=== PATIENT | female | born 1965 | race African-American/Black ===

== ENCOUNTER 2016-12-18 20:39 | Observation (INO) | payer MEDICARE, OTHER ==
[~2016-12-18] VITALS: Ht 172.7 cm; Wt 55.0 kg
[~2016-12-18 20:39] MED LIST: FOLI1TAB4 PO; HYDR500C2 PO; LEVE500 PO; LISI10TA3 PO; TYLETAB34 PO
[2016-12-18 21:45] VITALS: BP 126/64; PULSE 113; RESP 16; TEMP 98.7; O2SAT 100
[2016-12-18 21:50] LABS: MEAN CORPUSCULAR HGB CONC 37.4 % (32.0-36.0)
[2016-12-18 21:56] VITALS: BP 126/64; PULSE 109; RESP 22; O2SAT 90; O2SAT 93
[2016-12-18] MEDS ORDERED: SODIUM CHLORIDE 0.9% FLUSH 10 ML FLUSH IVF PRN (22:00)
--- NOTE | 2016-12-18 22:00 | PD ---
HPI Chief Complaint: Seizure Time Seen by Provider: 21:45 Travel History International Travel<30 days: No Contact w/Intl Traveler<30days: No Traveled to known affect area: No History of Present Illness HPI 51-year-old female with history of sickle cell disease, beta+thalassemia, seizure disorder on Keppra, developmental delay, here with mom for evaluation of seizure. The patient had a witnessed seizure while sitting in her chair that lasted for approximately 5 minutes according to her mom. Patient did not fall out of her chair or injure herself. Upon arrival to the emergency department the patient is awake and alert. She states that she feels well. She denies headache. She denies pain anywhere. No recent fever, cough, or illness. PFSH Past Medical History Arthritis: No Asthma: No Autoimmune Disease: No Anxiety: Yes Depression: No Heart Rhythm Problems: No Cancer: No Cardiovascular Problems: Yes (HEART MURMER) High Cholesterol: No Chemotherapy: No Chest Pain: No Congestive Heart Failure: No COPD: No Cerebrovascular Accident: No Developmental Delay: Yes ("BRAIN DAMAGE SINCE 2 YEARS OLD") Diabetes: No Endocrine: No GERD: No Genitourinary: Yes Headaches: Yes Hiatal Hernia: No Immune Disorder: No Kidney Stones: No Musculoskeletal: No Neurologic: Yes Psychiatric: Yes Reproductive: Yes Respiratory: No Immunizations Current: Yes Migraines: Yes Radiation Therapy: No Renal Failure: No Seizures: Yes (2005 AND 02/14/08) Sickle Cell Disease: Yes Sleep Apnea: No Thyroid Disease: No Ulcer: No PNEUMOCCOCAL Vaccine (Year): 1 ?: Not Menopausal: Yes : 0 Para: 0 Miscarriage: 0 : 0 Tubal Ligation: Yes Past Surgical History Abdominal Surgery: No AICD: No Arteriovenous Shunt: No Cardiac Surgery: No Cholecystectomy: Yes (UNABLE TO VERIFY) Ear Surgery: No Endocrine Surgery: No Eye Surgery: No Genitourinary Surgery: No Gynecologic Surgery: Yes (TUBAL LIGATION) Insulin Pump: No Joint Replacement: No Oral Surgery: No Pacemaker: No Thoracic Surgery: No Other Surgery: Yes Social History Alcohol Use: No Tobacco Use: No Substance Use: No Allergies-Medications (Allergen,Severity, Reaction): Coded Allergies: Erythromycin (Verified Allergy, Severe, 09/29/16) Uncoded Allergies: MYCINS (Allergy, Severe, EDEMA, 09/26/13) Reported Meds & Prescriptions Reported Meds & Active Scripts Active Lisinopril 10 Mg Tab 10 Mg PO DAILY Reported Hydroxyurea 500 Mg Cap 500 Mg PO BID Keppra (Levetiracetam) 500 Mg Tab 500 Mg PO BID Folate (Folic Acid) 1 Mg Tab 1 Mg PO DAILY Tylenol-Codeine #3 (Acetaminophen-Codeine) 300-30 mg Tab 1 Tab PO Q6H PRN Review of Systems Except as stated in HPI: all other systems reviewed are Neg Physical Exam Narrative GENERAL: Well-developed, well-nourished, awake, alert, no acute distress. SKIN: Focused skin assessment warm/dry. HEAD: Atraumatic. Normocephalic. EYES: Pupils equal and round. No scleral icterus. No injection or drainage. ENT: Mucous membranes pink and moist. NECK: Trachea midline. No JVD. No nuchal rigidity. CARDIOVASCULAR: Regular rate and rhythm. RESPIRATORY: No accessory muscle use. Clear to auscultation. Breath sounds equal bilaterally. GASTROINTESTINAL: Abdomen soft, non-tender, nondistended. MUSCULOSKELETAL: No obvious deformities. No clubbing. No cyanosis. No edema. NEUROLOGICAL: Awake and alert. No obvious cranial nerve deficits. Motor grossly within normal limits. Normal speech. PSYCHIATRIC: Appropriate mood and affect; insight and judgment normal. Data Data Last Documented VS Vital Signs Date Time Temp Pulse Resp B/P Pulse Ox O2 Delivery O2 Flow Rate FiO2 12/18/16 21:56 90 Nasal Cannula 4 12/18/16 21:56 109 22 126/64 12/18/16 21:45 98.7 Orders Complete Blood Count With Diff (12/18/16 21:48) Blood Glucose (12/18/16 21:48) Ecg Monitoring (12/18/16 21:48) Iv Access Insert/Monitor (12/18/16 21:48) Oximetry (12/18/16 21:48) Comprehensive Metabolic Panel (12/18/16 21:48) Sodium Chloride 0.9% Flush (Ns Flush) (12/18/16 22:00) Urinalysis - C+S If Indicated (12/18/16 21:48) Retic Count (12/18/16 21:48) Ct Brain W/O Iv Contrast(Rout) (12/18/16 21:57) Chest, Single Ap (12/18/16 ) Type And Screen (12/18/16 22:19) Ldh Serum (12/18/16 22:38) Red Blood Cells (Rbc) (12/18/16 22:43) Blood Product Administration .UPON TRANSFUSION (12/18/16 22:43) Sodium Chlor 0.9% 250 Ml Inj (Ns 250 Ml (12/18/16 22:45) Urine Culture (12/18/16 22:30) Labs Laboratory Tests Test 12/18/16 12/18/16 21:55 22:30 White Blood Count 5.4 TH/MM3 Red Blood Count 1.42 MIL/MM3 Hemoglobin 5.2 GM/DL Hematocrit 14.0 % Mean Corpuscular Volume 98.2 FL Mean Corpuscular Hemoglobin 36.7 PG Mean Corpuscular Hemoglobin 37.4 % Concent Red Cell Distribution Width 27.0 % Platelet Count 178 TH/MM3 Mean Platelet Volume 7.5 FL Neutrophils (%) (Auto) 61.1 % Lymphocytes (%) (Auto) 21.6 % Monocytes (%) (Auto) 13.1 % Eosinophils (%) (Auto) 3.1 % Basophils (%) (Auto) 1.1 % Neutrophils # (Auto) 3.3 TH/MM3 Lymphocytes # (Auto) 1.2 TH/MM3 Monocytes # (Auto) 0.7 TH/MM3 Eosinophils # (Auto) 0.2 TH/MM3 Basophils # (Auto) 0.1 TH/MM3 CBC Comment AUTO DIFF Differential Total Cells 100 Counted Neutrophils % (Manual) 67 % Lymphocytes % 23 % Monocytes % 8 % Eosinophils % 2 % Neutrophils # (Manual) 3.6 TH/MM3 Nucleated Red Blood Cells 13 /100 WBC Differential Comment FINAL DIFF MANUAL Platelet Estimate NORMAL Platelet Morphology Comment NORMAL Polychromasia 2.5 % Sickle Cells 3+ Ovalocytes 1+ Reticulocyte Count 12.4 % Absolute Reticulocyte Count 175.9 MIL/L Sodium Level 141 MEQ/L Potassium Level 4.4 MEQ/L Chloride Level 108 MEQ/L Carbon Dioxide Level 24.8 MEQ/L Anion Gap 8 MEQ/L Blood Urea Nitrogen 18 MG/DL Creatinine 0.84 MG/DL Estimat Glomerular Filtration 86 ML/MIN Rate Random Glucose 113 MG/DL Calcium Level 8.5 MG/DL Total Bilirubin 2.5 MG/DL Aspartate Amino Transf 61 U/L (AST/SGOT) Alanine Aminotransferase 24 U/L (ALT/SGPT) Alkaline Phosphatase 128 U/L Lactate Dehydrogenase 934 U/L Total Protein 7.2 GM/DL Albumin 3.5 GM/DL Urine Color LIGHT-YELLOW Urine Turbidity CLEAR Urine pH 6.5 Urine Specific [place] 1.007 Urine Protein 30 mg/dL Urine Glucose (UA) NEG mg/dL Urine Ketones NEG mg/dL Urine Occult Blood MOD Urine Nitrite NEG Urine Bilirubin NEG Urine Urobilinogen LESS THAN 2.0 MG/DL Urine Leukocyte Esterase NEG Urine RBC LESS THAN 1 /hpf Urine WBC 1 /hpf Urine Bacteria RARE /hpf Urine Mucus FEW /lpf Microscopic Urinalysis Comment CATH-CULTURE IND MDM Medical Decision Making Medical Screen Exam Complete: Yes Emergency Medical Condition: Yes Differential Diagnosis Seizure, sickle cell crisis, intracranial abnormality, metabolic abnormality Narrative Course Initial vital signs show heart rate 113, blood pressure 126/64, pulse ox 100% on room air, oral temp of 98.7F. CBC is remarkable for hemoglobin 5.2, hematocrit 14 which is slightly lower than her baseline of around 6. Retic count is 12.4%. Patient is awake and alert. There are no focal neurologic deficits. She is not in any respiratory distress. Case discussed with on-call tour sales representative Dr. Castro covering for Dr. Kelly. Patient will be transfused 1 unit of PRBCs. He would like LVH and T bili checked to evaluate for possible hemolysis. The patient and the patient's mom were made aware of recommendation for PRBCs. CMP is essentially unremarkable. T bili is 2.5 which is around her baseline. Case discussed with electromedical service engineer. The patient will be admitted to their service for overnight observation under Dr. Ponce Diagnosis Primary Impression: Seizure Additional Impression: Sickle cell anemia Qualified Code: D57.00 - Hb-SS disease with crisis Admitting Information Admitting Physician Requests: Observation Brayden Waters MD Dec 18, 2016 22:00
[2016-12-18 22:10] LABS: AUTOMATED NEUTROPHIL # 3.3 TH/MM3 (1.8-7.7); BASOPHIL # 0.1 TH/MM3 (0-0.2); BASOPHIL % 1.1 % (0.0-2.0); EOSINOPHIL # 0.2 TH/MM3 (0-0.4); EOSINOPHIL % 3.1 % (0.0-4.0); LYMPH % 21.6 % (9.0-44.0); LYMPHOCYTE # 1.2 TH/MM3 (1.0-4.8); MEAN CELL VOLUME 98.2 FL (80.0-100.0); MEAN CORPUSCULAR HEMOGLOBIN 36.7 PG (27.0-34.0); MONO % 13.1 % (0.0-8.0); NEUT % 61.1 % (16.0-70.0); PLATELET COUNT 178 TH/MM3 (150-450); RED BLOOD COUNT 1.42 MIL/MM3 (4.00-5.30); RETIC % 12.4 % (0.4-3.0); WHITE BLOOD COUNT 5.4 TH/MM3 (4.0-11.0)
[2016-12-18 22:12] LABS: HEMO FLAGS AUTO DIFF
[2016-12-18 22:13] LABS: REVIEW FLAG AUTO DIFF
[2016-12-18 22:30] VITALS: BP 125/80; PULSE 94; RESP 18; O2SAT 99
--- NOTE | 2016-12-18 22:37 | RADRPT ---
EXAM DATE/TIME: 12/18/2016 22:03 [facility] COMPARISON: CT BRAIN W/O CONTRAST, July 11, 2015, 16:50. INDICATIONS : Seizures and altered mental status. RADIATION DOSE: 33.84 CTDIvol (mGy) MEDICAL HISTORY : Seizures. Cardiovascular disease SURGICAL HISTORY : Cholecystectomy. Tubal ligation. ENCOUNTER: Initial ACUITY: 1 day PAIN SCALE: 4/10 LOCATION: cranial TECHNIQUE: Multiple contiguous axial images were obtained of the head. Using automated exposure control and adj ustment of the mA and/or kV according to patient size, radiation dose was kept as low as reasonably a chievable to obtain optimal diagnostic quality images. FINDINGS: CEREBRUM: The ventricles are normal for age. No evidence of midline shift, mass lesion, hemorrhage or acute in farction. No extra-axial fluid collections are seen. POSTERIOR FOSSA: The cerebellum and brainstem are intact. The 4th ventricle is midline. The cerebellopontine angle i s unremarkable. EXTRACRANIAL: The visualized portion of the orbits is intact. SKULL: The calvaria is intact. No evidence of skull fracture. CONCLUSION: Normal examination. Suhail Terrazas MD on December 18, 2016 at 22:34 Board Certified Radiologist. This report was verified electronically.
[2016-12-18] MEDS ORDERED: SODIUM CHLOR 0.9% 250 ML INJ 250 ML IV ONE (22:45)
[2016-12-18 22:50] LABS: ALKALINE PHOSPHATASE 128 U/L (45-117); ALT (GPT) 24 U/L (10-53); ANION GAP 8 MEQ/L (5-15); AST (GOT) 61 U/L (15-37); BICARBONATE 24.8 MEQ/L (21.0-32.0); BLOOD UREA NITROGEN 18 MG/DL (7-18); CHLORIDE 108 MEQ/L (98-107); GLOMERULAR FILTRATION RATE 86 ML/MIN (>89); POTASSIUM 4.4 MEQ/L (3.5-5.1); SODIUM (NA) 141 MEQ/L (136-145); TOTAL BILIRUBIN ADULT 2.5 MG/DL (0.2-1.0)
[2016-12-18 23:03] LABS: BACTERIA, URINE RARE /hpf; BLOOD, URINE MOD (NEG); GLUCOSE,URINE NEG (NEG); KETONE, URINE NEG (NEG); MUCUS URINE FEW /lpf (OCC); NITRITE,URINE NEG (NEG); PH, URINE 6.5 (5.0-8.5); URINE COLOR LIGHT-YELLOW (YELLW/STRAW)
[2016-12-18 23:05] LABS: COMMENT (UR) CATH-CULTURE IND; CULTURE IF INDICATED CATH CULTURE IND
[2016-12-18 23:06] LABS: CORRECTED NUCLEATED RBC 13 /100 WBC (0-0); EOSINOPHILS 2 % (0-4); NEUTROPHIL # MANUAL DIFF 3.6 TH/MM3 (1.8-7.7); POLYS (SEG NEUTROPHILS) 67 % (16-70); WBC DIFF SAMPLE 100
[2016-12-18 23:08] LABS: POLYCHROMASIA 2.5 % (0.0-1.9)
[2016-12-18 23:09] LABS: OVALOCYTES 1+ (NORMAL); PLATELET ESTIMATE SMEAR NORMAL (NORMAL); PLATELET MORPHOLOGY NORMAL (NORMAL); SCAN/DIFF FINAL DIFF MANUAL; SICKLE CELLS 3+ (NORMAL)
[2016-12-18 23:15] VITALS: BP 121/67; PULSE 88; RESP 18; O2SAT 98
--- NOTE | 2016-12-18 23:53 | RADRPT ---
EXAM DATE/TIME: 12/18/2016 23:05 [facility] COMPARISON: CHEST SINGLE AP, March 11, 2014, 11:00. INDICATIONS : Shortness of breath. MEDICAL HISTORY : Cardiovascular disease. Seizures SURGICAL HISTORY : Cholecystectomy. Tubal ligation. ENCOUNTER: Initial ACUITY: 1 day PAIN SCORE: 0/10 LOCATION: Bilateral chest FINDINGS: The cardiac silhouette is enlarged in transverse diameter. There is prominence of the aortic knob is with calcification characteristic of atherosclerotic vascular disease. There are chronic fibrotic pau nges bilaterally. The lungs are hypoinflated. The lungs are free of acute parenchymal opacity. No eff usions are identified. CONCLUSION: 1. Cardiomegaly. No acute pulmonary disease. Pete Vargas MD on December 18, 2016 at 23:50 Board Certified Radiologist. This report was verified electronically.
[2016-12-19] VITALS (13 sets, daily range): BP systolic 107–140; BP diastolic 52–72; PULSE 68–77; RESP 12–20; TEMP 97.4–98.5; O2SAT 95–100
[2016-12-19] MEDS ORDERED: ACETAMINOPHEN 325 MG TAB PO PRN (00:15)
[2016-12-19] MEDS ORDERED: LORazepam 2 MG/ML VIAL IV PRN (00:15)
[2016-12-19] MEDS ORDERED: SODIUM CHLORIDE 0.9% FLUSH 10 ML FLUSH IV FLUSH PRN (00:15)
--- NOTE | 2016-12-19 00:27 | HHI.HP ---
[facility] Service Family Medicine Primary Care Physician Merari Eckert MD Admission Diagnosis seizure, anemia, sickle cell anemia Diagnoses: International Travel<30 Days: No Contact w/Intl Traveler<30days: No Known Affected Area: No History of Present Illness Patient accompanied by mother and sister. Patient of Dr. Merari Eckert. 51 year old female with a history of sickle cell disease, developmental delay, and seizure disorder reports after a witnessed seizure. Her mother witnessed patient have a generalized tonic-clonic seizure that lasted about 10 minutes, with a break of a few seconds in the middle of it. She did not bite her tongue or lose stool or urine. She did not fall down or hit her head. Her mother kept her from injuring herself during the event. She felt weak after the event. No alcohol or drug use, or toxicities reported. Mother called [facility] and patient was transferred to the ED. No recent changes in her seizure medications and she is compliant with dosing per her mother. She has a history of about 5 seizures in her life. She is currently resting in bed and feels back to her baseline. She has no headache, blurry vision, chest pain, shortness of breath, abdominal pain , nausea, vomiting, or diarrhea. She has no dysuria or leg pains. She has intermittent constipation and takes Miralax PRN. Her burner tender is Dr. Kelly and her neurologist is Dr. Lopes. (Tim Cox MD R2) Review of Systems Constitutional: DENIES: Diaphoretic episodes, Fatigue, Fever, Chills, Dizziness , Change in appetite Endocrine: DENIES: Polydipsia, Polyuria, Polyphagia Eyes: DENIES: Blurred vision, Diplopia, Double Vision Ears, nose, mouth, throat: DENIES: Throat pain, Ear Pain, Running Nose Respiratory: DENIES: Cough, Wheezing, Sputum production, Shortness of breath Cardiovascular: DENIES: Chest pain, Dyspnea on Exertion, Lower Extremity Edema , Claudication Gastrointestinal: COMPLAINS OF: Constipation, DENIES: Abdominal pain, Diarrhea , Nausea, Vomiting, Difficulty Swallowing Genitourinary: DENIES: Hematuria Musculoskeletal: DENIES: Muscle aches, Stiffness, Joint Swelling, Back pain, Neck pain Integumentary: DENIES: Rash Hematologic/lymphatic: DENIES: Lymphadenopathy Immunologic/allergic: DENIES: Eczema Neurologic: COMPLAINS OF: Seizures, DENIES: Headache, Paresthesias, Tremor, Poor Balance Psychiatric: DENIES: Anxiety, Confusion, Depression (Tim Cox MD R2) Past Family Social History Past Medical History Beta+ thalassemia Sickle cell anemia, baseline hemoglobin 6.[address] Kelly Has spleen Last pain crisis one month ago, managed in outpatient setting Up to date on vaccines, including pneumovax and flu shot, meningococcal, H. flu , hepatitis B (per mother's report) Developmental delay, moderate mental retardation per records Seizure disorder, followed by Dr. Lopes Past Surgical History Cholecystectomy Tubal ligation Reported Medications Reported Meds & Active Scripts Active Lisinopril 10 Mg Tab 10 Mg PO DAILY Reported Hydroxyurea 500 Mg Cap 500 Mg PO BID Keppra (Levetiracetam) 500 Mg Tab 500 Mg PO BID Folate (Folic Acid) 1 Mg Tab 1 Mg PO DAILY Tylenol-Codeine #3 (Acetaminophen-Codeine) 300-30 mg Tab 1 Tab PO Q6H PRN (Tim Cox MD R2) Allergies: Coded Allergies: Erythromycin (Verified Allergy, Severe, 09/29/16) Uncoded Allergies: MYCINS (Allergy, Severe, EDEMA, 09/26/13) Family History Mother with diabetes and hypertension Social History No smoking, drinking, or drug use Lives with mother Works at [employer] (Tim Cox MD R2) Physical Exam Vital Signs Vital Signs Date Time Temp Pulse Resp B/P Pulse Ox O2 Delivery O2 Flow Rate FiO2 12/18/16 21:56 90 Nasal Cannula 4 12/18/16 21:56 109 22 126/64 93 Nasal Cannula 4 12/18/16 21:45 98.7 113 16 126/64 100 Physical Exam GENERAL: Sitting up in bed, no distress, smiling, joyful SKIN: No rashes, ecchymoses or lesions. HEAD: Atraumatic. Normocephalic. No temporal or scalp tenderness. EYES: Pupils equal round and reactive. Extraocular motions intact. Pale conjunctiva. ENT: Nose without bleeding, purulent drainage or septal hematoma. Throat without erythema, tonsillar hypertrophy or exudate. Uvula midline. Airway patent. NECK: Trachea midline. No JVD or lymphadenopathy. Supple, nontender, no meningeal signs. CARDIOVASCULAR: Regular rate and rhythm without murmurs, gallops, or rubs. RESPIRATORY: CTAB GASTROINTESTINAL: Abdomen soft, non-tender, nondistended. No hepato-splenomegaly , or palpable masses. No guarding. MUSCULOSKELETAL: Extremities without clubbing, cyanosis, or edema. No joint tenderness, effusion, or edema noted. No calf tenderness. NEUROLOGICAL: Awake and alert. Cranial nerves II through XII intact. Motor and sensory grossly within normal limits. Five out of 5 muscle strength in all muscle groups. Normal speech. Laboratory Laboratory Tests Test 12/18/16 12/18/16 12/18/16 21:55 22:30 23:25 White Blood Count 5.4 Red Blood Count 1.42 Hemoglobin 5.2 Hematocrit 14.0 Mean Corpuscular Volume 98.2 Mean Corpuscular Hemoglobin 36.7 Mean Corpuscular Hemoglobin 37.4 Concent Red Cell Distribution Width 27.0 Platelet Count 178 Mean Platelet Volume 7.5 Neutrophils (%) (Auto) 61.1 Lymphocytes (%) (Auto) 21.6 Monocytes (%) (Auto) 13.1 Eosinophils (%) (Auto) 3.1 Basophils (%) (Auto) 1.1 Neutrophils # (Auto) 3.3 Lymphocytes # (Auto) 1.2 Monocytes # (Auto) 0.7 Eosinophils # (Auto) 0.2 Basophils # (Auto) 0.1 CBC Comment AUTO DIFF Differential Total Cells 100 Counted Neutrophils % (Manual) 67 Lymphocytes % 23 Monocytes % 8 Eosinophils % 2 Neutrophils # (Manual) 3.6 Nucleated Red Blood Cells 13 Differential Comment FINAL DIFF MANUAL Platelet Estimate NORMAL Platelet Morphology Comment NORMAL Polychromasia 2.5 Sickle Cells 3+ Ovalocytes 1+ Reticulocyte Count 12.4 Absolute Reticulocyte Count 175.9 Sodium Level 141 Potassium Level 4.4 Chloride Level 108 Carbon Dioxide Level 24.8 Anion Gap 8 Blood Urea Nitrogen 18 Creatinine 0.84 Estimat Glomerular Filtration 86 Rate Random Glucose 113 Calcium Level 8.5 Total Bilirubin 2.5 Aspartate Amino Transf 61 (AST/SGOT) Alanine Aminotransferase 24 (ALT/SGPT) Alkaline Phosphatase 128 Lactate Dehydrogenase 934 Total Protein 7.2 Albumin 3.5 Urine Color LIGHT-YELLOW Urine Turbidity CLEAR Urine pH 6.5 Urine Specific [place] 1.007 Urine Protein 30 Urine Glucose (UA) NEG Urine Ketones NEG Urine Occult Blood MOD Urine Nitrite NEG Urine Bilirubin NEG Urine Urobilinogen LESS THAN 2.0 Urine Leukocyte Esterase NEG Urine RBC LESS THAN 1 Urine WBC 1 Urine Bacteria RARE Urine Mucus FEW Microscopic Urinalysis Comment CATH-CULTURE IND Blood Type A POSITIVE Date/Time Procedure Status Source Growth 12/18/16 22:30 Urine Culture Received Urine Catheterized Urine Pending (Tim Cox MD R2) Result Diagram: 12/18/16215412/18/162154 Imaging Last [address] 12/18/162156 Signed Impressions: Service Date/Time: Sunday, December 18, 2016 22:03 - CONCLUSION: Normal examination. Suhail Terrazas MD Chest X-Ray 12/18/16 0000 Signed Impressions: Service Date/Time: Sunday, December 18, 2016 23:05 - CONCLUSION: 1. Cardiomegaly. No acute pulmonary disease. Pete Vargas MD (Tim Cox MD R2) Septic Shock Reassessment Heart: Other (tachycardic) Lungs: Clear (in right base), Diminished Skin: Warm Capillary Refill: <2 seconds (Tim Cox MD R2) Assessment and Plan Assessment and Plan 51 year old female with history of SSD, beta thalassemia, seizure disorder reports after tonic-clonic seizure. Code Status FULL CODE Discussed Condition With Seen and discussed with Dr. Harrell Discussed with Dr. Waters (Tim Cox MD R2) Attending Attestation Patient seen and examined. Case reviewed and discussed with the resident team. Agree with plan of care as discussed with me and documented in the resident note. Per pts grandmother, who is her main classroom assistant, Ms Hassan does not always take her medicines in the morning. She takes the bus to [employer] which is a school for people with developmental delays and her grandmother will remind her take the meds but she will sometimes get on the bus and skip her pills including her am keppra. Per her grandmother, she does not give her the am dose later in the day as she was told not to "double up" on the pills. So Ms Hassan misses a few doses per week. She only chews her pills and never takes the whole pill intact. She has not had any seizures in 3-4 years per her grandmother. Her ROS was negative as far as recent illness, problems or pain with the exception of a sickle cell crisis about a month ago. pt is status post sedative as she went for imaging so history was obtained from her grandmother (Carine Gonzalez MD) Problem List: (1) Tonic clonic seizures Status: Acute Plan: Witnessed tonic-clonic seizure with a reported history of seizure disorder. Glucose and electrolytes normal. CT head normal. White count normal, no fevers. UA relatively normal, does have some protein and occult blood, rare bacteria, but negative leukocyte esterase and nitrites. - Continue Keppra from home. - Check Keppra level, ensure therapeutic levels. - Consult neurology for input, may require dose or medication changes. - Seizure precautions. - Ativan PRN for seizures lasting greater than 5 minutes. - Regular neurological checks. - Fall precautions. - Because of increased risk for stroke in sickle cell and seizure activity, will obtain MRI brain. - Blood culture to rule out systemic infection, although low suspicion. (2) Sickle cell disease Status: Acute Plan: Hemoglobin 5.2, baseline about 6.0. Retic count 12.4, absolute retic count 175.9. LDH 934. Bilirubin 2.5. UA with negative nitrite and leukocyte esterase. Chest x-ray negative for acute process. - Repeat LDH and haptoglobin in the morning. - Repeat CBC and retic counts in the morning - Consult hematology, Dr. Castro (known to Dr. Kelly). - Per hematology, transfuse 1 unit PRBC. Go slow with transfusions. - Tylenol with codeine for pain control. - Folic acid, multivitamin (3) DVT prophylaxis Status: Acute Plan: - Lovenox 40 mg qday - SCD's (4) Nutrition, metabolism, and development symptoms Status: Acute Plan: - PO fluids, monitor for dehydration. If dehydrated, consider D5 1/2 NS. - Electrolytes normal, monitor - Regular diet. (Tim Cox MD R2) Problem Qualifiers (1) Sickle cell disease: Qualified Code: D57.00 - Hb-SS disease with crisis Tim Cox MD R2 Dec 19, 2016 00:27 Carine Gonzalez MD Dec 19, 2016 12:12
[2016-12-19] MEDS ORDERED: LORazepam 2 MG/ML VIAL IV PUSH ONE (00:45)
[2016-12-19] MEDS ORDERED: POLYETHYLENE GLYCOL 17 GM PKG PO PRN (01:00)
[2016-12-19] MEDS ORDERED: ACETAMINOPHEN/CODEINE 300 MG/30 MG TAB PO PRN (01:00)
[2016-12-19] MEDS: ENOXAPARIN SODIUM 40 MG/0.4 ML SYRINGE SQ SCH (01:27)
[2016-12-19 08:09] LABS: REVIEW FLAG FINAL
[2016-12-19] MEDS: FOLIC ACID 1 MG TAB PO SCH (08:39)
[2016-12-19] MEDS: LISINOPRIL 10 MG TAB PO SCH (08:39)
[2016-12-19] MEDS ORDERED: levETIRAcetam 500 MG TAB PO SCH (09:00)
[2016-12-19] MEDS ORDERED: MULTIVITAMIN TAB PO SCH (09:00)
[2016-12-19] MEDS: SODIUM CHLORIDE 0.9% FLUSH 10 ML FLUSH IV FLUSH SCH ×2 (09:34→20:41)
[2016-12-19] MEDS: HYDROXYUREA 500 MG CAP PO SCH ×2 (09:45→20:43)
[2016-12-19 09:58] LABS: AUTOMATED NEUTROPHIL # 5.2 TH/MM3 (1.8-7.7); BASOPHIL % 0.3 % (0.0-2.0); EOSINOPHIL # 0.2 TH/MM3 (0-0.4); EOSINOPHIL % 2.9 % (0.0-4.0); LYMPH % 19.5 % (9.0-44.0); LYMPHOCYTE # 1.5 TH/MM3 (1.0-4.8); MEAN CELL VOLUME 97.9 FL (80.0-100.0); MEAN CORPUSCULAR HEMOGLOBIN 36.2 PG (27.0-34.0); MONO % 8.6 % (0.0-8.0); NEUT % 68.7 % (16.0-70.0); PLATELET COUNT 235 TH/MM3 (150-450); RED BLOOD COUNT 1.99 MIL/MM3 (4.00-5.30); RED CELL DISTRIBUTION WIDTH 22.7 % (11.6-17.2); WHITE BLOOD COUNT 7.5 TH/MM3 (4.0-11.0)
[2016-12-19 10:01] LABS: HEMO FLAGS AUTO DIFF
[2016-12-19 10:05] LABS: HEMATOCRIT 19.5 % (35.0-46.0)
--- NOTE | 2016-12-19 10:38 | RADRPT ---
EXAM DATE/TIME: 12/19/2016 10:06 [facility] COMPARISON: MRI BRAIN W & W/O CONTRAST, March 11, 2014, 13:32. CT BRAIN W/O CONTRAST, December 18, 2016, 22:03. INDICATIONS : Seizures. MEDICAL HISTORY : Sickle Cell disease. SURGICAL HISTORY : Tubal ligation. ENCOUNTER: Initial ACUITY: 1 day PAIN SCORE: 0/10 LOCATION: cranial TECHNIQUE: Multiplanar, multisequence MRI of the brain was performed without contrast. FINDINGS: There is no evidence for intracranial hemorrhage, mass effect, mass lesions, edema, or extra-axial fl uid collections. The ventricles are normal size for the patient's age. There are no signs of acute infarction for technique. The diffusion portion is unremarkable. The pituitary gland is slightly pro minent in size, however not particularly masslike and not changed since 2013. CONCLUSION: Unremarkable study. Dionicio Cordero MD on December 19, 2016 at 10:34 Board Certified Radiologist. This report was verified electronically.
[2016-12-19 10:58] LABS: CORRECTED NUCLEATED RBC 4 /100 WBC (0-0); EOSINOPHILS 4 % (0-4); HOWELL-JOLLY BODIES PRESENT (NONE SEEN); NEUTROPHIL # MANUAL DIFF 5.4 TH/MM3 (1.8-7.7); PLATELET ESTIMATE SMEAR NORMAL (NORMAL); PLATELET MORPHOLOGY NORMAL (NORMAL); POLYS (SEG NEUTROPHILS) 72 % (16-70); SCAN/DIFF FINAL DIFF MANUAL; SICKLE CELLS 2+ (NORMAL); WBC DIFF SAMPLE 100
--- NOTE | 2016-12-19 11:19 | PD.CONS ---
History of Present Illness Service Neurology Consult Requested By med Reason for Consult sz Primary Care Physician Merari Eckert MD History of Present Illness 51 year old female with a history of sickle cell disease, developmental delay, and seizure disorder reports after a witnessed seizure. Her mother witnessed patient have a generalized tonic-clonic seizure that lasted about 10 minutes. pt poor historian. on keppra for sz's. apparently followed in our office for sz' s glucose 113. sodium, calcium nml. mag not done. keppra level pending. mri brain nml. Review of Systems as above Past Family Social History Past Medical History Beta+ thalassemia Sickle cell anemia, baseline hemoglobin 6.0 Developmental delay, moderate mental retardation per records Seizure disorder, followed by Dr. Lopes Past Surgical History Cholecystectomy Tubal ligation Reported Medications Reported Meds & Active Scripts Active Lisinopril 10 Mg Tab 10 Mg PO DAILY Reported Hydroxyurea 500 Mg Cap 500 Mg PO BID Keppra (Levetiracetam) 500 Mg Tab 500 Mg PO BID Folate (Folic Acid) 1 Mg Tab 1 Mg PO DAILY Tylenol-Codeine #3 (Acetaminophen-Codeine) 300-30 mg Tab 1 Tab PO Q6H PRN Allergies: Coded Allergies: Erythromycin (Verified Allergy, Severe, 09/29/16) Uncoded Allergies: MYCINS (Allergy, Severe, EDEMA, 09/26/13) Family History Mother with diabetes and hypertension Social History No smoking, drinking, or drug use Lives with mother Works at [employer] Review of Systems All other ROS: ROS reviewed as documented in chart Past Family Social History Allergies: Coded Allergies: Erythromycin (Verified Allergy, Severe, 09/29/16) Uncoded Allergies: MYCINS (Allergy, Severe, EDEMA, 09/26/13) Active Ordered Medications Current Medications Medications (Trade) Dose Ordered Sig/Zuri Route Start Time Stop Time Status Last Admin (NS 250 ml Inj) 250 ml @ 15 mls/hr ONCE ONCE IV 12/18/16 22:45 12/19/16 15:24 12/19/16 01:27 (NS Flush) 2 ml UNSCH PRN IV FLUSH 12/19/16 00:15 (NS Flush) 2 ml BID IV FLUSH 12/19/16 09:00 12/19/16 09:34 (Ativan Inj) 2 mg Q10M PRN IV 12/19/16 00:15 (Folate) 1 mg DAILY PO 12/19/16 09:00 12/19/16 08:39 (Hydrea) 500 mg BID PO 12/19/16 09:00 12/19/16 09:45 (Keppra) 500 mg BID PO 12/19/16 09:00 12/19/16 08:39 (Prinivil) 10 mg DAILY PO 12/19/16 09:00 12/19/16 08:39 (Tylenol-Codeine #3) 2 tab Q6H PRN PO 12/19/16 01:00 (Miralax) 17 gm DAILY PRN PO 12/19/16 01:00 (Lovenox Inj) 40 mg Q24H SQ 12/19/16 01:00 12/19/16 01:27 Exam I&O / VS 12/18/16 12/18/16 12/19/16 15:00 23:00 07:00 Intake Total 775 ml Balance 775 ml Intake Oral 360 ml IV Total 415 ml # Voids 1 Vital Signs Date Time Temp Pulse Resp B/P Pulse Ox O2 Delivery O2 Flow Rate FiO2 12/19/16 07:44 97.4 68 18 120/60 97 12/19/16 06:34 98.5 73 18 127/66 97 12/19/16 02:55 69 12 134/72 100 12/19/16 02:04 97.6 74 12 137/65 98 12/19/16 01:55 97.4 70 12 140/65 99 12/19/16 01:37 96 Nasal Cannula 4.00 12/19/16 01:33 97.9 75 16 129/66 99 12/19/16 00:50 97 18 124/67 98 12/18/16 23:15 88 18 121/67 98 Room Air 12/18/16 22:30 94 18 125/80 99 Room Air 12/18/16 21:56 90 Nasal Cannula 4 12/18/16 21:56 109 22 126/64 93 Nasal Cannula 4 12/18/16 21:45 98.7 113 16 126/64 100 General: No acute distress Eye: EOMI Respiratory: Non-labored respirations Musculoskeletal: ROM Neurologic: Alert Exam Comments alert, mumbled speech, ox 1-2. follows, eomi, face sym, ou 3-2mm, mendoza to gravity Review/Management Diagnosis/Plan: (1) Seizure Plan: recs increase keppra to 750mg bid dilantin po bolus x 1 eeg f/u mag level if ok today, d/c planning in am and f/u at our office tele no driving/fall precautions (2) Sickle cell disease Problem Qualifiers (1) Sickle cell disease: Qualified Code: D57.00 - Hb-SS disease with crisis Ulises Trivedi MD Dec 19, 2016 11:19
[2016-12-19] MEDS ORDERED: PHENYTOIN SODIUM 100 MG CAP PO ONE (12:00)
--- NOTE | 2016-12-19 13:07 | MB ---
cc: ZHANE VARNER DATE OF CONSULTATION: 12/19/2016. REASON FOR CONSULTATION: Patient with a history of sickle / beta-plus thalassemia. CHIEF COMPLAINT: The patient had a seizure. HISTORY OF PRESENT ILLNESS: Ms. Hassan is a 51-year-old female with a history of sickle / beta-plus thalassemia disease. She is currently on hydroxyurea 500 milligrams one tablet p.o. twice a day. She has a history of severe neurocognitive dysfunction and she is dependent on her mother. She has a history of moderate pulmonary hypertension and seizure disorder. Her last seizure was in 2013 and she has been on Keppra. She was brought to the emergency department by her mother when a generalized tonic clonic seizure was witnessed for about ten minutes. The patient is unable to describe the events due to her poor cognitive function. She did not fall down or hit her head. There was no tongue-biting or loss of bladder or bowel control. The patient follows with a urologist outpatient. She has undergone extensive workup since her admission and she has been seen by a neurologist and the Keppra dose has been adjusted. She had a chest x-ray on admission which showed cardiomegaly but no acute pulmonary disease. CT of the head was also performed which did not show any acute abnormalities. Brain MRI was also completed. There was no evidence of intracranial hemorrhage, mass effect, lesions or any other acute abnormalities. The patient was found to have hemoglobin of 5.2 on admission. Her baseline hemoglobin is in the high 5's to low 6's. She has not had any fevers, chest pain, cough, congestion or any joint aches and pains. REVIEW OF SYSTEMS: A comprehensive 14-point review of systems was completed which is negative except as described in the history of present illness. PAST MEDICAL HISTORY: 1. Sickle / beta-plus thalassemia. 2. Pulmonary hypertension. 3. Seizure disorder. 4. Neurocognitive deficit. PAST SURGICAL HISTORY: 1. Cholecystectomy. 2. Tubal ligation. HOME MEDICATIONS: 1. Lisinopril 10 milligrams p.o. daily. 2. Hydroxyurea 500 milligrams one tablet p.o. twice a day. 3. Keppra 500 milligrams p.o. twice a day. This has been increased to 750 milligrams p.o. twice a day. 4. Dilantin 500 milligrams one tablet p.o. daily. 5. Folic acid 1 milligram p.o. daily. 6. Enoxaparin 40 milligrams subcutaneous 24 hours. 7. Ativan 2 milligrams IV q. 10 minutes PRN seizures. ALLERGIES: SHE IS ALLERGIC TO ERYTHROMYCIN. PHYSICAL EXAMINATION: VITAL SIGNS: Blood pressure 120/60, pulse is in the 60s, temperature is 97.4, respiratory rate is 14. 02 saturations are 97% on room air. GENERAL: In no apparent distress. HEAD, EYES, EARS, NOSE, THROAT: Pupils are equal, round and reactive to light. Extraocular muscles intact. No oral thrush. No oral lesions. Conjunctivae are pale. NECK: The neck is supple. No jugular venous distention. No bruits. No lymphadenopathy. CHEST: Clear to auscultation bilaterally. CARDIAC: Soft systolic murmur is heard. This is a flow murmur which is chronic. RESPIRATORY: Clear to auscultation bilaterally. ABDOMEN: The abdomen is soft, nontender and nondistended. Bowel sounds are present. No hepatosplenomegaly. EXTREMITIES: Without any edema, erythema or cyanosis. SKIN: Without any petechiae, lesions or bruises. NEUROLOGIC: No focal deficit. PSYCHIATRIC: Mood and affect are appropriate. LABS: WBCs 7.5, hemoglobin is 7.2 after one unit of packed red blood cell transfusion, platelet count is 235,000. Serum chemistries show sodium of 141, potassium 4.4, chloride 108, carbon dioxide 24.8, BUN is 18, creatinine is 0.84, GFR is 86, glucose is 113, total bilirubin is 2.5, AST 61, ALT is 24, alkaline phosphatase is 128. LDH is 934. Total protein is 7.2. Albumin is 3.5. IMAGING STUDIES: Imaging was reviewed in the electronic medical record. ASSESSMENT AND PLAN: Ms. Morgan is a 51-year-old female with a history of sickle / beta-plus thalassemia, pulmonary hypertension, history of significant neurocognitive disorder due to sickle-cell disease and history of moderate pulmonary hypertension and seizure disorder who presented to the emergency department with an episode of tonic-clonic seizure. 1. Seizure activity. We need to rule out any underlying infection. There is no evidence of such at this point. She was a little bit more anemic; however she was not hypoxic on admission. She has been given one unit of packed red blood cells with improvement in her hemoglobin. Brain imaging did not show any acute abnormality. The patient has been seen by neurology and antiseizure medications have been adjusted. 2. Acute anemia secondary to sickle / beta-plus thalassemia. Her baseline hemoglobin is in the high 5's to low 6's. We will avoid over-transfusion in this patient. Currently her oxygen saturations are in the high 90s. She is not dyspneic. We will continue to monitor. There is no evidence of massive hemolysis. Her total bilirubin is at baseline. We will continue to monitor. Continue Hydrea 500 milligrams one tablet p.o. twice a day. Continue folic acid, incentive spirometry. The patient can be discharged home once cleared by other specialties. MD CARINE Biggs/JACKSON /12:03 PM /12:38 PM [facility]
[2016-12-19 19:06] LABS: ALKALINE PHOSPHATASE 119 U/L (45-117); ALT (GPT) 23 U/L (10-53); ANION GAP 4 MEQ/L (5-15); AST (GOT) 49 U/L (15-37); BICARBONATE 27.6 MEQ/L (21.0-32.0); BLOOD UREA NITROGEN 16 MG/DL (7-18); CHLORIDE 105 MEQ/L (98-107); GLOMERULAR FILTRATION RATE 76 ML/MIN (>89); LDH SERUM 860 U/L (84-246); MAGNESIUM 2.1 MG/DL (1.5-2.5); POTASSIUM 4.3 MEQ/L (3.5-5.1); SODIUM (NA) 137 MEQ/L (136-145); TOTAL BILIRUBIN ADULT 2.1 MG/DL (0.2-1.0)
[2016-12-19 19:10] LABS: CREATINE KINASE 86 U/L (26-192)
[2016-12-19] MEDS: levETIRAcetam 500 MG TAB PO SCH (20:41)
[2016-12-19 21:03] LABS: MEAN CORPUSCULAR HGB CONC 36.5 % (32.0-36.0)
[2016-12-20 00:17] VITALS: BP 108/57; PULSE 59; RESP 18; TEMP 98.3; O2SAT 100
[2016-12-20] MEDS: ENOXAPARIN SODIUM 40 MG/0.4 ML SYRINGE SQ SCH (00:27)
[2016-12-20 04:31] VITALS: BP 112/54; PULSE 58; RESP 18; TEMP 98.2; O2SAT 96
[2016-12-20 05:25] LABS: AUTOMATED NEUTROPHIL # 3.2 TH/MM3 (1.8-7.7); BASOPHIL % 0.6 % (0.0-2.0); EOSINOPHIL # 0.4 TH/MM3 (0-0.4); EOSINOPHIL % 6.4 % (0.0-4.0); LYMPHOCYTE # 1.9 TH/MM3 (1.0-4.8); MEAN CELL VOLUME 98.2 FL (80.0-100.0); MEAN CORPUSCULAR HEMOGLOBIN 35.9 PG (27.0-34.0); PLATELET COUNT 207 TH/MM3 (150-450); RED BLOOD COUNT 2.03 MIL/MM3 (4.00-5.30); RED CELL DISTRIBUTION WIDTH 23.1 % (11.6-17.2); RETIC % 8.6 % (0.4-3.0); WHITE BLOOD COUNT 6.2 TH/MM3 (4.0-11.0)
[2016-12-20 05:33] LABS: HEMO FLAGS AUTO DIFF; REVIEW FLAG AUTO DIFF
[2016-12-20 05:36] LABS: HEMATOCRIT 19.9 % (35.0-46.0)
--- NOTE | 2016-12-20 05:40 | MG ---
cc: KELL TREVINO MD Sex: F DATE OF STUDY: 12/19/2016 EEG. [id number] DATE OF : [facility] 1965 HISTORY: 51-year-old with history of seizure. DESCRIPTION: Stage II sleep beginning spindles background, low amplitude, beta activity and some delta. Frontal spike wave epoch 5. Burst arrhythmic. Transition sharp theta bilateral temporal region epoch 18. Limited driving with photic stimulation. Sinus rhythm on single lead EKG. INTERPRETATION Singular spike wave discharge, stable stage II sleep EEG. Clinical correlation. Kell Trevino MD MG/ARTURO /11:41 PM /5:12 AM
[2016-12-20 05:59] LABS: BICARBONATE 25.9 MEQ/L (21.0-32.0); MAGNESIUM 2.2 MG/DL (1.5-2.5); POTASSIUM 4.8 MEQ/L (3.5-5.1)
[2016-12-20] MEDS ORDERED: LEVE500 PO (07:51)
--- NOTE | 2016-12-20 07:52 | HHI.DCPOC ---
Discharge Care Plan Diagnosis: (1) Seizure Goals to Promote Your Health * To prevent worsening of your condition and complications * To maintain your health at the optimal level Directions to Meet Your Goals Take your medications as prescribed Follow your dietary instruction Follow activity as directed Keep your appointments as scheduled Take your immunizations and boosters as scheduled If your symptoms worsen call your PCP, if no PCP go to Urgent Care Center or Emergency Room Smoking is Dangerous to Your Health. Avoid second hand smoke Call the 24-hour hour crisis hotline for domestic abuse at Ghanshyam Quick MD R1 Dec 20, 2016 07:52
[2016-12-20 08:03] VITALS: BP 105/54; PULSE 67; RESP 20; TEMP 98; O2SAT 96
[2016-12-20] MEDS: LISINOPRIL 10 MG TAB PO SCH (08:40)
[2016-12-20] MEDS: FOLIC ACID 1 MG TAB PO SCH (08:40)
[2016-12-20] MEDS: levETIRAcetam 500 MG TAB PO SCH (08:40)
[2016-12-20] MEDS: SODIUM CHLORIDE 0.9% FLUSH 10 ML FLUSH IV FLUSH SCH (08:40)
[2016-12-20] MEDS: HYDROXYUREA 500 MG CAP PO SCH (08:43)
[2016-12-20 08:46] LABS: BANDS 1 % (0-6); BASOPHILS 1 % (0-2); CORRECTED NUCLEATED RBC 13 /100 WBC (0-0); EOSINOPHILS 5 % (0-4); NEUTROPHIL # MANUAL DIFF 3.3 TH/MM3 (1.8-7.7); POLYS (SEG NEUTROPHILS) 53 % (16-70); WBC DIFF SAMPLE 100
[2016-12-20 08:48] LABS: PLATELET ESTIMATE SMEAR NORMAL (NORMAL); PLATELET MORPHOLOGY NORMAL (NORMAL); SCAN/DIFF FINAL DIFF MANUAL; SICKLE CELLS 2+ (NORMAL); TARGET CELLS 1+ (NORMAL)
[2016-12-20 08:49] LABS: HOWELL-JOLLY BODIES PRESENT (NONE SEEN)
--- NOTE | 2016-12-20 11:04 | HHI.FPPN ---
Subjective Remarks Patient feels well this morning and has no complaints. She denies any new seizure activity since presentation to the hospital. She denies any symptoms such as chest pain, palpitations, or dizziness. She denies any fevers or chills. She has been able to get out of bed without issue. She is tolerating regular diet. She feels that she is ready to go home and would like to leave the hospital stay if possible Objective Vitals Vital Signs Date Time Temp Pulse Resp B/P Pulse Ox O2 Delivery O2 Flow Rate FiO2 12/20/16 08:03 98.0 67 20 105/54 96 12/20/16 04:31 98.2 58 18 112/54 96 12/20/16 00:17 98.3 59 18 108/57 100 12/19/16 23:00 95 Nasal Cannula 4.00 12/19/16 20:00 77 12/19/16 19:42 97.9 77 20 107/52 96 12/19/16 18:01 71 12/19/16 17:12 72 18 130/60 95 I/O 12/19/16 12/19/16 12/19/16 12/20/16 12/20/16 12/20/16 07:00 15:00 23:00 07:00 15:00 23:00 Intake Total 775 ml 1320 ml Balance 775 ml 1320 ml Intake Oral 360 ml 1320 ml IV Total 415 ml # Voids 1 7 2 # Bowel Movements 1 Result Diagram: 12/20/16 0418 12/20/16 0418 Imaging Last 48 hours Impressions Brain MRI 12/19/16 0059 Signed Impressions: Service Date/Time: Monday, December 19, 2016 10:06 - CONCLUSION: Unremarkable study. Dionicio Cordero MD Head CT 12/18/16 8794 Signed Impressions: Service Date/Time: Sunday, December 18, 2016 22:03 - CONCLUSION: Normal examination. Suhail Terrazas MD Objective Remarks GENERAL: Sitting up in bed, no distress, smiling, joyful SKIN: No rashes, ecchymoses or lesions. HEAD: Atraumatic. Normocephalic. EYES: Pupils equal round and reactive. Extraocular motions intact. CARDIOVASCULAR: Regular rate and rhythm without murmurs, gallops, or rubs. RESPIRATORY: CTAB GASTROINTESTINAL: Abdomen soft, non-tender, nondistended. MUSCULOSKELETAL: Extremities without clubbing, cyanosis, or edema. NEUROLOGICAL: Awake and alert. Cranial nerves II through XII intact. Motor and sensory grossly within normal limits.Normal speech. A/P Assessment and Plan 51 year old female with history of SSD, beta thalassemia, seizure disorder reports after tonic-clonic seizure. Discharge Planning Possible discharge today if cleared by neurology Problem List: (1) Tonic clonic seizures Status: Acute Plan: Witnessed tonic-clonic seizure with a reported history of seizure disorder. Glucose and electrolytes normal. CT head normal. White count normal, no fevers. Appreciate neurology evaluation: -Keppra increased to 750 mg by mouth twice a day - Received Dilantin bolus 1 by mouth EEG performed shows singular spike-wave discharge, stable stage II sleep EEG. Continue seizure precautions - Ativan as needed for seizures lasting greater than 5 minutes - Physical therapy evaluation recommends home with no physical therapy Possible discharge later today if cleared by neurology (2) Sickle cell disease Status: Acute Plan: Hemoglobin 5.2 on arrival, transfuse 1 unit PRBCs - Repeat hemoglobin 7.3 Hematology was consulted as patient is well-known to them - Recommend transfusion of 1 unit PRBCs, avoid over transfusion as she continues to see saturate well on room air and does not have symptoms such as dyspnea - Continue Hydrea 500 mg by mouth twice daily - Continue folic acid (3) DVT prophylaxis Status: Acute Plan: - Lovenox 40 mg qday - SCD's (4) Nutrition, metabolism, and development symptoms Status: Acute Plan: - PO fluids, monitor for dehydration. - Electrolytes normal, monitor - Regular diet. Problem Qualifiers (1) Sickle cell disease: Qualified Code: D57.00 - Hb-SS disease with crisis Patrice Gallo MD Dec 20, 2016 11:03
[2016-12-20 11:20] VITALS: PULSE 67
[2016-12-20 11:44] VITALS: BP 107/55; PULSE 85; RESP 20; O2SAT 96
--- NOTE | 2016-12-20 12:22 | HHI.PR ---
Review/Management Diagnosis/Plan: (1) Seizure Plan: doing well eeg reviewed. with spike wave would add depakote recs add depakote er 500 qhs if ok today, d/c planning today and can f/u outpatient d/w pt/mother no driving/fall precautions (2) Sickle cell disease Subjective Subjective Comments No acute events reported No headache No chest pain No dyspnea Active Medications Current Medications Medications (Trade) Dose Ordered Sig/Zuri Route Start Time Stop Time Status Last Admin (NS Flush) 2 ml UNSCH PRN IV FLUSH 12/19/16 00:15 (NS Flush) 2 ml BID IV FLUSH 12/19/16 09:00 12/20/16 08:40 (Ativan Inj) 2 mg Q10M PRN IV 12/19/16 00:15 (Folate) 1 mg DAILY PO 12/19/16 09:00 12/20/16 08:40 (Hydrea) 500 mg BID PO 12/19/16 09:00 12/20/16 08:43 (Prinivil) 10 mg DAILY PO 12/19/16 09:00 12/20/16 08:40 (Tylenol-Codeine #3) 2 tab Q6H PRN PO 12/19/16 01:00 (Miralax) 17 gm DAILY PRN PO 12/19/16 01:00 (Lovenox Inj) 40 mg Q24H SQ 12/19/16 01:00 12/20/16 00:27 (Keppra) 750 mg BID PO 12/19/16 21:00 12/20/16 08:40 Allergies Allergies Coded Allergies Erythromycin (Verified Allergy, Severe, 09/29/16) Uncoded Allergies MYCINS ( Allergy, Severe, EDEMA, 09/26/13) Review of Systems All other ROS: ROS reviewed as documented in chart Exam I&O / VS 12/19/16 12/19/16 12/20/16 15:00 23:00 07:00 Intake Total 1320 ml Balance 1320 ml Intake Oral 1320 ml # Voids 7 2 # Bowel Movements 1 Vital Signs Date Time Temp Pulse Resp B/P Pulse Ox O2 Delivery O2 Flow Rate FiO2 12/20/16 11:44 85 20 107/55 96 12/20/16 11:20 67 12/20/16 08:03 98.0 67 20 105/54 96 12/20/16 04:31 98.2 58 18 112/54 96 12/20/16 00:17 98.3 59 18 108/57 100 12/19/16 23:00 95 Nasal Cannula 4.00 12/19/16 20:00 77 12/19/16 19:42 97.9 77 20 107/52 96 12/19/16 18:01 71 12/19/16 17:12 72 18 130/60 95 General: No acute distress Eye: EOMI Respiratory: Non-labored respirations Musculoskeletal: ROM Neurologic: Alert Exam Comments alert, ox 1-2. eating lunch, follows, eomi, face sym, ou 3-2mm, mendoza to gravity Objective Micro and Labs Laboratory Tests Test 12/19/16 12/20/16 18:07 04:18 Haptoglobin LESS THAN 10 Sodium Level 137 138 Potassium Level 4.3 4.8 Chloride Level 105 106 Carbon Dioxide Level 27.6 25.9 Anion Gap 4 6 Blood Urea Nitrogen 16 15 Creatinine 0.93 0.56 Estimat Glomerular Filtration 76 137 Rate Random Glucose 104 80 Calcium Level 8.4 8.8 Magnesium Level 2.1 2.2 Total Bilirubin 2.1 Aspartate Amino Transf 49 (AST/SGOT) Alanine Aminotransferase 23 (ALT/SGPT) Alkaline Phosphatase 119 Lactate Dehydrogenase 860 886 Total Creatine Kinase 86 Total Protein 6.9 Albumin 3.3 Vitamin B12 Level 384 Thyroid Stimulating Hormone 3.060 3rd Gen White Blood Count 6.2 Red Blood Count 2.03 Hemoglobin 7.3 Hematocrit 19.9 Mean Corpuscular Volume 98.2 Mean Corpuscular Hemoglobin 35.9 Mean Corpuscular Hemoglobin 36.5 Concent Red Cell Distribution Width 23.1 Platelet Count 207 Mean Platelet Volume 8.0 Neutrophils (%) (Auto) 51.0 Lymphocytes (%) (Auto) 31.0 Monocytes (%) (Auto) 11.0 Eosinophils (%) (Auto) 6.4 Basophils (%) (Auto) 0.6 Neutrophils # (Auto) 3.2 Lymphocytes # (Auto) 1.9 Monocytes # (Auto) 0.7 Eosinophils # (Auto) 0.4 Basophils # (Auto) 0.0 CBC Comment AUTO DIFF Differential Total Cells 100 Counted Neutrophils % (Manual) 53 Band Neutrophils % 1 Lymphocytes % 32 Monocytes % 8 Eosinophils % 5 Basophils % 1 Neutrophils # (Manual) 3.3 Nucleated Red Blood Cells 13 Differential Comment FINAL DIFF MANUAL Platelet Estimate NORMAL Platelet Morphology Comment NORMAL Sickle Cells 2+ Target Cells 1+ Mahmood-Rover Bodies PRESENT Reticulocyte Count 8.6 Absolute Reticulocyte Count 174.1 Date/Time Procedure Status Source Growth 12/19/16 00:35 Aerobic Blood Culture - Preliminary Resulted Blood Peripheral NO GROWTH IN 1 DAY 12/19/16 00:35 Anaerobic Blood Culture - Preliminary Resulted Blood Peripheral NO GROWTH IN 1 DAY 12/18/16 22:30 Urine Culture - Final Complete Urine Catheterized Urine NO GROWTH IN 48 HOURS. Problem Qualifiers (1) Sickle cell disease: Qualified Code: D57.00 - Hb-SS disease with crisis Ulises Trivedi MD Dec 20, 2016 12:22
[2016-12-20] MEDS ORDERED: DEPA500T3 PO (13:37)
[2016-12-21] MEDS ORDERED: DIVALPROEX SODIUM E.R. 500 MG TAB PO SCH (09:00)
[2016-12-23] MEDS ORDERED: LEVE750T8 PO (09:50)
== END 2016-12-20 15:16 | disposition home or self-care (01) ==
LOC: NEPC 20:39 → NEDA 23:35 → NEPFCDU 12-19 01:11
PROVIDERS: ADMIT Family Medicine; ATTEND Family Medicine
DX: G40.409 Other generalized epilepsy and epileptic syndromes, not intractable, without status epilepticus (principal); D57.00 Hb-SS disease with crisis, unspecified; D56.1 Beta thalassemia; I27.2 Other secondary pulmonary hypertension; F71 Moderate intellectual disabilities; F41.9 Anxiety disorder, unspecified; G93.9 Disorder of brain, unspecified; Z88.1 Allergy status to other antibiotic agents
CPT/HCPCS: 36430; 70450; 70551; 71010; 80048; 80053; 80177; 81001; 82550; 82607; 83010; 83615; 83735; 84443; 85007; 85027; 85044; 86850; 86900; 86901; 86920; 87040; 87086; 95819; 97163; 99285; G0378; G8987; G8988; J1650; J2060; J7050; P9016

== ENCOUNTER → 2017-01-21 | Outpatient (CLI) | payer MEDICARE, OTHER ==
[~2017-01-21] MED LIST changes: +DEPA500T3 PO; -LEVE500 PO; +LEVE750T8 PO
[2017-01-21 07:17] LABS: MEAN CORPUSCULAR HGB CONC 37.4 % (32.0-36.0)
[2017-01-21 07:59] LABS: BASOPHIL # 0.1 TH/MM3 (0-0.2); BASOPHIL % 2.5 % (0.0-2.0); EOSINOPHIL # 0.5 TH/MM3 (0-0.4); EOSINOPHIL % 9.2 % (0.0-4.0); LYMPH % 21.4 % (9.0-44.0); LYMPHOCYTE # 1.1 TH/MM3 (1.0-4.8); MEAN CELL VOLUME 94.9 FL (80.0-100.0); MEAN CORPUSCULAR HEMOGLOBIN 35.5 PG (27.0-34.0); MONO % 10.3 % (0.0-8.0); NEUT % 56.6 % (16.0-70.0); PLATELET COUNT 198 TH/MM3 (150-450); RED BLOOD COUNT 1.81 MIL/MM3 (4.00-5.30); RED CELL DISTRIBUTION WIDTH 22.4 % (11.6-17.2); WHITE BLOOD COUNT 5.2 TH/MM3 (4.0-11.0)
[2017-01-21 08:25] LABS: HDL CHOLESTEROL 71.3 MG/DL (40.0-60.0)
[2017-01-21 08:30] LABS: ALKALINE PHOSPHATASE 118 U/L (45-117); ALT (GPT) 24 U/L (10-53); ANION GAP 9 MEQ/L (5-15); AST (GOT) 62 U/L (15-37); BICARBONATE 24.9 MEQ/L (21.0-32.0); BLOOD UREA NITROGEN 12 MG/DL (7-18); CHLORIDE 108 MEQ/L (98-107); GLOMERULAR FILTRATION RATE 137 ML/MIN (>89); GLUCOSE,FASTING 78 MG/DL (74-99); POTASSIUM 4.1 MEQ/L (3.5-5.1); SODIUM (NA) 142 MEQ/L (136-145); TOTAL BILIRUBIN ADULT 2.5 MG/DL (0.2-1.0)
[2017-01-21 08:34] LABS: HEMO FLAGS AUTO DIFF
[2017-01-21 08:39] LABS: HEMATOCRIT 17.2 % (35.0-46.0)
[2017-01-21 09:15] LABS: BANDS 1 % (0-6); BASOPHILS 4 % (0-2); CORRECTED NUCLEATED RBC 10 /100 WBC (0-0); EOSINOPHILS 11 % (0-4); NEUTROPHIL # MANUAL DIFF 2.7 TH/MM3 (1.8-7.7); POLYS (SEG NEUTROPHILS) 50 % (16-70); WBC DIFF SAMPLE 100
[2017-01-21 09:16] LABS: PLATELET ESTIMATE SMEAR NORMAL (NORMAL); PLATELET MORPHOLOGY NORMAL (NORMAL); SCAN/DIFF FINAL DIFF MANUAL; SICKLE CELLS 3+ (NORMAL)
== END ==
LOC: CLAB 07:11
PROVIDERS: ATTEND Specialist
DX: D57.1 Sickle-cell disease without crisis (principal); R80.8 Other proteinuria; N02.9 Recurrent and persistent hematuria with unspecified morphologic changes; R78.9 Finding of unspecified substance, not normally found in blood; M31.6 Other giant cell arteritis; Z51.81 Encounter for therapeutic drug level monitoring
CPT/HCPCS: 36415; 80053; 80061; 80177; 82043; 82306; 84100; 85007; 85027; 86225

== ENCOUNTER 2017-02-16 10:57 | Emergency (ER) | payer MEDICARE, OTHER ==
[~2017-02-16] VITALS: Ht 167.6 cm; Wt 54.7 kg
[2017-02-16 10:59] VITALS: BP 143/61; PULSE 83; RESP 20; TEMP 98.1; O2SAT 92
--- NOTE | 2017-02-16 11:26 | PD ---
HPI Chief Complaint: Abnormal Results Time Seen by Provider: 11:23 Travel History International Travel<30 days: No Contact w/Intl Traveler<30days: No Traveled to known affect area: No History of Present Illness HPI 51-year-old female with a history of sickle cell anemia, beta thalassemia, MR, seizure disorder presents to the emergency department for evaluation of low hemoglobin. The patient is brought by her mother who is her caregiver. The patient's mother states that she had blood work performed at the outpatient [facility] ordered by her neurologist Dr. Lopes. States that they were called by Dr. Lopes shortly after the blood work was performed and told that her hemoglobin was very low and that she needed to come immediately to the emergency department. Patient's mother states that the patient has been slightly more fatigued over the past 2 weeks then usual but otherwise has had no complaints. The patient denies any chest pain, shortness of breath, abdominal pain, nausea, vomiting, diarrhea, body aches, cough or cold symptoms. No other complaints. PFSH Past Medical History Arthritis: No Asthma: No Autoimmune Disease: No Blood Disorders: No Anxiety: Yes Depression: Yes Heart Rhythm Problems: Yes (Murmur) Cancer: No Cardiovascular Problems: Yes High Cholesterol: No Chemotherapy: No Chest Pain: No Congestive Heart Failure: No COPD: No Cerebrovascular Accident: No Developmental Delay: Yes ("BRAIN DAMAGE SINCE 2 YEARS OLD") Diabetes: No Endocrine: No GERD: No Genitourinary: Yes Headaches: Yes Hiatal Hernia: No Immune Disorder: No Kidney Stones: No Musculoskeletal: No Neurologic: Yes Psychiatric: Yes Reproductive: Yes Respiratory: No Immunizations Current: Yes Migraines: Yes Radiation Therapy: No Renal Failure: No Seizures: Yes (2005 AND 02/14/08) Sickle Cell Disease: Yes Sleep Apnea: No Thyroid Disease: No Ulcer: No PNEUMOCCOCAL Vaccine (Year): 1 Menopausal: Yes : 0 Para: 0 Miscarriage: 0 : 0 Tubal Ligation: Yes Past Surgical History Abdominal Surgery: No AICD: No Arteriovenous Shunt: No Cardiac Surgery: No Cholecystectomy: Yes (UNABLE TO VERIFY) Ear Surgery: No Endocrine Surgery: No Eye Surgery: No Genitourinary Surgery: No Gynecologic Surgery: Yes (TUBAL LIGATION) Insulin Pump: No Joint Replacement: No Oral Surgery: No Pacemaker: No Thoracic Surgery: No Other Surgery: Yes Social History Alcohol Use: No Tobacco Use: No Substance Use: No Allergies-Medications (Allergen,Severity, Reaction): Coded Allergies: Erythromycin (Verified Allergy, Severe, 12/23/16) Uncoded Allergies: MYCINS (Allergy, Severe, EDEMA, 09/26/13) Reported Meds & Prescriptions Reported Meds & Active Scripts Active Levetiracetam 750 Mg Tab 750 Mg PO BID Depakote ER (Divalproex Sodium) 500 Mg Jeffrey 500 Mg PO HS Lisinopril 10 Mg Tab 10 Mg PO DAILY Reported Hydroxyurea 500 Mg Cap 500 Mg PO BID Folate (Folic Acid) 1 Mg Tab 1 Mg PO DAILY Tylenol-Codeine #3 (Acetaminophen-Codeine) 300-30 mg Tab 1 Tab PO Q6H PRN Review of Systems Except as stated in HPI: all other systems reviewed are Neg Physical Exam Narrative GENERAL: Well-nourished and well-developed pleasant patient in no acute distress who is nontoxic appearing. SKIN: Warm and dry. HEAD: Normocephalic and atraumatic. EYES: No injection, drainage, or hyphema noted. PERRLA. EOMI. ENT: No nasal drainage noted. Oropharynx is clear. NECK: Supple and the trachea is midline. CARDIOVASCULAR: Regular rate and rhythm. RESPIRATORY: Breath sounds are equal bilaterally with no accessory muscle use, wheezing, rhonchi, or crackles. GASTROINTESTINAL: Abdomen is soft, non-tender, and nondistended. MUSCULOSKELETAL: No obvious deformities, swelling, cyanosis, or ecchymosis is present throughout the upper and lower extremities. Patient has full range of motion without any signs of neurovascular compromise. NEUROLOGICAL: Awake, alert, and oriented. Normal speech and gait. Cranial nerves are grossly intact. Data Data Last Documented VS Vital Signs Date Time Temp Pulse Resp B/P Pulse Ox O2 Delivery O2 Flow Rate FiO2 02/16/17 11:54 76 16 94 02/16/17 10:59 98.1 143/61 Orders Type And Screen (02/16/17 12:00) Red Blood Cells (Rbc) (02/16/17 12:00) Blood Product Administration .UPON TRANSFUSION (02/16/17 12:00) Sodium Chlor 0.9% 250 Ml Inj (Ns 250 Ml (02/16/17 12:00) MDM Medical Decision Making Medical Screen Exam Complete: Yes Emergency Medical Condition: Yes Differential Diagnosis Sickle cell anemia versus chronic anemia versus symptomatic anemia Narrative Course 51-year-old female is brought to the emergency department by her mother for evaluation of abnormal labs. Patient is afebrile, vital signs are stable. Physical examination is unremarkable. The patient's mother states that she is noticing patient has been a little more tired over the last 2 weeks but the patient is denying any complaints. I'm able to view the labs that were done this morning at our outpatient laboratory Center. Her hemoglobin is noted to be 5.9, hematocrit 15.9. The patient's baseline is around 6. After speaking with the patient's assistant softball coach she will be transfused 1 unit of PRBCs and discharged to home to follow up with him as an outpatient. Discussed this with the patient and family who verbalizes understanding and are in agreement with treatment plan. I discussed the case with my attending physician Dr. Hurtado who is aware of the patients history, physical examination findings, and treatment plan. Physician Communication Physician Communication I spoke with Dr. Kelly hematologsit. Diagnosis Primary Impression: Anemia Qualified Code: D63.8 - Anemia in other chronic diseases classified elsewhere Referrals: Og Kelly MD Patient Instructions: Anemia (ED), General Instructions Additional Instructions: Follow-up with Dr. Kelly as scheduled. Return to the ED for any acute worsening of symptoms. Med/Other Pt SpecificInfo: No Change to Meds Disposition: 01 DISCHARGE HOME Condition: Stable Radha Gutierrez Feb 16, 2017 11:26 Radha Gutierrez Feb 16, 2017 11:26
[2017-02-16] MEDS ORDERED: SODIUM CHLOR 0.9% 250 ML INJ 250 ML IV ONE (12:00)
[2017-02-16 13:55] VITALS: BP 124/60; PULSE 67; RESP 18; TEMP 98.7; O2SAT 98
[2017-02-16 14:09] VITALS: BP 124/61; PULSE 67; RESP 16; TEMP 98.7; O2SAT 98
[2017-02-16 15:25] VITALS: BP 143/65; PULSE 65; RESP 16; TEMP 98.6; O2SAT 97
== END 2017-02-16 15:34 | disposition home or self-care (01) ==
LOC: NEPE 10:57
DX: D64.9 Anemia, unspecified (principal); D57.1 Sickle-cell disease without crisis; D56.1 Beta thalassemia; Z51.81 Encounter for therapeutic drug level monitoring
CPT/HCPCS: 36415; 36430; 80048; 80177; 84450; 84460; 85027; 86850; 86900; 86901; 86920; 99285; P9016

== ENCOUNTER → 2017-02-16 | Outpatient (CLI) | payer MEDICARE, OTHER ==
[2017-02-16 07:09] LABS: MEAN CORPUSCULAR HGB CONC 37.3 % (32.0-36.0)
[2017-02-16 07:34] LABS: MEAN CELL VOLUME 100.9 FL (80.0-100.0); MEAN CORPUSCULAR HEMOGLOBIN 37.6 PG (27.0-34.0); PLATELET COUNT 254 TH/MM3 (150-450); RED BLOOD COUNT 1.58 MIL/MM3 (4.00-5.30)
[2017-02-16 08:04] LABS: BICARBONATE 27.1 MEQ/L (21.0-32.0); POTASSIUM 4.3 MEQ/L (3.5-5.1)
[2017-02-16 08:20] LABS: REVIEW FLAG FINAL
[2017-02-16 08:22] LABS: HEMATOCRIT 15.9 % (35.0-46.0)
== END ==
LOC: CLAB 06:58
PROVIDERS: ATTEND Specialist
DX: Z51.81 Encounter for therapeutic drug level monitoring (principal)
CPT/HCPCS: 36415; 80048; 80177; 84450; 84460; 85027

== ENCOUNTER 2017-03-17 20:49 | Emergency (ER) | payer MEDICARE, MEDICAID ==
[~2017-03-17] VITALS: Ht 177.8 cm; Wt 54.0 kg
[~2017-03-17 20:49] MED LIST changes: -FOLI1TAB4 PO; -HYDR500C2 PO
[2017-03-17 20:53] VITALS: BP 150/67; PULSE 87; RESP 16; TEMP 97.9; O2SAT 95
--- NOTE | 2017-03-17 20:59 | PD ---
Physical Exam Date Seen by Provider: Mar 17, 2017 Time Seen by Provider: 20:58 Narrative 51 yo female here for evaluation of Medical clearance. History of seizures and sickle cell. Not acting right per family. Family unsure. Patient feels not feeling well. History of this before seizures. Been going on all day. Taking her meds. Vitals are stable. Awaiting bed placement. Data Data Last Documented VS Vital Signs Date Time Temp Pulse Resp B/P Pulse Ox O2 Delivery O2 Flow Rate FiO2 03/17/17 20:53 97.9 87 16 150/67 95 Room Air [facility] Medical Record Reviewed: Yes Supervised Visit with LIZETH: No Emmanuel Freeman Mar 17, 2017 20:59
[2017-03-17] MEDS ORDERED: SODIUM CHLOR 0.9% 1000 ML INJ 1,000 ML IV SCH (22:25)
--- NOTE | 2017-03-17 22:25 | PD ---
HPI Chief Complaint: Altered Mental Status Time Seen by Provider: 22:24 Travel History International Travel<30 days: No Contact w/Intl Traveler<30days: No Traveled to known affect area: No History of Present Illness HPI 51-year-old female with history of MR, seizures, sickle cell disease, presents to the emergency department with her family for evaluation of altered mental status. Patient has been complaining more joint pain over the last 2 days. Family says she has been having a case with her eyes that is concerning for seizures. The patient is a poor historian but reports intermittent pain of her legs and abdomen. She denies chest pain. She has not been recently ill. No fevers or chills. Her family is concerned she may be in sickle cell crisis. There are no other symptoms to report at this time. PFSH Past Medical History Arthritis: No Asthma: No Autoimmune Disease: No Blood Disorders: No Anxiety: Yes Depression: Yes Heart Rhythm Problems: Yes (Murmur) Cancer: No Cardiovascular Problems: Yes High Cholesterol: No Chemotherapy: No Chest Pain: No Congestive Heart Failure: No COPD: No Cerebrovascular Accident: No Developmental Delay: Yes ("BRAIN DAMAGE SINCE 2 YEARS OLD") Diabetes: No Diminished Hearing: No Endocrine: No GERD: No Genitourinary: Yes Headaches: Yes Hiatal Hernia: No Immune Disorder: No Kidney Stones: No Musculoskeletal: No Neurologic: Yes Psychiatric: Yes Reproductive: Yes Respiratory: No Immunizations Current: Yes Migraines: Yes Radiation Therapy: No Renal Failure: No Seizures: Yes (2005 AND 02/14/08) Sickle Cell Disease: Yes Sleep Apnea: No Thyroid Disease: No Ulcer: No PNEUMOCCOCAL Vaccine (Year): 1 ?: Not Menopausal: Yes : 0 Para: 0 Miscarriage: 0 : 0 Tubal Ligation: Yes Past Surgical History Abdominal Surgery: No AICD: No Arteriovenous Shunt: No Cardiac Surgery: No Cholecystectomy: Yes (UNABLE TO VERIFY) Ear Surgery: No Endocrine Surgery: No Eye Surgery: No Genitourinary Surgery: No Gynecologic Surgery: Yes (TUBAL LIGATION) Insulin Pump: No Joint Replacement: No Oral Surgery: No Pacemaker: No Thoracic Surgery: No Other Surgery: Yes Social History Alcohol Use: No Tobacco Use: No Substance Use: No Allergies-Medications (Allergen,Severity, Reaction): Coded Allergies: Erythromycin (Verified Allergy, Severe, 12/23/16) Uncoded Allergies: MYCINS (Allergy, Severe, EDEMA, 09/26/13) Reported Meds & Prescriptions Reported Meds & Active Scripts Active Levetiracetam 750 Mg Tab 750 Mg PO BID Depakote ER (Divalproex Sodium) 500 Mg Jeffrey 500 Mg PO HS Lisinopril 10 Mg Tab 10 Mg PO DAILY Reported Tylenol-Codeine #3 (Acetaminophen-Codeine) 300-30 mg Tab 1 Tab PO Q6H PRN Review of Systems ROS Limitations: Poor Historian Except as stated in HPI: all other systems reviewed are Neg Physical Exam Exam Limitations: Poor Historian Narrative GENERAL: Well-nourished, development was delayed female patient, lying in bed, in no acute distress SKIN: Focused skin assessment warm/dry. HEAD: Atraumatic. Normocephalic. EYES: Pupils equal and round. No scleral icterus. No injection or drainage. ENT: No nasal bleeding or discharge. Mucous membranes pink and moist. NECK: Trachea midline. No JVD. CARDIOVASCULAR: Regular rate and rhythm. 2/6 systolic murmur appreciated. RESPIRATORY: No accessory muscle use. Clear to auscultation. Breath sounds equal bilaterally. GASTROINTESTINAL: Abdomen lightly distended but soft. Mild suprapubic tenderness to palpation. Hepatic and splenic margins not palpable. MUSCULOSKELETAL: No obvious deformities. No clubbing. No cyanosis. No edema. NEUROLOGICAL: Awake and alert. Able to assess cranial nerves at this time. Patient moves all extremities without difficulty. Normal speech.. Data Data Last Documented VS Vital Signs Date Time Temp Pulse Resp B/P Pulse Ox O2 Delivery O2 Flow Rate FiO2 03/17/17 20:53 97.9 87 16 150/67 95 Room Air Orders Electrocardiogram (03/17/17 22:25) Basic Metabolic Panel (Bmp) (03/17/17 22:25) Complete Blood Count With Diff (03/17/17 22:25) Urinalysis - C+S If Indicated (03/17/17 22:25) Chest, Single Ap (03/17/17 22:25) Blood Glucose (03/17/17 22:25) Ecg Monitoring (03/17/17 22:25) Iv Access Insert/Monitor (03/17/17 22:25) Oximetry (03/17/17 22:25) Sodium Chloride 0.9% Flush (Ns Flush) (03/17/17 22:30) Sodium Chlor 0.9% 1000 Ml Inj (Ns 1000 M (03/17/17 22:25) Retic Count (03/17/17 22:25) MDM Medical Decision Making Medical Screen Exam Complete: Yes Emergency Medical Condition: Yes Medical Record Reviewed: Yes Differential Diagnosis Electrode abnormality versus sickle cell crisis versus UTI versus breakthrough seizures Narrative Course 51-year-old female presents to emergency department for evaluation of altered mental status. Abrasion is awake. She is a poor historian. She is not currently having any seizure activity. Labs are ordered. 2300 patient is a signed out to my attending physician. Care will be assumed by him at this time. Condition: Stable Shantel Hernández Mar 17, 2017 22:24
[2017-03-17 22:26] LABS: MEAN CORPUSCULAR HGB CONC 36.6 % (32.0-36.0)
[2017-03-17] MEDS ORDERED: SODIUM CHLORIDE 0.9% FLUSH 5 ML FLUSH IV FLUSH PRN (22:30)
--- NOTE | 2017-03-17 22:46 | RADRPT ---
EXAM DATE/TIME: 03/17/2017 22:25 [facility] COMPARISON: CHEST SINGLE AP, December 18, 2016, 23:05. INDICATIONS : Chest pain. MEDICAL HISTORY : Sickle Cell disease. SURGICAL HISTORY : Tubal ligation. ENCOUNTER: Initial ACUITY: 2 days PAIN SCORE: 1/10 LOCATION: Bilateral lower chest FINDINGS: The heart is enlarged. There is mild pulmonary venous congestion typical of sickle cell. There is n o alveolar consolidation or pneumothorax. The bony skeleton looks surprisingly normal. CONCLUSION: Prominent cardiac silhouette otherwise negative. Peter Weiss MD FACR on March 17, 2017 at 22:44 Board Certified Radiologist. This report was verified electronically.
[2017-03-17 23:13] VITALS: RESP 18; O2SAT 98
[2017-03-17] MEDS ORDERED: LEVE500 PO (23:13)
[2017-03-17 23:41] LABS: AUTOMATED NEUTROPHIL # 2.4 TH/MM3 (1.8-7.7); EOSINOPHIL # 0.2 TH/MM3 (0-0.4); EOSINOPHIL % 4.6 % (0.0-4.0); HEMO FLAGS AUTO DIFF; LYMPH % 35.3 % (9.0-44.0); LYMPHOCYTE # 1.8 TH/MM3 (1.0-4.8); MEAN CELL VOLUME 101.8 FL (80.0-100.0); MEAN CORPUSCULAR HEMOGLOBIN 37.2 PG (27.0-34.0); MONO % 12.7 % (0.0-8.0); NEUT % 46.4 % (16.0-70.0); PLATELET COUNT 229 TH/MM3 (150-450); RED CELL DISTRIBUTION WIDTH 24.8 % (11.6-17.2); RETIC % 9.3 % (0.4-3.0); REVIEW FLAG AUTO DIFF; WHITE BLOOD COUNT 5.2 TH/MM3 (4.0-11.0)
[2017-03-17 23:44] LABS: HEMATOCRIT 16.3 % (35.0-46.0)
[2017-03-17 23:55] LABS: BLOOD, URINE TRACE (NEG); GLUCOSE,URINE NEG (NEG); KETONE, URINE NEG (NEG); NITRITE,URINE NEG (NEG); PH, URINE 5.5 (5.0-8.5); URINE COLOR LIGHT-YELLOW (YELLW/STRAW)
[2017-03-17 23:56] LABS: COMMENT (UR) CATH-CULT NOT IND; CULTURE IF INDICATED CATH CULTURE NOT IND
[2017-03-18 00:12] LABS: BICARBONATE 23.9 MEQ/L (21.0-32.0); POTASSIUM 4.7 MEQ/L (3.5-5.1)
[2017-03-18 00:19] LABS: CORRECTED NUCLEATED RBC 22 /100 WBC (0-0); EOSINOPHILS 3 % (0-4); NEUTROPHIL # MANUAL DIFF 2.3 TH/MM3 (1.8-7.7); POLYS (SEG NEUTROPHILS) 45 % (16-70); SCAN/DIFF FINAL DIFF MANUAL; WBC DIFF SAMPLE 100
[2017-03-18 00:20] LABS: PLATELET ESTIMATE SMEAR NORMAL (NORMAL); PLATELET MORPHOLOGY NORMAL (NORMAL); SICKLE CELLS 1+ (NORMAL)
[2017-03-18 00:26] LABS: POLYCHROMASIA 5.9 % (0.0-1.9)
[2017-03-18 00:27] LABS: ACANTHOCYTES OCC (NORMAL)
--- NOTE | 2017-03-18 00:28 | PD ---
Data Data Last Documented VS Vital Signs Date Time Temp Pulse Resp B/P Pulse Ox O2 Delivery O2 Flow Rate FiO2 03/17/17 23:13 18 98 Room Air 03/17/17 20:53 97.9 87 150/67 Orders Electrocardiogram (03/17/17 22:25) Basic Metabolic Panel (Bmp) (03/17/17 22:25) Complete Blood Count With Diff (03/17/17 22:25) Urinalysis - C+S If Indicated (03/17/17 22:25) Chest, Single Ap (03/17/17 22:25) Blood Glucose (03/17/17 22:25) Ecg Monitoring (03/17/17 22:25) Iv Access Insert/Monitor (03/17/17:) Oximetry (03/17/17:) Sodium Chloride 0.9% Flush (Ns Flush) (03/17/17 22:30) Sodium Chlor 0.9% 1000 Ml Inj (Ns 1000 M (03/17/17 22:25) Retic Count (03/17/17 22:25) Labs Laboratory Tests Test 03/17/17 23:26 White Blood Count 5.2 TH/MM3 Red Blood Count 1.60 MIL/MM3 Hemoglobin 6.0 GM/DL Hematocrit 16.3 % Mean Corpuscular Volume 101.8 FL Mean Corpuscular Hemoglobin 37.2 PG Mean Corpuscular Hemoglobin 36.6 % Concent Red Cell Distribution Width 24.8 % Platelet Count 229 TH/MM3 Mean Platelet Volume 7.8 FL Neutrophils (%) (Auto) 46.4 % Lymphocytes (%) (Auto) 35.3 % Monocytes (%) (Auto) 12.7 % Eosinophils (%) (Auto) 4.6 % Basophils (%) (Auto) 1.0 % Neutrophils # (Auto) 2.4 TH/MM3 Lymphocytes # (Auto) 1.8 TH/MM3 Monocytes # (Auto) 0.7 TH/MM3 Eosinophils # (Auto) 0.2 TH/MM3 Basophils # (Auto) 0.0 TH/MM3 CBC Comment AUTO DIFF Reticulocyte Count 9.3 % Absolute Reticulocyte Count 149.4 MIL/L Urine Color LIGHT-YELLOW Urine Turbidity CLEAR Urine pH 5.5 Urine Specific [place] 1.009 Urine Protein TRACE mg/dL Urine Glucose (UA) NEG mg/dL Urine Ketones NEG mg/dL Urine Occult Blood TRACE Urine Nitrite NEG Urine Bilirubin NEG Urine Urobilinogen LESS THAN 2.0 MG/DL Urine Leukocyte Esterase TRACE Urine RBC LESS THAN 1 /hpf Urine WBC 2 /hpf Microscopic Urinalysis Comment CATH-CULT NOT IND Sodium Level 140 MEQ/L Potassium Level 4.7 MEQ/L Chloride Level 110 MEQ/L Carbon Dioxide Level 23.9 MEQ/L Anion Gap 6 MEQ/L Blood Urea Nitrogen 21 MG/DL Creatinine 0.67 MG/DL Estimat Glomerular Filtration 111 ML/MIN Rate Random Glucose 100 MG/DL Calcium Level 8.6 MG/DL MDM Supervised Visit with LIZETH: Yes Narrative Course The history, exam, and medical decision-making in the associated mid-level provider note were completed with my assistance. I reviewed and agree with the findings presented. I attest that I had a [id number] encounter with the patient on the same day, and personally performed and documented my assessment and findings in the medical record. *My assessment and Findings: 51 year-old woman with developmental delay, seizure disorder, and sickle cell disease presents emergency department brought in by her mom for not quite acting right, talking strange, getting dressed when it some time to work etc. She looks well. There is no evidence of any new pathology. Mom does not describe any episodes systolic seizures. She has appointment with neurology already. She has marked anemia, but consistent with baseline. Recommend outpatient follow-up. Diagnosis Primary Impression: Altered mental status Additional Instruction: Continue current medications. Follow with her primary doctor in the next 2-3 days. Return to the emergency department for any new or worsening symptoms. Med/Other Pt SpecificInfo: No Change to Meds Disposition: 01 DISCHARGE HOME Condition: Stable Rocael Wilkes MD Mar 18, 2017 00:27
[2017-03-18 01:01] VITALS: BP 117/56; PULSE 77; RESP 18; O2SAT 95
--- NOTE | 2017-03-18 08:35 | EKG ---
Date Performed: 03/17/2017 Time Performed: 22:56:39 PTAGE: 51 years EKG: Sinus rhythm WITH OCCASIONAL SUPRAVENTRICULAR PREMATURE COMPLEXES VOLTAGE CRITERIA FOR LVH ABNORMAL ECG PREVIOUS TRACING : 07/11/2015 14.43 Compared to previous tracing, diffuse nonspecific T wave ab normalities have resolved. DOCTOR: Jose Catalan Interpretating Date/Time 03/18/2017 08:34:33
== END 2017-03-18 01:02 | disposition home or self-care (01) ==
LOC: NEPC 20:49
DX: R41.82 Altered mental status, unspecified (principal); G40.909 Epilepsy, unspecified, not intractable, without status epilepticus; D57.1 Sickle-cell disease without crisis; R94.31 Abnormal electrocardiogram [ECG] [EKG]; F41.9 Anxiety disorder, unspecified; F32.9 Major depressive disorder, single episode, unspecified; Z79.899 Other long term (current) drug therapy; Z88.1 Allergy status to other antibiotic agents; Z88.8 Allergy status to other drugs, medicaments and biological substances
CPT/HCPCS: 71010; 80048; 81001; 85007; 85027; 85044; 93005; 99285; J7030

== ENCOUNTER → 2017-03-30 | Outpatient (CLI) | payer MEDICARE, MEDICAID ==
[~2017-03-30] MED LIST changes: +LEVE500 PO; -LEVE750T8 PO
[2017-03-30 07:48] LABS: MEAN CORPUSCULAR HGB CONC 36.7 % (32.0-36.0)
[2017-03-30 08:27] LABS: AUTOMATED NEUTROPHIL # 2.4 TH/MM3 (1.8-7.7); BASOPHIL # 0.1 TH/MM3 (0-0.2); BASOPHIL % 1.5 % (0.0-2.0); EOSINOPHIL # 0.2 TH/MM3 (0-0.4); LYMPH % 24.8 % (9.0-44.0); MEAN CELL VOLUME 99.5 FL (80.0-100.0); MEAN CORPUSCULAR HEMOGLOBIN 36.6 PG (27.0-34.0); MONO % 12.4 % (0.0-8.0); NEUT % 57.3 % (16.0-70.0); PLATELET COUNT 242 TH/MM3 (150-450); WHITE BLOOD COUNT 4.2 TH/MM3 (4.0-11.0)
[2017-03-30 08:29] LABS: HEMO FLAGS AUTO DIFF
[2017-03-30 08:32] LABS: HEMATOCRIT 16.9 % (35.0-46.0)
[2017-03-30 08:50] LABS: ALT (GPT) 20 U/L (10-53); ANION GAP 6 MEQ/L (5-15); AST (GOT) 42 U/L (15-37); BICARBONATE 26.1 MEQ/L (21.0-32.0); BLOOD UREA NITROGEN 7 MG/DL (7-18); CHLORIDE 111 MEQ/L (98-107); GLOMERULAR FILTRATION RATE 160 ML/MIN (>89); GLUCOSE,FASTING 81 MG/DL (74-99); POTASSIUM 4.1 MEQ/L (3.5-5.1); SODIUM (NA) 143 MEQ/L (136-145)
[2017-03-30 08:53] LABS: ALKALINE PHOSPHATASE 74 U/L (45-117); TOTAL BILIRUBIN ADULT 2.6 MG/DL (0.2-1.0)
[2017-03-30 10:06] LABS: CORRECTED NUCLEATED RBC 3 /100 WBC (0-0); EOSINOPHILS 3 % (0-4); NEUTROPHIL # MANUAL DIFF 2.5 TH/MM3 (1.8-7.7); POLYS (SEG NEUTROPHILS) 59 % (16-70); WBC DIFF SAMPLE 100
[2017-03-30 10:07] LABS: PLATELET ESTIMATE SMEAR NORMAL (NORMAL); PLATELET MORPHOLOGY NORMAL (NORMAL); SCAN/DIFF FINAL DIFF MANUAL
[2017-03-30 10:09] LABS: SICKLE CELLS 2+ (NORMAL); TARGET CELLS 1+ (NORMAL)
[2017-03-30 10:10] LABS: HOWELL-JOLLY BODIES PRESENT (NONE SEEN)
== END ==
LOC: CLAB 07:30
PROVIDERS: ATTEND Internal Medicine Nephrology
DX: R80.1 Persistent proteinuria, unspecified (principal); R31.9 Hematuria, unspecified; D64.9 Anemia, unspecified; Z51.81 Encounter for therapeutic drug level monitoring
CPT/HCPCS: 36415; 80053; 80177; 82043; 85007; 85027

== ENCOUNTER → 2017-09-29 | Outpatient (CLI) | payer MEDICARE, OTHER ==
[~2017-09-29] MED LIST changes: -DEPA500T3 PO; +HYDR500C PO; +TRAM50TA PO; -TYLETAB34 PO
[2017-09-29 08:04] LABS: AUTOMATED NEUTROPHIL # 2.5 TH/MM3 (1.8-7.7); BASOPHIL # 0.1 TH/MM3 (0-0.2); BASOPHIL % 1.3 % (0.0-2.0); EOSINOPHIL # 0.4 TH/MM3 (0-0.4); EOSINOPHIL % 7.2 % (0.0-4.0); LYMPH % 29.3 % (9.0-44.0); LYMPHOCYTE # 1.4 TH/MM3 (1.0-4.8); MEAN CELL VOLUME 94.2 FL (80.0-100.0); MEAN CORPUSCULAR HEMOGLOBIN 34.9 PG (27.0-34.0); MEAN PLATELET VOLUME 7.1 FL (7.0-11.0); MONO % 11.8 % (0.0-8.0); MONOCYTE # 0.6 TH/MM3 (0-0.9); NEUT % 50.4 % (16.0-70.0); PLATELET COUNT 269 TH/MM3 (150-450); RED BLOOD COUNT 1.85 MIL/MM3 (4.00-5.30); RED CELL DISTRIBUTION WIDTH 25.9 % (11.6-17.2); WHITE BLOOD COUNT 4.9 TH/MM3 (4.0-11.0)
[2017-09-29 08:11] LABS: MEAN CORPUSCULAR HGB CONC 37.1 % (32.0-36.0)
[2017-09-29 08:12] LABS: HEMATOCRIT 17.5 % (35.0-46.0); HEMOGLOBIN 6.5 GM/DL (11.6-15.3)
[2017-09-29 08:16] LABS: ALT (GPT) 22 U/L (10-53); AST (GOT) 61 U/L (15-37); BICARBONATE 25.1 MEQ/L (21.0-32.0); BLOOD UREA NITROGEN 20 MG/DL (7-18); CALCIUM 8.6 MG/DL (8.5-10.1); CHLORIDE 112 MEQ/L (98-107); GLOMERULAR FILTRATION RATE 90 ML/MIN (>89); GLUCOSE,FASTING 86 MG/DL (74-99); SODIUM (NA) 144 MEQ/L (136-145)
[2017-09-29 08:18] LABS: % SATURATION IRON PROFILE 57.6 % (20-50); CHOLESTEROL 213 MG/DL (120-200); IRON (FE) 171 MCG/DL (50-170); PHOSPHORUS 4.7 MG/DL (2.5-4.9); TOTAL IRON BINDING CAPACITY 297 MCG/DL (250-450); TRIGLYCERIDES 102 MG/DL (42-150)
[2017-09-29 08:19] LABS: CHOLESTEROL/ HDL RATIO 2.88 RATIO; HDL CHOLESTEROL 73.8 MG/DL (40.0-60.0); LDL CHOLESTEROL 119 MG/DL (0-99)
[2017-09-29 08:27] LABS: ALKALINE PHOSPHATASE 132 U/L (45-117); FREE T4 0.89 NG/DL (0.76-1.46); TOTAL BILIRUBIN ADULT 3.1 MG/DL (0.2-1.0); TOTAL PROTEIN 8.1 GM/DL (6.4-8.2)
[2017-09-29 09:21] LABS: BASOPHILS 1 % (0-2); CORRECTED NUCLEATED RBC 13 /100 WBC (0-0); LYMPHOCYTES 22 % (9-44); MONOCYTES 12 % (0-8); NEUTROPHIL # MANUAL DIFF 2.9 TH/MM3 (1.8-7.7); NUCLEATED RED BLOOD CELL 13 (0-0); POLYS (SEG NEUTROPHILS) 59 % (16-70)
[2017-09-29 09:23] LABS: HOWELL-JOLLY BODIES PRESENT (NONE SEEN)
[2017-09-29 09:24] LABS: POLYCHROMASIA 2.5 % (0.0-1.9); SICKLE CELLS 2+ (NORMAL); TARGET CELLS 1+ (NORMAL)
[2017-09-29 09:25] LABS: OVALOCYTES 1+ (NORMAL)
== END ==
LOC: CLAB 07:29
PROVIDERS: ATTEND Internal Medicine Nephrology
DX: R80.8 Other proteinuria (principal); N02.9 Recurrent and persistent hematuria with unspecified morphologic changes; R63.4 Abnormal weight loss; D57.1 Sickle-cell disease without crisis
CPT/HCPCS: 36415; 80053; 80061; 82043; 82306; 83540; 83550; 84100; 84439; 84443; 85007; 85027; 86225

== ENCOUNTER 2017-11-18 15:55 | Inpatient (IN) | payer MEDICARE, OTHER ==
[~2017-11-18] VITALS: Ht 175.3 cm; Wt 54.0 kg
[2017-11-18 16:15] VITALS: BP 139/64; PULSE 100; RESP 15; TEMP 99.4; O2SAT 99
[2017-11-18] MEDS ORDERED: POTA-163 PO (16:35)
[2017-11-18] MEDS ORDERED: FURO20TA PO (16:35)
--- NOTE | 2017-11-18 17:01 | PD ---
HPI Chief Complaint: Musculoskeletal Complaint Time Seen by Provider: 16:39 Travel History International Travel<30 days: No Contact w/Intl Traveler<30days: No Traveled to known affect area: No History of Present Illness HPI Patient comes emergency department complaining of right knee pain after mechanical fall shortly prior to arrival. Patient describes pain as a burning aching pain over the medial aspect of her right knee that radiates distally. Pain is worse with palpation and try to walk. Denies anything making it better. Denies doing anything for this prior to coming to the emergency department. Denies hitting her head or loss consciousness. Denies any numbness or tingling. Patient is poor historian thus limiting H&P. [facility] Past Medical History Arthritis: No Asthma: No Autoimmune Disease: No Blood Disorders: No Anxiety: Yes Depression: Yes Heart Rhythm Problems: Yes (Murmur) Cancer: No Cardiovascular Problems: Yes High Cholesterol: No Chemotherapy: No Chest Pain: No Congestive Heart Failure: No Cirrhosis: No COPD: No Cerebrovascular Accident: No Developmental Delay: Yes ("BRAIN DAMAGE SINCE 2 YEARS OLD") Diabetes: No Diminished Hearing: No Endocrine: No GERD: No Genitourinary: Yes Headaches: Yes Hiatal Hernia: No Immune Disorder: No Implanted Vascular Access Dvce: No Kidney Stones: No Musculoskeletal: No Neurologic: Yes Psychiatric: Yes Reproductive: Yes Respiratory: No Immunizations Current: Yes Migraines: Yes Radiation Therapy: No Renal Failure: No Seizures: Yes (2005 AND 02/14/08) Sickle Cell Disease: Yes Sleep Apnea: No Thyroid Disease: No Ulcer: No PNEUMOCCOCAL Vaccine (Year): 1 ?: Not Menopausal: Yes : 0 Para: 0 Miscarriage: 0 : 0 Tubal Ligation: Yes Past Surgical History Abdominal Surgery: No AICD: No Arteriovenous Shunt: No Cardiac Surgery: No Cholecystectomy: Yes (UNABLE TO VERIFY) Ear Surgery: No Endocrine Surgery: No Eye Surgery: No Genitourinary Surgery: No Gynecologic Surgery: Yes (TUBAL LIGATION) Insulin Pump: No Joint Replacement: No Oral Surgery: No Pacemaker: No Thoracic Surgery: No Other Surgery: Yes (Possible gallbladder) Social History Alcohol Use: No Tobacco Use: No Substance Use: No Allergies-Medications (Allergen,Severity, Reaction): Coded Allergies: erythromycin base (Unverified Allergy, Severe, 11/18/17) Uncoded Allergies: MYCINS (Allergy, Severe, EDEMA, 09/26/13) Reported Meds & Prescriptions Reported Meds & Active Scripts Active Lisinopril 10 Mg Tab 10 Mg PO DAILY Reported Furosemide 20 Mg Tab 20 Mg PO DAILY Potassium Chloride ER (Potassium Chloride) 20 Meq Tab 20 Meq PO DAILY Tramadol (Tramadol HCl) 50 Mg Tab 50 Mg PO Q4H PRN Hydrea (Hydroxyurea) 500 Mg Cap 500 Mg PO DAILY Keppra (Levetiracetam) 500 Mg Tab 500 Mg PO BID Review of Systems ROS Limitations: Poor Historian Except as stated in HPI: all other systems reviewed are Neg Physical Exam Exam Limitations: Poor Historian Narrative GENERAL: Well-developed, well nourished, in no acute distress, and non-ill appearing. SKIN: Focused skin assessment warm and dry. HEAD: Atraumatic. Normocephalic. EYES: Pupils equal and round. EOMI. No scleral icterus. No injection or drainage. ENT: No nasal bleeding or discharge. Mucous membranes pink and moist. NECK: Trachea midline. Supple. No nuclear rigidity. CARDIOVASCULAR: Dorsal pulses 2+, intact, equal bilaterally. Capillary refill less than 2 seconds. RESPIRATORY: No accessory muscle use. No respiratory distress. MUSCULOSKELETAL: No obvious deformities. No clubbing. No cyanosis. No edema. Decreased range of motion right knee secondary to pain. Knee: Negative patellar apprehension, varus and valgus maneuvers, anterior draw test, and eBka test. Pulses equal BL distal to injury. Capillary refill less than 2 seconds distal to injury and equal BL. FROM distal to injury and equal BL. Strength distal to injury equal BL. NV intact distal to injury. Dorsal pulses equal BL. Sensation equal BL 1st web space. Patient reports tenderness palpation over anterior and medial aspect of right knee. There is no crepitus. Soft tissue swelling and effusion noted. NEUROLOGICAL: Awake and alert. No obvious cranial nerve deficits. Motor grossly within normal limits. Normal speech for patient per family. PSYCHIATRIC: Appropriate mood and affect; insight and judgment normal. Data Data Last Documented VS Vital Signs Date Time Temp Pulse Resp B/P (MAP) Pulse Ox O2 Delivery O2 Flow Rate FiO2 11/18/17 16:15 99.4 100 15 139/64 (89) 99 Orders Orders Knee, Complete (4vws) (11/18/17 ) Ice/Cold Pack (11/18/17 16:47) Ibuprofen (Motrin) (11/18/17 17:15) Complete Blood Count With Diff (11/18/17 18:35) Comprehensive Metabolic Panel (11/18/17 18:35) Prothrombin Time / Inr (Pt) (11/18/17 18:35) Act Partial Throm Time (Ptt) (11/18/17 18:35) Iv Access Insert/Monitor (11/18/17 18:35) Ecg Monitoring (11/18/17 18:35) Oximetry (11/18/17 18:35) Sodium Chloride 0.9% Flush (Ns Flush) (11/18/17 18:45) Electrocardiogram (11/18/17 18:35) Ct Knee W/O Contrast (11/18/17 ) [employer] Request For Service (11/18/17 18:35) Consult Orthopedic (11/18/17 ) Splint Or Brace Apply/Monitor (11/18/17 18:35) Chest, Pa & Lat (11/18/17 18:35) Admit Order (Ed Use Only) (11/18/17 19:17) MDM Medical Decision Making Medical Screen Exam Complete: Yes Emergency Medical Condition: Yes Interpretation(s) EKG reviewed by Dr. Taveras's notes some new T-wave changes with ventricular rate of 91. No STEMI. Cardiac enzymes added. Differential Diagnosis Fracture, sprain, contusion, joint effusion, dislocation Narrative Course Patient was seen and examined. Initial radiological studies were ordered. X- ray shows a tibial plateau fracture. Discussed patient with orthopedic who recommends admitting the patient for surgical intervention. Discussed patient with Dr. Michaud, who is in agreement plan of care and disposition. Discussed all findings with plan of care with patient and her family, who is agreeable for admission. All questions were answered. Patient was placed in ice cuff and splint by the fuel technician. Preop orders were placed. Discussed patient with residents, who were agreeable to admit the patient. Patient remained stable throughout ED course. Physician Communication Physician Communication [address] Hawley, orthopedic on-call, who recommends getting a CT of the knee, n.p.o. after midnight, ice cuff, splint, and admitted to medicine for likely surgical intervention tomorrow. 1920 discussed patient with family practice residents, who are agreeable to admit the patient for Dr. Duncan. 2104 Dr. Quick made aware of abnormal EKG findings. Diagnosis Primary Impression: Tibial plateau fracture, right Qualified Codes: S82.141A - Displaced bicondylar fracture of right tibia, initial encounter for closed fracture Admitting Information Admitting Physician Requests: Admit Condition: Stable Ivan Madden Nov 18, 2017 17:01
[2017-11-18] MEDS ORDERED: IBUPROFEN 800 MG TAB PO ONE (17:15)
--- NOTE | 2017-11-18 18:12 | RADRPT ---
EXAM DATE/TIME: 11/18/2017 17:46 [facility] COMPARISON: No previous studies available for comparison. INDICATIONS : Knee pain. MEDICAL HISTORY : Sickle Cell disease. SURGICAL HISTORY : Tubal ligation. ENCOUNTER: Initial ACUITY: 1 day PAIN SCORE: 9/10 LOCATION: Right knee, inferior FINDINGS: There is a comminuted fracture of the lateral tibial plateau with lateral downsloping. No perceptible abrupt step offs. There is a large lipohemarthrosis. No other fractures are demonstrated. No subluxa tions. CONCLUSION: Depressed/downsloping lateral tibial plateau fracture with a large joint effusion. Suhail Alberto MD on November 18, 2017 at 18:09 Board Certified Radiologist. This report was verified electronically.
[2017-11-18] MEDS ORDERED: SODIUM CHLORIDE 0.9% FLUSH 10 ML FLUSH IV FLUSH PRN ×2 (18:45→20:30)
--- NOTE | 2017-11-18 19:09 | RADRPT ---
EXAM DATE/TIME: 11/18/2017 18:49 [facility] COMPARISON: No previous studies available for comparison. INDICATIONS : Evaluate for pneumonia, pneumothorax, or communicable disease. Pre-op right knee. MEDICAL HISTORY : Sickle Cell disease. SURGICAL HISTORY : Tubal ligation. ENCOUNTER: Initial ACUITY: 1 day PAIN SCORE: 0/10 LOCATION: Bilateral chest FINDINGS: PA and lateral views of the chest demonstrate the lungs to be symmetrically aerated without evidence of mass, infiltrate or effusion. The cardiomediastinal contours are unremarkable. Osseous structure s are intact. CONCLUSION: No acute cardiopulmonary disease demonstrated. Suhail Alberto MD on November 18, 2017 at 19:07 Board Certified Radiologist. This report was verified electronically.
--- NOTE | 2017-11-18 19:25 | RADRPT ---
EXAM DATE/TIME: 11/18/2017 19:00 [facility] COMPARISON: KNEE RIGHT COMPLETE (4VWS), November 18, 2017, 17:46. INDICATIONS : Trauma, fall. Abnormal knee radiograph. RADIATION DOSE: 7.29 CTDIvol (mGy) MEDICAL HISTORY : None SURGICAL HISTORY : None. ENCOUNTER: Initial ACUITY: 1 day PAIN SCALE: 8/10 LOCATION: Right knee TECHNIQUE: Volumetric scanning of the knee was performed. Using automated exposure control and adjustment of th e mA and/or kV according to patient size, radiation dose was kept as low as reasonably achievable to obtain optimal diagnostic quality images. DICOM format image data is available electronically for re view and comparison. FINDINGS: Acute lateral tibial plateau fracture with up to 8.5 mm of depression noted. Most of the depression i nvolves the central to lateral weightbearing surface. The depression is fairly smooth/gradual without focal areas of abrupt step-off seen. No intra-articular osteochondral bodies. Other bones are intact. Large lipohemarthrosis. CONCLUSION: Depressed lateral tibial plateau fracture as above. Suhail Alberto MD on November 18, 2017 at 19:21 Board Certified Radiologist. This report was verified electronically.
[2017-11-18 19:52] LABS: INTERNATIONAL NORMALIZED RATIO 1.1 RATIO; PROTHROMBIN TIME - PATIENT 10.8 SEC (9.8-11.6)
--- NOTE | 2017-11-18 19:54 | HHI.HP ---
[facility] Service Family Medicine Primary Care Physician Richard Lewis MD Admission Diagnosis Right tibial plateau fracture Diagnoses: International Travel<30 Days: No Contact w/Intl Traveler<30days: No Known Affected Area: No History of Present Illness Ms. Hassan is a 52-year-old female presenting after a fall with right lower extremity pain. She is accompanied by her mother and sister and assists with history as the patient is developmentally disabled. Per their report, patient was walking to the bus after leaving the [employer] late this afternoon when she fell to the ground. Patient states she felt immediate 10/10 pain in the right knee. She states that she was able to ambulate immediately after, however was unable to "after a while" due to the pain. The patient was put on the bus by bystander's and was dropped off at her house. She was then transported by vehicle to the ED for further evaluation. Before leaving for the ED, her mother noted that her right knee was swelling, however was not "extremely swollen." Otherwise currently she has no complaints and denies any fevers, chills, shortness of breath, chest pain, NVD, abdominal pain, or calf tenderness. Review of Systems Constitutional: DENIES: Fever, Chills Eyes: DENIES: Blurred vision, Eye pain Ears, nose, mouth, throat: DENIES: Nasal discharge, Throat pain Respiratory: DENIES: Cough, Shortness of breath Cardiovascular: DENIES: Chest pain, Palpitations Gastrointestinal: DENIES: Abdominal pain, Diarrhea, Nausea, Vomiting Genitourinary: DENIES: Dysuria Musculoskeletal: COMPLAINS OF: Joint pain, Muscle aches, Joint Swelling Integumentary: DENIES: Rash Hematologic/lymphatic: DENIES: Lymphadenopathy Immunologic/allergic: DENIES: Urticaria Neurologic: DENIES: Headache Psychiatric: DENIES: Mood changes Past Family Social History Past Medical History Followed by Dr. Kelly (hematology) for sickle cell, Dr. Lopes with Neurology PMH: Developmental Delay sickle cell anemia - last transfusion 3 weeks ago, transfusion 2x a year seizure--2013--on Keppra 500 BID - last seizure >1 year ago Past Surgical History Cholecystectomy Allergies: Coded Allergies: erythromycin base (Unverified Allergy, Severe, 11/18/17) Uncoded Allergies: MYCINS (Allergy, Severe, EDEMA, 09/26/13) Family History Mother - DM, HTN, TIA Father - Siblings - DM Social History No t/e/d. Pt lives with mother who cares for her. Pt works at [employer] daily. Health Maintenance: reported menopause age 48, off Depo declined pelvic Had colonoscopy at 48 yo was wnl per patient mother, next one in 10 years Mammogram December 2016, wnl Flu shot August 2015 Physical Exam Vital Signs Vital Signs Date Time Temp Pulse Resp B/P (MAP) Pulse Ox O2 Delivery O2 Flow Rate FiO2 11/18/17 16:15 99.4 100 15 139/64 (89) 99 Physical Exam GENERAL: Well-nourished, well-developed female lying in bed in no acute distress. Mother and [id number] at bedside SKIN: Warm and dry. No rash. Capillary refill greater than 2 seconds. HEENT: Atraumatic, normocephalic with extraocular motions intact. PERRLA. Oropharynx clear without erythema or exudate. No rhinorrhea. No palpable thyroid abnormality, lymphadenopathy, or JVD appreciated. CARDIOVASCULAR: Tachycardic rate with regular rhythm. No obvious murmurs, gallops, or rubs. 2+ pulses in all four extremities. RESPIRATORY: Clear to auscultation bilaterally with no crackles, wheezes, or rhonchi. No increased work of breathing. GASTROINTESTINAL: Abdomen soft, non-tender, nondistended with positive bowel sounds. No masses appreciated. MUSCULOSKELETAL: No cyanosis or edema. No calf tenderness. Right lower extremity: Right lower extremity currently wrapped in Stefan bandage in immobile brace with hydro-ice running. Sensation intact above and below Stefan wrap. Patient able to lift leg, move foot at the ankle, and move all 5 digits. Sensation intact throughout the lower extremity. 2+ DP and PT pulses appreciated. No visible hemorrhage on Stefan bandage. NEURO/PSYCH: Afocal. Awake, alert, and oriented x3. Patient with limited participation in history due to mental delay. Able to answer yes/no questions. Laboratory Laboratory Tests Test 11/18/17 19:30 Imaging Last 72 hours Impressions Chest X-Ray 11/18/17 1835 Signed Impressions: Service Date/Time: November 18:49 - CONCLUSION: No acute cardiopulmonary disease demonstrated. Suhail Alberto MD Lower Extremity CT 11/18/17 0000 Signed Impressions: Service Date/Time: November 19:00 - CONCLUSION: Depressed lateral tibial plateau fracture as above. Suhail Alberto MD Knee X-Ray 11/18/17 0000 Signed Impressions: Service Date/Time: November 17:46 - CONCLUSION: Depressed/downsloping lateral tibial plateau fracture with a large joint effusion. MD Steven Wells VTE Risk Assessment Caprini VTE Risk Assessment: Mod/High Risk (score >= 2) Caprini Risk Assessment Model Point Value = 1 Point Value = 2 Point Value = 3 Point Value = 5 Age 41-60 Minor surgery BMI > 25 kg/m2 Swollen legs Varicose veins or History of unexplained or recurrent spontaneous Oral contraceptives or hormone replacement Sepsis (< 1 month) Serious lung disease, including pneumonia (< 1 month) Abnormal pulmonary function Acute myocardial infarction Congestive heart failure (< 1 month) History of inflammatory bowel disease Medical patient at bed rest Age 61-74 Arthroscopic surgery Major open surgery (> 45 min) Laparoscopic surgery (> 45 min) Malignancy Confined to bed (> 72 hours) Immobilizing plaster cast Central venous access Age >= 75 History of VTE Family history of VTE Factor V Leiden Prothrombin [id number] Lupus anticoagulant Anticardiolipin antibodies Elevated serum homocysteine Heparin-induced thrombocytopenia Other congenital or acquired thrombophilia Stroke (< 1 month) Elective arthroplasty Hip, pelvis, or leg fracture Acute spinal cord injury (< 1 month) Prophylaxis Regimen Total Risk Factor Score Risk Level Prophylaxis Regimen 0-1 Low Early ambulation 2 Moderate Order ONE of the following: *Sequential Compression Device (SCD) *Heparin 5000 units SQ BID 3-4 Higher Order ONE of the following medications: *Heparin 5000 units SQ TID *Enoxaparin/Lovenox 40 mg SQ daily (WT < 150 kg, CrCl > 30 mL/min) *Enoxaparin/Lovenox 30 mg SQ daily (WT < 150 kg, CrCl > 10-29 mL/min) *Enoxaparin/Lovenox 30 mg SQ BID (WT < 150 kg, CrCl > 30 mL/min) AND/OR *Sequential Compression Device (SCD) 5 or more Highest Order ONE of the following medications: *Heparin 5000 units SQ TID (Preferred with Epidurals) *Enoxaparin/Lovenox 40 mg SQ daily (WT < 150 kg, CrCl > 30 mL/min) *Enoxaparin/Lovenox 30 mg SQ daily (WT < 150 kg, CrCl > 10-29 mL/min) *Enoxaparin/Lovenox 30 mg SQ BID (WT < 150 kg, CrCl > 30 mL/min) AND *Sequential Compression Device (SCD) Assessment and Plan Assessment and Plan Ms. Hassan is a 52-year-old female presenting after a fall with right lower extremity pain found to have right depressed lateral tibial plateau fracture. Code Status Full code Discussed Condition With SANDIE Garcia Problem List: (1) Tibial plateau fracture, right ICD Codes: S82.141A - Displaced bicondylar fracture of right tibia, initial encounter for closed fracture Status: Acute Plan: -Knee x-ray: Right depressed/downsloping lateral tibial plateau fracture with large joint effusion. -Right knee CT: Acute lateral tibial plateau fracture with up to 8.5 mm of depression noted. Most of the depression involves the central to lateral weightbearing surface. Depression is fairly smooth/gradual without focal areas of abrupt step-off seen. No intra-articular osteochondral bodies. -Chest x-ray: Negative for acute process -Neuro checks every 4 hours with vital signs to evaluate for possible developing compartment syndrome -Incentive spirometry -Orthopedic surgery consulted -ED staff contacted Dr. Juan Jose Hawley who notified any staff he plans for operative fixation tomorrow -Right lower extremity to be put in an immobilizer with ice, ordered Medications: -Morphine as needed for pain -Constipation protocol in place -Ibuprofen given once in ED (2) Inverted T wave ICD Codes: R94.31 - Abnormal electrocardiogram [ECG] [EKG] Status: Acute Plan: -EKG: Sinus tachycardia with a heart rate of 91 bpm. Occasional PVC. Normal intervals. Left ventricular hypertrophy per voltage. Inverted T waves in lateral leads V5 and V6 new from prior EKG. Continue to trend 2 -Cardiac telemetry -Troponin: Less than 0.02, trend 2 -CK: 70, trend 2 -Defer aspirin therapy at this time as patient is preoperative and denies any cardiac symptoms (3) Sickle cell disease ICD Codes: D57.1 - Sickle-cell disease without crisis Status: Acute Plan: -CBC: H/H 6.4/17.2 (Near patient's baseline per chart review) -Due large lipohemarthrosis on imaging with tachycardia and need of surgical fixation, plan to transfuse 2 units PRBC with additional units on hold -Repeat H/H after second unit of PRBC Medications: -2 units packed red blood cells -Tylenol and Benadryl ordered as needed -Patient to receive Lasix between units to avoid volume overload -Continue home hydroxyzine (4) Seizure disorder ICD Codes: G40.909 - Seizure disorder Status: Acute Plan: Medications: -Continue Keppra (5) Hypertension ICD Codes: I10 - Essential (primary) hypertension Status: Acute Plan: -Continue home lisinopril -Clonidine when necessary for blood pressure greater than 180/110 (6) Nutrition, metabolism, and development symptoms ICD Codes: R63.8 - Symptoms concerning nutrition, metabolism, and development Status: Acute Plan: -Fluids: Normal saline at 90 mL per hour (hold during blood transfusion) -Diet: Nothing by mouth except for medications at midnight for surgical procedure -Electrolytes: Elevated AST, alkaline phosphatase, and total bilirubin (patient' s baseline likely related to sickle cell anemia); continue to monitor -Prophylaxis: Albuterol when necessary for shortness of breath, constipation protocol in place, morphine when necessary for pain, Zofran when necessary for nausea/vomiting, clonidine when necessary for blood pressure greater than 180/ 110 (7) DVT prophylaxis Status: Acute Plan: -Defer pharmacologic DVT prophylaxis for surgical procedure -SCD to nonoperative leg Physician Certification 2 Midnight Certification Type: Admission for Inpatient Services Order for Inpatient Services The services are ordered in accordance with Medicare regulations or non- Medicare payer requirements, as applicable. In the case of services not specified as inpatient-only, they are appropriately provided as inpatient services in accordance with the 2-midnight benchmark. Estimated LOS (days): 3 3 days is the estimated time the patient will need to remain in the hospital, assuming treatment plan goals are met and no additional complications. Post-Hospital Plan: Home Problem Qualifiers (1) Tibial plateau fracture, right: Qualified Codes: S82.141A - Displaced bicondylar fracture of right tibia, initial encounter for closed fracture (2) Sickle cell disease: Qualified Codes: D57.1 - Sickle-cell disease without crisis (3) Hypertension: Qualified Codes: I10 - Essential (primary) hypertension Ghanshyam Quick MD R2 Nov 18, 2017 19:54
[2017-11-18 20:18] LABS: ALT (GPT) 26 U/L (10-53)
[2017-11-18 20:20] LABS: ALKALINE PHOSPHATASE 149 U/L (45-117); TOTAL BILIRUBIN ADULT 2.7 MG/DL (0.2-1.0); TOTAL PROTEIN 7.7 GM/DL (6.4-8.2)
[2017-11-18] MEDS: levETIRAcetam 500 MG TAB PO SCH (20:21)
[2017-11-18] MEDS: HYDROXYUREA 500 MG CAP PO SCH (20:21)
[2017-11-18 20:23] LABS: AUTOMATED NEUTROPHIL # 8.6 TH/MM3 (1.8-7.7); BASOPHIL # 0.1 TH/MM3 (0-0.2); BASOPHIL % 0.6 % (0.0-2.0); EOSINOPHIL % 0.2 % (0.0-4.0); LYMPH % 7.2 % (9.0-44.0); LYMPHOCYTE # 0.7 TH/MM3 (1.0-4.8); MEAN CELL VOLUME 94.9 FL (80.0-100.0); MEAN CORPUSCULAR HEMOGLOBIN 35.6 PG (27.0-34.0); MEAN PLATELET VOLUME 8.2 FL (7.0-11.0); MONO % 6.5 % (0.0-8.0); MONOCYTE # 0.7 TH/MM3 (0-0.9); NEUT % 85.5 % (16.0-70.0); PLATELET COUNT 241 TH/MM3 (150-450); RED BLOOD COUNT 1.81 MIL/MM3 (4.00-5.30); RED CELL DISTRIBUTION WIDTH 24.5 % (11.6-17.2); WHITE BLOOD COUNT 10.1 TH/MM3 (4.0-11.0)
[2017-11-18] MEDS ORDERED: MORPHINE SULFATE 2 MG/ML INJ IV PUSH PRN (20:30)
[2017-11-18] MEDS ORDERED: NALOXONE HCL 0.4 MG/ML AMP IV PUSH PRN ×2 (20:30)
[2017-11-18] MEDS ORDERED: diphenhydrAMINE HCL 25 MG CAP PO PRN ×2 (20:30→22:00)
[2017-11-18] MEDS ORDERED: diphenhydrAMINE HCL 50 MG/ML VIAL IV PUSH PRN (20:30)
[2017-11-18] MEDS ORDERED: ONDANSETRON HCL 4 MG/2 ML VIAL IV PUSH PRN (20:30)
[2017-11-18] MEDS ORDERED: BISACODYL 10 MG SUPP RECTAL PRN (20:30)
[2017-11-18] MEDS ORDERED: MAGNESIUM HYDROXIDE SUSP 30 ML CUP PO PRN (20:30)
[2017-11-18] MEDS ORDERED: LACTULOSE SYRUP 20 GM/30 ML CUP PO PRN (20:30)
[2017-11-18] MEDS ORDERED: SENNOSIDES 8.6 MG TAB PO PRN (20:30)
[2017-11-18] MEDS ORDERED: ACETAMINOPHEN 325 MG TAB PO PRN ×2 (20:30→22:00)
[2017-11-18 20:34] LABS: MEAN CORPUSCULAR HGB CONC 37.5 % (32.0-36.0)
[2017-11-18 20:36] LABS: HEMOGLOBIN 6.4 GM/DL (11.6-15.3)
[2017-11-18 20:37] LABS: AST (GOT) 69 U/L (15-37); BICARBONATE 21.8 MEQ/L (21.0-32.0); BLOOD UREA NITROGEN 15 MG/DL (7-18); CALCIUM 8.8 MG/DL (8.5-10.1); CHLORIDE 106 MEQ/L (98-107); CREATININE 0.69 MG/DL (0.50-1.00); GLOMERULAR FILTRATION RATE 107 ML/MIN (>89); GLUCOSE,RANDOM 116 MG/DL (74-106); HEMATOCRIT 17.2 % (35.0-46.0); SODIUM (NA) 137 MEQ/L (136-145)
[2017-11-18 20:54] LABS: BASOPHILS 1 % (0-2); CORRECTED NUCLEATED RBC 7 /100 WBC (0-0); LYMPHOCYTES 6 % (9-44); MONOCYTES 6 % (0-8); NEUTROPHIL # MANUAL DIFF 8.8 TH/MM3 (1.8-7.7); NUCLEATED RED BLOOD CELL 7 (0-0); POLYS (SEG NEUTROPHILS) 87 % (16-70)
[2017-11-18 20:55] LABS: POLYCHROMASIA 2.4 % (0.0-1.9); SICKLE CELLS 3+ (NORMAL)
[2017-11-18] MEDS: DOCUSATE SODIUM 50 MG/SENNA 8.6 MG TAB PO SCH ×2 (21:00→23:37)
[2017-11-18] MEDS: SODIUM CHLORIDE 0.9% FLUSH 10 ML FLUSH IV FLUSH SCH (21:15)
[2017-11-18 21:19] LABS: TROPONIN I LESS THAN 0.02 NG/ML (0.02-0.05)
[2017-11-18] MEDS ORDERED: SODIUM CHLOR 0.9% 250 ML INJ 250 ML IV ONE (22:00)
[2017-11-18] MEDS ORDERED: SODIUM CHLOR 0.9% 1000 ML INJ 1,000 ML IV SCH (22:00)
[2017-11-18] MEDS ORDERED: RESP: ALBUTEROL 2.5 MG/3 ML NEB (PRN) INH (22:30)
[2017-11-19] VITALS (15 sets, daily range): BP systolic 113–156; BP diastolic 53–75; PULSE 54–95; RESP 17–20; TEMP 96.7–98.6; O2SAT 94–98
[2017-11-19] MEDS ORDERED: SODIUM CHLOR 0.9% 1000 ML INJ 1,000 ML IV SCH
[2017-11-19] MEDS ORDERED: FUROSEMIDE 20 MG/2 ML VIAL IV PUSH ONE (00:45)
[2017-11-19] MEDS ORDERED: cloNIDine HCL 0.1 MG TAB PO PRN (01:45)
[2017-11-19 07:34] LABS: BICARBONATE 26.7 MEQ/L (21.0-32.0); CALCIUM 8.3 MG/DL (8.5-10.1); CREATININE 0.63 MG/DL (0.50-1.00)
[2017-11-19 07:44] LABS: AUTOMATED NEUTROPHIL # 4.6 TH/MM3 (1.8-7.7); BASOPHIL % 0.5 % (0.0-2.0); EOSINOPHIL # 0.1 TH/MM3 (0-0.4); EOSINOPHIL % 1.8 % (0.0-4.0); HEMATOCRIT 23.7 % (35.0-46.0); HEMOGLOBIN 8.8 GM/DL (11.6-15.3); LYMPH % 12.8 % (9.0-44.0); LYMPHOCYTE # 0.8 TH/MM3 (1.0-4.8); MEAN CELL VOLUME 91.1 FL (80.0-100.0); MEAN CORPUSCULAR HEMOGLOBIN 34.1 PG (27.0-34.0); MEAN CORPUSCULAR HGB CONC 37.4 % (32.0-36.0); MEAN PLATELET VOLUME 7.7 FL (7.0-11.0); MONO % 9.7 % (0.0-8.0); MONOCYTE # 0.6 TH/MM3 (0-0.9); NEUT % 75.2 % (16.0-70.0); PLATELET COUNT 248 TH/MM3 (150-450); RED CELL DISTRIBUTION WIDTH 19.6 % (11.6-17.2); WHITE BLOOD COUNT 6.1 TH/MM3 (4.0-11.0)
--- NOTE | 2017-11-19 07:58 | PD.CONS ---
[facility] Service Orthopedic Surgeons Consult Requested By Carine Gonzalez M.D. Reason for Consult Fracture of the right lateral tibial plateau Primary Care Physician Fatuma Fuller , Richard Lyn MD Admission Diagnosis Right tibial plateau fracture Diagnoses: Chief Complaint: Right knee pain and difficulty with ambulation History of Present Illness This patient is a 52-year-old female. She works at a [employer]. After leaving work and on her way to the bus she slipped and fell. She had difficulty with ambulation. She was helped under the bus by bystanders. When she got home, she was unable to ambulate significantly. She is brought by private vehicle to [facility]. X-rays and CT shows evidence of a depressed lateral tibial plateau fracture. I have been asked to see her in consultation regarding the same Review of Systems Constitutional: DENIES: Diaphoretic episodes, Fatigue, Fever, Weight gain, Weight loss, Chills, Dizziness, Change in appetite, Night Sweats Endocrine: DENIES: Abnorml menstrual pattern, Heat/cold intolerance, Polydipsia , Polyuria, Polyphagia Eyes: DENIES: Blurred vision, Diplopia, Eye inflammation, Eye pain, Vision loss , Photosensitivity, Double Vision Ears, nose, mouth, throat: DENIES: Tinnitus, Hearing loss, Vertigo, Nasal discharge, Oral lesions, Throat pain, Hoarseness, Ear Pain, Running Nose, Epistaxis, Sinus Pain, Toothache, Odynophagia Respiratory: DENIES: Apneas, Cough, Snoring, Wheezing, Hemoptysis, Sputum production, Shortness of breath Cardiovascular: DENIES: Chest pain, Palpitations, Syncope, Dyspnea on Exertion , PND, Lower Extremity Edema, Orthopnea, Claudication Gastrointestinal: DENIES: Abdominal pain, Black stools, Bloody stools, Constipation, Diarrhea, Nausea, Vomiting, Difficulty Swallowing, Anorexia Genitourinary: DENIES: Abnormal vaginal bleeding, Dysmenorrhea, Dyspareunia, Sexual dysfunction, Urinary frequency, Urinary incontinence, Urgency, Hematuria , Dysuria, Nocturia, Vaginal discharge Musculoskeletal: COMPLAINS OF: Joint pain Integumentary: DENIES: Abnormal pigmentation, Pruritus, Rash, Nail changes, Breast masses, Breast skin changes, Nipple discharge Hematologic/lymphatic: DENIES: Bruising, Lymphadenopathy (history of sickle cell) Immunologic/allergic: DENIES: Eczema, Urticaria Neurologic: DENIES: Abnormal gait, Headache, Localized weakness, Paresthesias, Seizures, Speech Problems, Tremor, Poor Balance Psychiatric: DENIES: Anxiety, Confusion, Mood changes, Depression, Hallucinations, Agitation, Suicidal Ideation, Homicidal Ideation, Delusions Past Family Social History Past Medical History Sickle cell anemia. Developmental delay Allergies: Coded Allergies: erythromycin base (Unverified Allergy, Severe, 11/18/17) Uncoded Allergies: MYCINS (Allergy, Severe, EDEMA, 09/26/13) Active Ordered Medications Current Medications Medications (Trade) Dose Ordered Sig/Zuri Route Start Time Stop Time Status Last Admin (Keppra) 500 mg BID PO 11/18/17 21:00 (Prinivil) 10 mg DAILY PO 11/19/17 09:00 (Hydrea) 500 mg DAILY PO 11/18/17 20:00 11/18/17 20:21 (NS Flush) 2 ml UNSCH PRN IV FLUSH 11/18/17 20:30 (NS Flush) 2 ml BID IV FLUSH 11/18/17 21:00 11/18/17 21:15 (Zofran Inj) 4 mg Q6H PRN IV PUSH 11/18/17 20:30 (Tylenol) 650 mg Q4H PRN PO 11/18/17 20:30 (Benadryl Inj) 25 mg Q4H PRN IV PUSH 11/18/17 20:30 (Benadryl) 25 mg Q4H PRN PO 11/18/17 20:30 (Morphine Inj) 1 mg Q3H PRN IV PUSH 11/18/17 20:30 (Morphine Inj) 3 mg Q3H PRN IV PUSH 11/18/17 20:30 (Morphine Inj) 2 mg Q3H PRN IV PUSH 11/18/17 20:30 (Narcan Inj) 0.4 mg UNSCH PRN IV PUSH 11/18/17 20:30 (Pilar-Colace) 1 tab BID PO 11/18/17 21:00 11/18/17 23:37 (Milk Of Magnesia Liq) 30 ml Q12H PRN PO 11/18/17 20:30 (Senokot) 17.2 mg Q12H PRN PO 11/18/17 20:30 (Dulcolax Supp) 10 mg DAILY PRN RECTAL 11/18/17 20:30 (Lactulose Liq) 30 ml DAILY PRN PO 11/18/17 20:30 Sodium Chloride 1,000 ml @ 90 mls/hr Q11H7M IV 11/18/17 22:00 Future Hold 11/18/17 22:40 Sodium Chloride 250 ml @ 15 mls/hr ONCE ONCE IV 11/18/17 22:00 11/19/17 14:39 11/18/17 22:40 (Tylenol) 650 mg Q4H PRN PO 11/18/17 22:00 (Benadryl) 25 mg Q4H PRN PO 11/18/17 22:00 (Albuterol Neb) 2.5 mg Q2HR NEB PRN INH 11/18/17 22:30 (Catapres) 0.1 mg Q6H PRN PO 11/19/17 01:45 Reported Meds & Active Scripts Active Lisinopril 10 Mg Tab 10 Mg PO DAILY Reported Furosemide 20 Mg Tab 20 Mg PO DAILY Potassium Chloride ER (Potassium Chloride) 20 Meq Tab 20 Meq PO DAILY Tramadol (Tramadol HCl) 50 Mg Tab 50 Mg PO Q4H PRN Hydrea (Hydroxyurea) 500 Mg Cap 500 Mg PO DAILY Keppra (Levetiracetam) 500 Mg Tab 500 Mg PO BID Physical Exam Vital Signs Vital Signs Date Time Temp Pulse Resp B/P (MAP) Pulse Ox O2 Delivery O2 Flow Rate FiO2 11/19/17 04:00 98.0 77 18 146/65 (92) 98 11/19/17 04:00 98.0 77 18 146/65 98 11/19/17 04:00 87 11/19/17 02:24 78 19 128/61 94 11/19/17 02:23 78 18 128/61 (83) 94 11/19/17 02:10 98.5 75 19 156/75 96 11/19/17 01:53 98.0 85 19 133/59 94 11/19/17 01:06 98.4 78 19 128/58 96 11/19/17 00:54 98.4 78 18 113/53 (73) 94 11/18/17 16:15 99.4 100 15 139/64 (89) 99 Physical Exam Small stature female. Her mother is at the bedside. HEENT: Normocephalic atraumatic pupils equal round reactive. NECK: Supple. No abnormal masses. Full range of motion. CHEST: Clear to auscultation with no rales or rhonchi's or wheezes. HEART: Regular rate and rhythm. No murmurs. ABDOMEN: Soft, nontender, no masses. Normal active bowel sounds. GENITOURINARY: Deferred. MUSCULOSKELETAL: The right leg is in a long-leg splint. Mild swelling. No obvious deformity. She wiggles her toes. Sensation normal. Dorsalis pedis 2+ Laboratory Laboratory Tests Test 11/18/17 19:30 11/19/17 06:41 White Blood Count 10.1 6.1 Red Blood Count 1.81 2.60 Hemoglobin 6.4 8.8 Hematocrit 17.2 23.7 Mean Corpuscular Volume 94.9 91.1 Mean Corpuscular Hemoglobin 35.6 34.1 Mean Corpuscular Hemoglobin Concent 37.5 37.4 Red Cell Distribution Width 24.5 19.6 Platelet Count 241 248 Mean Platelet Volume 8.2 7.7 Neutrophils (%) (Auto) 85.5 75.2 Lymphocytes (%) (Auto) 7.2 12.8 Monocytes (%) (Auto) 6.5 9.7 Eosinophils (%) (Auto) 0.2 1.8 Basophils (%) (Auto) 0.6 0.5 Neutrophils # (Auto) 8.6 4.6 Lymphocytes # (Auto) 0.7 0.8 Monocytes # (Auto) 0.7 0.6 Eosinophils # (Auto) 0.0 0.1 Basophils # (Auto) 0.1 0.0 CBC Comment AUTO DIFF AUTO DIFF Differential Total Cells Counted 100 Neutrophils % (Manual) 87 Lymphocytes % 6 Monocytes % 6 Basophils % 1 Neutrophils # (Manual) 8.8 Nucleated Red Blood Cells 7 Differential Comment FINAL DIFF MANUAL Platelet Estimate NORMAL Platelet Morphology Comment NORMAL Polychromasia 2.4 Sickle Cells 3+ Prothrombin Time 10.8 Prothromb Time International Ratio 1.1 Activated Partial Thromboplast Time 24.0 Blood Urea Nitrogen 15 12 Creatinine 0.69 0.63 Random Glucose 116 93 Total Protein 7.7 Albumin 4.0 Calcium Level 8.8 8.3 Alkaline Phosphatase 149 Aspartate Amino Transf (AST/SGOT) 69 Alanine Aminotransferase (ALT/SGPT) 26 Total Bilirubin 2.7 Sodium Level 137 144 Potassium Level 4.2 4.2 Chloride Level 106 110 Carbon Dioxide Level 21.8 26.7 Anion Gap 9 7 Estimat Glomerular Filtration Rate 107 119 Total Creatine Kinase 70 57 Troponin I LESS THAN 0.02 Hematology Comments Result Diagram: 11/19/17 0641 11/19/17 0641 Imaging X-rays and CT reviewed and review of the radiologist interpretation shows a displaced and depressed right lateral tibial plateau fracture. Moderate osteopenia is suspect Assessment & Plan Assessment and Plan Depressed right lateral tibial plateau fracture. Osteopenia/osteoporosis. History of sickle cell anemia. Developmental delay. PLAN: Surgery: Open treatment internal fixation right lateral tibial plateau fracture with bone grafting. Consent: There are risks with surgery including infection, bleeding, loss of motion, need for further surgery, neurologic or vascular injury. The patient is a increased risk because for sickle cell disease. She and the family understand these issues and wished to proceed forward with surgery as outlined above. Surgery today if arrangements can be made Juan Jose Fregoso MD Nov 19, 2017 07:58
[2017-11-19 08:29] LABS: CORRECTED NUCLEATED RBC 16 /100 WBC (0-0); LYMPHOCYTES 5 % (9-44); MONOCYTES 10 % (0-8); NEUTROPHIL # MANUAL DIFF 4.9 TH/MM3 (1.8-7.7); NUCLEATED RED BLOOD CELL 16 (0-0); POLYS (SEG NEUTROPHILS) 81 % (16-70)
[2017-11-19 08:30] LABS: HOWELL-JOLLY BODIES PRESENT (NONE SEEN)
[2017-11-19 08:31] LABS: TARGET CELLS 1+ (NORMAL)
[2017-11-19 08:32] LABS: POLYCHROMASIA 2.4 % (0.0-1.9); SICKLE CELLS 2+ (NORMAL)
[2017-11-19] MEDS: MORPHINE SULFATE 2 MG/ML INJ IV PUSH PRN ×2 (08:48→09:52)
[2017-11-19] MEDS: LISINOPRIL 10 MG TAB PO SCH ×2 (09:00→09:52)
[2017-11-19] MEDS: HYDROXYUREA 500 MG CAP PO SCH (09:00)
[2017-11-19] MEDS: SODIUM CHLORIDE 0.9% FLUSH 10 ML FLUSH IV FLUSH SCH ×2 (09:00→21:15)
--- NOTE | 2017-11-19 09:19 | HHI.HP ---
[facility] Service Family Medicine Primary Care Physician Richard Lewis MD Admission Diagnosis Right tibial plateau fracture Diagnoses: (1) Tibial plateau fracture, right Diagnosis: Principal (2) Sickle cell disease Diagnosis: Principal (3) Hypertension Diagnosis: Principal (4) Inverted T wave Diagnosis: Principal (5) Seizure disorder Diagnosis: Principal (6) Nutrition, metabolism, and development symptoms Diagnosis: Principal (7) DVT prophylaxis Diagnosis: Principal International Travel<30 Days: No Contact w/Intl Traveler<30days: No Known Affected Area: No History of Present Illness Ms. Hassan is a 52-year-old female presenting after a fall with right lower extremity pain. She is accompanied by her mother who assists with history as the patient is developmentally disabled. Per her report, patient was walking to the bus after leaving the [employer] late in the afternoon when she fell to the ground. Patient states she felt immediate 10/10 pain in the right knee. She states that she was able to ambulate immediately after, however was unable to "after a while" due to the pain. The patient was put on the bus by bystander's and was dropped off at her house. She was then transported by vehicle to the ED for further evaluation. Before leaving for the ED, her mother noted that her right knee was swelling, however was not "extremely swollen." Otherwise currently she has no complaints and denies any fevers, chills, shortness of breath, chest pain, NVD, abdominal pain, or calf tenderness. Ms Hassan was found to be anemic which is her norm with sickle cell and was transfused as she has surgery planned for today for her tibial plateau fracture. She has some pain today but otherwise is doing well. Review of Systems Other Constitutional: DENIES: Fever, Chills Eyes: DENIES: Blurred vision, Eye pain Ears, nose, mouth, throat: DENIES: Nasal discharge, Throat pain Respiratory: DENIES: Cough, Shortness of breath Cardiovascular: DENIES: Chest pain, Palpitations Gastrointestinal: DENIES: Abdominal pain, Diarrhea, Nausea, Vomiting Genitourinary: DENIES: Dysuria Musculoskeletal: COMPLAINS OF: Joint pain, Muscle aches, Joint Swelling Integumentary: DENIES: Rash Hematologic/lymphatic: DENIES: Lymphadenopathy Immunologic/allergic: DENIES: Urticaria Neurologic: DENIES: Headache Psychiatric: DENIES: Mood changes Past Family Social History Past Medical History Followed by Dr. Kelly (hematology) for sickle cell, Dr. Lopes with Neurology PMH: Developmental Delay sickle cell anemia - last transfusion 3 weeks ago, transfusion 2x a year seizure--2013--on Keppra 500 BID - last seizure >1 year ago Past Surgical History Cholecystectomy Allergies: Coded Allergies: erythromycin base (Unverified Allergy, Severe, 11/18/17) Uncoded Allergies: MYCINS (Allergy, Severe, EDEMA, 09/26/13) Family History Mother - DM, HTN, TIA Father - Siblings - DM Social History No t/e/d. Pt lives with mother who cares for her. Pt works at [employer] daily. Health Maintenance: reported menopause age 48, off Depo declined pelvic Had colonoscopy at 48 yo was wnl per patient mother, next one in 10 years Mammogram December 2016, wnl Flu shot August 2015 Physical Exam Vital Signs Vital Signs Date Time Temp Pulse Resp B/P (MAP) Pulse Ox O2 Delivery O2 Flow Rate FiO2 11/19/17 08:00 98.1 75 19 126/60 (82) 95 11/19/17 04:00 98.0 77 18 146/65 (92) 98 11/19/17 04:00 98.0 77 18 146/65 98 11/19/17 04:00 87 11/19/17 02:24 78 19 128/61 94 11/19/17 02:23 78 18 128/61 (83) 94 11/19/17 02:10 98.5 75 19 156/75 96 11/19/17 01:53 98.0 85 19 133/59 94 11/19/17 01:06 98.4 78 19 128/58 96 11/19/17 00:54 98.4 78 18 113/53 (73) 94 11/18/17 16:15 99.4 100 15 139/64 (89) 99 Physical Exam GENERAL: thin pleasant female lying in bed in no acute distress. Mother at bedside SKIN: Warm and dry. No rash. Capillary refill greater than 2 seconds. HEENT: Atraumatic, normocephalic with extraocular motions intact. PERRLA. Oropharynx clear without erythema or exudate. No rhinorrhea. No palpable thyroid abnormality, lymphadenopathy, or JVD appreciated. throat exam done per admission team CARDIOVASCULAR: Tachycardic rate with regular rhythm. 2/6 murmur. no gallops, or rubs. 2+ pulses in all four extremities. RESPIRATORY: Clear to auscultation bilaterally with no crackles, wheezes, or rhonchi. No increased work of breathing. GASTROINTESTINAL: Abdomen soft, non-tender, nondistended with positive bowel sounds. No masses appreciated. MUSCULOSKELETAL: No cyanosis or edema. No calf tenderness. Right lower extremity: Right lower extremity currently wrapped in Stefan bandage in immobile brace with hydro-ice running. Sensation intact above and below Stefan wrap. Patient able to lift leg, move foot at the ankle, and move all 5 digits. Sensation intact throughout the lower extremity. 2+ DP and PT pulses appreciated. No visible hemorrhage on Stefan bandage. NEURO/PSYCH: Afocal. Awake, alert, and oriented x3. Patient with limited participation in history due to mental delay. Able to answer yes/no questions. Laboratory Laboratory Tests Test 11/18/17 19:30 11/19/17 06:41 White Blood Count 10.1 6.1 Red Blood Count 1.81 2.60 Hemoglobin 6.4 8.8 Hematocrit 17.2 23.7 Mean Corpuscular Volume 94.9 91.1 Mean Corpuscular Hemoglobin 35.6 34.1 Mean Corpuscular Hemoglobin Concent 37.5 37.4 Red Cell Distribution Width 24.5 19.6 Platelet Count 241 248 Mean Platelet Volume 8.2 7.7 Neutrophils (%) (Auto) 85.5 75.2 Lymphocytes (%) (Auto) 7.2 12.8 Monocytes (%) (Auto) 6.5 9.7 Eosinophils (%) (Auto) 0.2 1.8 Basophils (%) (Auto) 0.6 0.5 Neutrophils # (Auto) 8.6 4.6 Lymphocytes # (Auto) 0.7 0.8 Monocytes # (Auto) 0.7 0.6 Eosinophils # (Auto) 0.0 0.1 Basophils # (Auto) 0.1 0.0 CBC Comment AUTO DIFF AUTO DIFF Differential Total Cells Counted 100 100 Neutrophils % (Manual) 87 81 Lymphocytes % 6 5 Monocytes % 6 10 Basophils % 1 Neutrophils # (Manual) 8.8 4.9 Nucleated Red Blood Cells 7 16 Differential Comment FINAL DIFF MANUAL FINAL DIFF MANUAL Platelet Estimate NORMAL NORMAL Platelet Morphology Comment NORMAL NORMAL Polychromasia 2.4 2.4 Sickle Cells 3+ 2+ Prothrombin Time 10.8 Prothromb Time International Ratio 1.1 Activated Partial Thromboplast Time 24.0 Blood Urea Nitrogen 15 12 Creatinine 0.69 0.63 Random Glucose 116 93 Total Protein 7.7 Albumin 4.0 Calcium Level 8.8 8.3 Alkaline Phosphatase 149 Aspartate Amino Transf (AST/SGOT) 69 Alanine Aminotransferase (ALT/SGPT) 26 Total Bilirubin 2.7 Sodium Level 137 144 Potassium Level 4.2 4.2 Chloride Level 106 110 Carbon Dioxide Level 21.8 26.7 Anion Gap 9 7 Estimat Glomerular Filtration Rate 107 119 Total Creatine Kinase 70 57 Troponin I LESS THAN 0.02 Eosinophils % 4 Target Cells 1+ Mahmood-Viborg Bodies PRESENT Hematology Comments Result Diagram: 11/19/17 0641 11/19/17 0641 Imaging Last 72 hours Impressions Chest X-Ray 11/18/17 1835 Signed Impressions: Service Date/Time: November 18:49 - CONCLUSION: No acute cardiopulmonary disease demonstrated. Suhail Alberto MD Lower Extremity CT 11/18/17 0000 Signed Impressions: Service Date/Time: November 19:00 - CONCLUSION: Depressed lateral tibial plateau fracture as above. Suhail Alberto MD Knee X-Ray 11/18/17 0000 Signed Impressions: Service Date/Time: November 17:46 - CONCLUSION: Depressed/downsloping lateral tibial plateau fracture with a large joint effusion. MD Steven Wells VTE Risk Assessment Caprini VTE Risk Assessment: Mod/High Risk (score >= 2) Caprini Risk Assessment Model Point Value = 1 Point Value = 2 Point Value = 3 Point Value = 5 Age 41-60 Minor surgery BMI > 25 kg/m2 Swollen legs Varicose veins or History of unexplained or recurrent spontaneous Oral contraceptives or hormone replacement Sepsis (< 1 month) Serious lung disease, including pneumonia (< 1 month) Abnormal pulmonary function Acute myocardial infarction Congestive heart failure (< 1 month) History of inflammatory bowel disease Medical patient at bed rest Age 61-74 Arthroscopic surgery Major open surgery (> 45 min) Laparoscopic surgery (> 45 min) Malignancy Confined to bed (> 72 hours) Immobilizing plaster cast Central venous access Age >= 75 History of VTE Family history of VTE Factor V Leiden Prothrombin [id number] Lupus anticoagulant Anticardiolipin antibodies Elevated serum homocysteine Heparin-induced thrombocytopenia Other congenital or acquired thrombophilia Stroke (< 1 month) Elective arthroplasty Hip, pelvis, or leg fracture Acute spinal cord injury (< 1 month) Prophylaxis Regimen Total Risk Factor Score Risk Level Prophylaxis Regimen 0-1 Low Early ambulation 2 Moderate Order ONE of the following: *Sequential Compression Device (SCD) *Heparin 5000 units SQ BID 3-4 Higher Order ONE of the following medications: *Heparin 5000 units SQ TID *Enoxaparin/Lovenox 40 mg SQ daily (WT < 150 kg, CrCl > 30 mL/min) *Enoxaparin/Lovenox 30 mg SQ daily (WT < 150 kg, CrCl > 10-29 mL/min) *Enoxaparin/Lovenox 30 mg SQ BID (WT < 150 kg, CrCl > 30 mL/min) AND/OR *Sequential Compression Device (SCD) 5 or more Highest Order ONE of the following medications: *Heparin 5000 units SQ TID (Preferred with Epidurals) *Enoxaparin/Lovenox 40 mg SQ daily (WT < 150 kg, CrCl > 30 mL/min) *Enoxaparin/Lovenox 30 mg SQ daily (WT < 150 kg, CrCl > 10-29 mL/min) *Enoxaparin/Lovenox 30 mg SQ BID (WT < 150 kg, CrCl > 30 mL/min) AND *Sequential Compression Device (SCD) Assessment and Plan Assessment and Plan Ms. Hassan is a 52-year-old female presenting after a fall with right lower extremity pain found to have right depressed lateral tibial plateau fracture. Problem List: (1) Tibial plateau fracture, right ICD Codes: S82.141A - Displaced bicondylar fracture of right tibia, initial encounter for closed fracture Status: Acute Plan: -Knee x-ray: Right depressed/downsloping lateral tibial plateau fracture with large joint effusion. -Right knee CT: Acute lateral tibial plateau fracture with up to 8.5 mm of depression noted. Most of the depression involves the central to lateral weightbearing surface. Depression is fairly smooth/gradual without focal areas of abrupt step-off seen. No intra-articular osteochondral bodies. -Chest x-ray: Negative for acute process -Neuro checks every 4 hours with vital signs to evaluate for possible developing compartment syndrome -Incentive spirometry -Orthopedic surgery consulted -ED staff contacted Dr. Juan Jose Hawley who notified any staff he plans for operative fixation tomorrow -Right lower extremity to be put in an immobilizer with ice, ordered Medications: -Morphine as needed for pain -Constipation protocol in place -Ibuprofen given once in ED (2) Inverted T wave ICD Codes: R94.31 - Abnormal electrocardiogram [ECG] [EKG] Status: Acute Plan: -EKG: Sinus tachycardia with a heart rate of 91 bpm. Occasional PVC. Normal intervals. Left ventricular hypertrophy per voltage. Inverted T waves in lateral leads V5 and V6 new from prior EKG. Continue to trend 2 -Cardiac telemetry -Troponin: Less than 0.02, trend 2 -CK: 70, trend 2 -Defer aspirin therapy at this time as patient is preoperative and denies any cardiac symptoms (3) Sickle cell disease ICD Codes: D57.1 - Sickle-cell disease without crisis Status: Acute Plan: -CBC: H/H 6.4/17.2 (Near patient's baseline per chart review) -Due large lipohemarthrosis on imaging with tachycardia and need of surgical fixation, plan to transfuse 2 units PRBC with additional units on hold -Repeat H/H after second unit of PRBC Medications: -2 units packed red blood cells -Tylenol and Benadryl ordered as needed -Patient to receive Lasix between units to avoid volume overload -Continue home hydroxyzine (4) Seizure disorder ICD Codes: G40.909 - Seizure disorder Status: Acute Plan: Medications: -Continue Keppra will be sure she gets a dose of keppra prior to surgery as she has a history of seizures (5) Hypertension ICD Codes: I10 - Essential (primary) hypertension Status: Acute Plan: -Continue home lisinopril -Clonidine when necessary for blood pressure greater than 180/110 (6) Nutrition, metabolism, and development symptoms ICD Codes: R63.8 - Symptoms concerning nutrition, metabolism, and development Status: Acute Plan: -Fluids: Normal saline at 90 mL per hour (hold during blood transfusion) -Diet: Nothing by mouth except for medications at midnight for surgical procedure -Electrolytes: Elevated AST, alkaline phosphatase, and total bilirubin (patient' s baseline likely related to sickle cell anemia); continue to monitor -Prophylaxis: Albuterol when necessary for shortness of breath, constipation protocol in place, morphine when necessary for pain, Zofran when necessary for nausea/vomiting, clonidine when necessary for blood pressure greater than 180/ 110 (7) DVT prophylaxis Status: Acute Plan: -Defer pharmacologic DVT prophylaxis for surgical procedure -SCD to nonoperative leg Problem Qualifiers (1) Tibial plateau fracture, right: Qualified Codes: S82.141A - Displaced bicondylar fracture of right tibia, initial encounter for closed fracture (2) Sickle cell disease: Qualified Codes: D57.1 - Sickle-cell disease without crisis (3) Hypertension: Qualified Codes: I10 - Essential (primary) hypertension Carine Gonzalez MD Nov 19, 2017 09:19
[2017-11-19] MEDS ORDERED: levETIRAcetam 500 MG TAB PO ONE (09:30)
[2017-11-19] MEDS: levETIRAcetam 500 MG TAB PO SCH ×2 (09:52→21:16)
[2017-11-19] MEDS ORDERED: DEXAMETHASONE SOD PHOS 4 MG/ML VIAL IV ONE (12:00)
[2017-11-19] MEDS ORDERED: LACTATED RINGER'S 1000 ML INJ 2,000 ML IV ONE (12:00)
[2017-11-19] MEDS ORDERED: ONDANSETRON HCL 4 MG/2 ML VIAL IV ONE (12:00)
[2017-11-19] MEDS ORDERED: PROPOFOL 200 MG/20 ML AMP IV ONE (12:00)
[2017-11-19] MEDS ORDERED: LIDOCAINE HCL 1% PF 5 ML SYRINGE OTHER ONE (12:00)
[2017-11-19] MEDS ORDERED: CHLORHEXIDINE GLUCONATE 2 % 1 PACK (2 CLOTHS) TOPICAL PRN (13:15)
[2017-11-19] MEDS ORDERED: LACTATED RINGER'S 1000 ML IV PRN (13:15)
[2017-11-19] MEDS ORDERED: POVIDONE IODINE 5% (ANTISEPSIS KIT) 4 APPLICATIONS EACH NARE PRN (13:15)
[2017-11-19] MEDS ORDERED: METOPROLOL TARTRATE 25 MG TAB PO PRN (13:15)
[2017-11-19] MEDS ORDERED: SODIUM CHLORID 0.9% 500 ML IV PRN (13:15)
[2017-11-19] MEDS ORDERED: GENTAMICIN SULFATE 80 MG/2 ML VIAL ONE (14:13)
--- NOTE | 2017-11-19 14:21 | EKG ---
Date Performed: 11/18/2017 Time Performed: 20:21:14 PTAGE: 52 years EKG: Sinus rhythm WITH OCCASIONAL SUPRAVENTRICULAR PREMATURE COMPLEXES LEFT VENTRICULAR HYPERTROPHY AND ST-T CHANGE AB NORMAL ECG PREVIOUS TRACING : 03/17/[address]-T changes more prominent since prior. Cannot rule out is chemia. DOCTOR: Andreas Valentine Interpretating Date/Time 11/19/2017 14:19:51
[2017-11-19] MEDS ORDERED: ceFAZolin 2 GM PREMIX 50 ML ONE (14:42)
[2017-11-19] MEDS ORDERED: ACETAMINOPHEN 1000 MG/100 ML 100 ML IV ONE (16:39)
[2017-11-19] MEDS ORDERED: HYDROmorphone HCL PF 2 MG/ML VIAL ONE ×2 (16:39→19:09)
[2017-11-19] MEDS ORDERED: diphenhydrAMINE HCL 25 MG CAP PO PRN (18:00)
[2017-11-19] MEDS ORDERED: ASPIRIN EC 81 MG TABEC PO ONE (18:00)
[2017-11-19] MEDS ORDERED: MAGNESIUM HYDROXIDE SUSP 30 ML CUP PO PRN (18:00)
[2017-11-19] MEDS ORDERED: MORPHINE SULFATE 8 MG/ML INJ IV PUSH PRN (18:00)
[2017-11-19] MEDS ORDERED: ONDANSETRON HCL 4 MG/2 ML VIAL IVP PRN (18:00)
[2017-11-19] MEDS ORDERED: Post-op Orders (for Pharmacy) XX ONE (18:00)
[2017-11-19] MEDS ORDERED: DO NOT ADM ANY ANTICOAGULANT DRUGS PRN (18:08)
--- NOTE | 2017-11-19 18:14 | PD.OP ---
cc: Juan Jose Fregoso MD Operative Report Date of Surgery: Nov 19, 2017 Preoperative Diagnosis: Fracture right proximal tibia, lateral plateau Postoperative Diagnosis: Same. Tear of the lateral meniscus, peripheral attachment Procedure: Open treatment internal fixation right lateral tibial plateau with plates and screws and bone graft. Open repair lateral meniscus, right knee Anesthesia: Gen. Surgeon: Juan Jose Fregoso Supervisor Smoke Control(s): KSENIA Quick Operation and Findings: EBL: 50 cc INDICATION: Patient is a 82-year-old female who fell yesterday sustaining a depressed lateral tibial plateau fracture of her right knee. She was out to be candidate for operative management. Company: [employer] NOTE: Nneka Quick PA-C was present for the entire surgical procedure as my first breaker feeder. In my medical opinion her skill and care was necessary for the proper management of this patient. PROCEDURE: The patient brought to the operating room and anesthetized in the supine position. The right leg was visualized under fluoroscopy. Antibiotics were given within an one hour time window and a timeout was done. After exsanguination, the tourniquet was inflated to 250 mmHg. An anterior and lateral incision was made extending across the knee joint. The anterior fascia was taken down. This was lifted off the proximal tibia. The joint was inspected. There was a tear along the rim of the lateral meniscus. There was a depressed area of the lateral tibial plateau extending posteriorly. A proper length plate was fitted and applied. This was held provisionally. An osteotome was used to create a window in the proximal tibia. Impactors were used to bring the fracture into reduced position and hold this with several pins. Allograft bone graft was utilized and placed into this defect. Multiple proximal locking screws were placed through the plate using standard technique. Locking screws were placed distally. The rest bone graft was finished and impacted. Intraoperative x-rays were obtained showing satisfactory alignment position and stabilization. The wound was irrigated copiously with antibiotic irrigation. Multiple #2 FiberWire sutures were placed in the remnant of the meniscus which was then brought down and tied to the plate using standard technique. The fascia was brought over the top of the plate and repaired with interrupted #1 Vicryl sutures The wound was irrigated copiously and hemostasis was controlled. Subcutaneous tissue was approximated with interrupted 2-0 Vicryl suture and skin with metallic leatha. A knee immobilizer was fitted and applied. The patient was awakened and taken to recovery room satisfactory condition. The sponge count and needle count and sponge counts were all correct FINDINGS: There was evidence of a depressed lateral tibial plateau fracture that was depressed over 1.2 cm. The final reduction was very satisfactory. The articular surface was smooth. There was a tear of the lateral meniscus which was also repaired. Juan Jose Fregoso MD Nov 19, 2017 18:14
[2017-11-19] MEDS ORDERED: HYDR-3583 PO (18:15)
[2017-11-19] MEDS ORDERED: ECASA81 PO (18:15)
[2017-11-19] MEDS ORDERED: *morphine SULFATE 4 MG/ML PERIprocedure ONLY ONE ×2 (18:24→19:00)
[2017-11-19] MEDS: LACTATED RINGER'S 1000 ML INJ 1,000 ML IV SCH (18:38)
[2017-11-19] MEDS: CALCIUM/VITAMIN D 250 MG/125 U TAB PO SCH (21:15)
[2017-11-19] MEDS: DOCUSATE SODIUM 50 MG/SENNA 8.6 MG TAB PO SCH (21:16)
[2017-11-19] MEDS: ACETAMINOPHEN/HYDROcodone 325 MG/10 MG TAB PO PRN (21:17)
[2017-11-19 21:22] LABS: HEMATOCRIT 23.6 % (35.0-46.0); HEMOGLOBIN 8.6 GM/DL (11.6-15.3)
--- NOTE | 2017-11-19 21:28 | RADRPT ---
EXAM DATE/TIME: 11/19/2017 16:33 [facility] COMPARISON: CT KNEE RIGHT W/O CONTRAST, November 18, 2017, 19:00. INDICATIONS : Fracture- ORIF. MEDICAL HISTORY : None. SURGICAL HISTORY : None. ENCOUNTER: Initial ACUITY: 1 day PAIN SCORE: Non-responsive. LOCATION: Right Tibia. FINDINGS: Interim open reduction internal fixation of lateral tibial plateau fracture. Fixation consists of a l ateral plate and multiple screws. Alignment is near-anatomic. No new fracture. No subluxation. No loo se fragments are seen. CONCLUSION: Screw and plate fixation of the lateral tibial plateau fracture. Normal alignment. No acute complicat ion demonstrated. Suhail Alberto MD on November 19, 2017 at 21:25 Board Certified Radiologist. This report was verified electronically.
[2017-11-20] VITALS (8 sets, daily range): BP systolic 117–148; BP diastolic 59–68; PULSE 71–109; RESP 18–20; TEMP 96.4–99.9; O2SAT 94–98
[2017-11-20] MEDS: ASPIRIN EC 81 MG TABEC PO SCH ×3 (00:24→19:24)
[2017-11-20] MEDS: MORPHINE SULFATE 4 MG/ML INJ IV PUSH PRN ×2 (00:28→19:24)
[2017-11-20 03:50] LABS: AUTOMATED NEUTROPHIL # 5.2 TH/MM3 (1.8-7.7); BASOPHIL % 0.4 % (0.0-2.0); EOSINOPHIL % 0.1 % (0.0-4.0); HEMATOCRIT 22.1 % (35.0-46.0); HEMOGLOBIN 8.1 GM/DL (11.6-15.3); LYMPH % 6.8 % (9.0-44.0); LYMPHOCYTE # 0.4 TH/MM3 (1.0-4.8); MEAN CELL VOLUME 91.5 FL (80.0-100.0); MEAN CORPUSCULAR HEMOGLOBIN 33.6 PG (27.0-34.0); MEAN PLATELET VOLUME 7.4 FL (7.0-11.0); MONOCYTE # 0.8 TH/MM3 (0-0.9); NEUT % 79.7 % (16.0-70.0); PLATELET COUNT 228 TH/MM3 (150-450); RED BLOOD COUNT 2.42 MIL/MM3 (4.00-5.30); RED CELL DISTRIBUTION WIDTH 21.3 % (11.6-17.2); WHITE BLOOD COUNT 6.5 TH/MM3 (4.0-11.0)
[2017-11-20 03:51] LABS: MEAN CORPUSCULAR HGB CONC 36.7 % (32.0-36.0)
[2017-11-20] MEDS: LACTATED RINGER'S 1000 ML INJ 1,000 ML IV SCH ×3 (03:52→19:25)
[2017-11-20 04:19] LABS: BANDS 3 % (0-6); BICARBONATE 27.2 MEQ/L (21.0-32.0); BLOOD UREA NITROGEN 12 MG/DL (7-18); CHLORIDE 105 MEQ/L (98-107); CORRECTED NUCLEATED RBC 7 /100 WBC (0-0); CREATININE 0.59 MG/DL (0.50-1.00); GLOMERULAR FILTRATION RATE 129 ML/MIN (>89); GLUCOSE,RANDOM 126 MG/DL (74-106); LYMPHOCYTES 13 % (9-44); MONOCYTES 10 % (0-8); NUCLEATED RED BLOOD CELL 7 (0-0); POLYS (SEG NEUTROPHILS) 74 % (16-70); SODIUM (NA) 139 MEQ/L (136-145); TROPONIN I LESS THAN 0.02 NG/ML (0.02-0.05)
[2017-11-20 04:21] LABS: HOWELL-JOLLY BODIES PRESENT (NONE SEEN); SICKLE CELLS 1+ (NORMAL); TOXIC VACUOLATION PRESENT (NONE SEEN)
[2017-11-20 04:23] LABS: SPHEROCYTES OCC (NORMAL); TARGET CELLS 1+ (NORMAL)
[2017-11-20] MEDS: CALCIUM/VITAMIN D 250 MG/125 U TAB PO SCH ×3 (08:32→16:49)
[2017-11-20] MEDS: MULTIVITAMINS/MINERALS THERAPEUTIC TAB PO SCH (08:32)
[2017-11-20] MEDS: levETIRAcetam 500 MG TAB PO SCH ×2 (08:33→19:24)
[2017-11-20] MEDS: LISINOPRIL 10 MG TAB PO SCH (08:33)
[2017-11-20] MEDS: ACETAMINOPHEN/HYDROcodone 325 MG/10 MG TAB PO PRN ×3 (08:34→23:34)
[2017-11-20] MEDS: HYDROXYUREA 500 MG CAP PO SCH (08:42)
[2017-11-20] MEDS: SODIUM CHLORIDE 0.9% FLUSH 10 ML FLUSH IV FLUSH SCH ×2 (09:00→19:25)
[2017-11-20] MEDS: DOCUSATE SODIUM 50 MG/SENNA 8.6 MG TAB PO SCH ×2 (09:00→19:23)
--- NOTE | 2017-11-20 09:20 | PD.ORT.PN ---
Subjective Subjective Remarks Appears moderately painful. Mother at bedside. No focused complaints Objective Vitals Vital Signs Date Time Temp Pulse Resp B/P (MAP) Pulse Ox O2 Delivery O2 Flow Rate FiO2 11/20/17 08:00 96.4 77 19 148/68 (94) 98 11/20/17 04:39 96.8 71 19 131/65 (87) 97 11/20/17 00:15 80 11/19/17 23:55 54 11/19/17 22:55 97.3 59 20 130/66 (87) 94 11/19/17 21:35 78 11/19/17 21:13 95 11/19/17 19:45 96.7 54 17 147/69 (95) 98 11/19/17 19:25 74 14 95 Nasal Cannula 2 11/19/17 19:15 98.7 80 16 148/65 (92) 96 Nasal Cannula 2 11/19/17 19:00 74 14 161/70 (100) 96 Nasal Cannula 2 11/19/17 18:45 62 15 140/67 (91) 99 Nasal Cannula 2 11/19/17 18:30 65 14 143/53 (83) 98 Nasal Cannula 2 11/19/17 18:15 63 20 156/70 (98) 100 Nasal Cannula 3 11/19/17 18:08 99.1 64 15 171/74 (106) 100 Simple Mask 8 11/19/17 12:24 98.6 73 18 137/62 (87) 98 11/19/17 12:00 74 I/O 11/19/17 11/19/17 11/19/17 11/20/17 11/20/17 11/20/17 07:00 15:00 23:00 07:00 15:00 23:00 Intake Total 400 ml 1580 ml 1558 ml Output Total 1200 ml 20 ml Balance -800 ml 1560 ml 1558 ml Intake Oral 480 ml 480 ml IV Total 1078 ml Packed Cells 400 ml Other 1100 ml Output Urine Total 1200 ml Estimated Blood Loss 20 ml # Voids 1 3 # Bowel Movements 0 0 0 Result Diagram: 11/20/1733611/20/17336 Objective Remarks Dressing dry. And knee immobilizer. No abnormal swelling. No calf tenderness. Negative Homans sign. Motor and sensation normal Assessment & Plan Assessment and Plan Depressed right lateral tibial plateau fracture. Osteopenia/osteoporosis. History of sickle cell anemia. Developmental delay. SURGERY: ORIF lateral tibial plateau with bone grafting and lateral plate: POD # 1 PLAN: Knee immobilizer full-time except during physical therapy. Full range of motion in PT Nonweightbearing. No dressing change. [place] for pain control. Aspirin 81 mg twice a day. Probable discharge to SNF Juan Jose Fregoso MD Nov 20, 2017 09:20
--- NOTE | 2017-11-20 09:24 | HHI.FPPN ---
Subjective Remarks Ms Hassan complains of pain in her operative leg. Otherwise she feels well. No complaints per her mother at all except some nausea with pain meds. She was just medicated prior to our entering room. Objective Vitals Vital Signs Date Time Temp Pulse Resp B/P (MAP) Pulse Ox O2 Delivery O2 Flow Rate FiO2 11/20/17 08:00 96.4 77 19 148/68 (94) 98 11/20/17 04:39 96.8 71 19 131/65 (87) 97 11/20/17 00:15 80 11/19/17 23:55 54 11/19/17 22:55 97.3 59 20 130/66 (87) 94 11/19/17 21:35 78 11/19/17 21:13 95 11/19/17 19:45 96.7 54 17 147/69 (95) 98 11/19/17 19:25 74 14 95 Nasal Cannula 2 11/19/17 19:15 98.7 80 16 148/65 (92) 96 Nasal Cannula 2 11/19/17 19:00 74 14 161/70 (100) 96 Nasal Cannula 2 11/19/17 18:45 62 15 140/67 (91) 99 Nasal Cannula 2 11/19/17 18:30 65 14 143/53 (83) 98 Nasal Cannula 2 11/19/17 18:15 63 20 156/70 (98) 100 Nasal Cannula 3 11/19/17 18:08 99.1 64 15 171/74 (106) 100 Simple Mask 8 11/19/17 12:24 98.6 73 18 137/62 (87) 98 11/19/17 12:00 74 I/O 11/19/17 11/19/17 11/19/17 11/20/17 11/20/17 11/20/17 07:00 15:00 23:00 07:00 15:00 23:00 Intake Total 400 ml 1580 ml 1558 ml Output Total 1200 ml 20 ml Balance -800 ml 1560 ml 1558 ml Intake Oral 480 ml 480 ml IV Total 1078 ml Packed Cells 400 ml Other 1100 ml Output Urine Total 1200 ml Estimated Blood Loss 20 ml # Voids 1 3 # Bowel Movements 0 0 0 Result Diagram: 11/20/17 03311/20/17336 Objective Remarks GENERAL: thin pleasant female lying in bed in no acute distress except some pain in her leg. Mother at bedside. SKIN: Warm and dry. No rash. Capillary refill greater than 2 seconds. HEENT: Atraumatic, normocephalic with extraocular motions intact. PERRLA. No rhinorrhea. No palpable thyroid abnormality, lymphadenopathy, or JVD appreciated. throat exam done per admission team CARDIOVASCULAR: Tachycardic rate with regular rhythm. 2/6 murmur. no gallops, or rubs. 2+ pulses in all four extremities. RESPIRATORY: Clear to auscultation bilaterally with no crackles, wheezes, or rhonchi. No increased work of breathing. GASTROINTESTINAL: Abdomen soft, non-tender, nondistended with positive bowel sounds. No masses appreciated. MUSCULOSKELETAL: No cyanosis or edema. No calf tenderness. Right lower extremity: Right lower extremity currently wrapped in Stefan bandage in immobile brace. Sensation intact above and wrap. Patient able to lift leg, move foot at the ankle, and move all 5 digits. Sensation intact throughout the lower extremity. 2+ DP and PT pulses appreciated. No visible hemorrhage on Stefan bandage. Exam done by Dr Lyn prior to surgery. difficult to examine now with very extensive bandaging. slight clubbing all fingers NEURO/PSYCH: Afocal. Awake, alert, and oriented x3. Patient with limited participation in history due to mental delay. Able to answer yes/no questions. Urinary Catheter: No Vascular Central Line Catheter: No A/P Assessment and Plan Ms. Hassan is a 52-year-old female presenting after a fall with right lower extremity pain found to have right depressed lateral tibial plateau fracture. S/ P surgery 11/19/17 Problem List: (1) Tibial plateau fracture, right ICD Codes: S82.141A - Displaced bicondylar fracture of right tibia, initial encounter for closed fracture Status: Acute Plan: -Knee x-ray: Right depressed/downsloping lateral tibial plateau fracture with large joint effusion. -Right knee CT: Acute lateral tibial plateau fracture with up to 8.5 mm of depression noted. Most of the depression involves the central to lateral weightbearing surface. Depression is fairly smooth/gradual without focal areas of abrupt step-off seen. No intra-articular osteochondral bodies. -Chest x-ray: Negative for acute process -Incentive spirometry -Orthopedic surgery consulted -Dr. Juan Jose Hawley performed operative fixation 11/19/17 Medications: -Morphine as needed for pain -Constipation protocol in place -Ibuprofen given once in ED (2) Inverted T wave ICD Codes: R94.31 - Abnormal electrocardiogram [ECG] [EKG] Status: Acute Plan: -EKG: Sinus tachycardia with a heart rate of 91 bpm. Occasional PVC. Normal intervals. Left ventricular hypertrophy per voltage. Inverted T waves in lateral leads V5 and V6 new from prior EKG. Continue to trend 2 -Cardiac telemetry -Troponin: Less than 0.02, trend 2 -CK: 70, trend 2 -Defer aspirin therapy at this time as patient is preoperative and denies any cardiac symptoms (3) Sickle cell disease ICD Codes: D57.1 - Sickle-cell disease without crisis Status: Acute Plan: -CBC: H/H 6.4/17.2 (Near patient's baseline per chart review) -Due large lipohemarthrosis on imaging with tachycardia and need of surgical fixation, plan to transfuse 2 units PRBC with additional units on hold -Repeated H/H after second unit of PRBC Medications: -2 units packed red blood cells -Tylenol and Benadryl ordered as needed -Patient to receive Lasix between units to avoid volume overload -Continue home hydroxyzine -stable H/H today (4) Seizure disorder ICD Codes: G40.909 - Seizure disorder Status: Acute Plan: Medications: -Continue Keppra will be sure she gets a dose of keppra prior to surgery as she has a history of seizures (5) Hypertension ICD Codes: I10 - Essential (primary) hypertension Status: Acute Plan: -Continue home lisinopril -Clonidine when necessary for blood pressure greater than 180/110 (6) DVT prophylaxis Status: Acute Plan: -Ortho pharmacologic DVT prophylaxis -SCD to nonoperative leg (7) Nutrition, metabolism, and development symptoms ICD Codes: R63.8 - Symptoms concerning nutrition, metabolism, and development Status: Acute Plan: -Fluids: Normal saline at 90 mL per hour (hold during blood transfusion) -Diet: Nothing by mouth except for medications at midnight for surgical procedure -Electrolytes: Elevated AST, alkaline phosphatase, and total bilirubin (patient' s baseline likely related to sickle cell anemia); continue to monitor -Prophylaxis: Albuterol when necessary for shortness of breath, constipation protocol in place, morphine when necessary for pain, Zofran when necessary for nausea/vomiting, clonidine when necessary for blood pressure greater than 180/ 110 Problem Qualifiers (1) Tibial plateau fracture, right: Qualified Codes: S82.141A - Displaced bicondylar fracture of right tibia, initial encounter for closed fracture (2) Sickle cell disease: Qualified Codes: D57.1 - Sickle-cell disease without crisis (3) Hypertension: Qualified Codes: I10 - Essential (primary) hypertension Carine Gonzalez MD Nov 20, 2017 09:24
[2017-11-21] VITALS (10 sets, daily range): BP systolic 119–158; BP diastolic 60–74; PULSE 87–145; RESP 16–19; TEMP 97.1–100.5; O2SAT 91–97
[2017-11-21] MEDS: LISINOPRIL 10 MG TAB PO SCH (08:11)
[2017-11-21] MEDS: levETIRAcetam 500 MG TAB PO SCH ×2 (08:11→20:20)
[2017-11-21] MEDS: CALCIUM/VITAMIN D 250 MG/125 U TAB PO SCH ×3 (08:11→16:37)
[2017-11-21] MEDS: MULTIVITAMINS/MINERALS THERAPEUTIC TAB PO SCH (08:11)
[2017-11-21] MEDS: ASPIRIN EC 81 MG TABEC PO SCH (08:11)
[2017-11-21] MEDS: ACETAMINOPHEN/HYDROcodone 325 MG/10 MG TAB PO PRN ×2 (08:15→20:20)
--- NOTE | 2017-11-21 08:38 | PD.ORT.PN ---
Subjective Subjective Remarks Appears much more comfortable. Mild pain Mother at bedside. No focused complaints Objective Vitals Vital Signs Date Time Temp Pulse Resp B/P (MAP) Pulse Ox O2 Delivery O2 Flow Rate FiO2 11/21/17 05:23 95 Room Air 11/21/17 04:00 94 11/21/17 04:00 99.2 94 18 145/73 (97) 95 11/21/17 00:00 99.6 87 16 143/67 (92) 95 11/20/17 23:52 109 11/20/17 20:08 101 11/20/17 20:00 99.9 97 18 119/63 (81) 97 11/20/17 19:19 97 Nasal Cannula 2.00 11/20/17 16:00 97.5 100 19 117/59 (78) 94 11/20/17 12:00 97.9 79 20 125/62 (83) 96 I/O 11/20/17 11/20/17 11/20/17 11/21/17 11/21/17 11/21/17 07:00 15:00 23:00 07:00 15:00 23:00 Intake Total 1558 ml 1280 ml Output Total 1850 ml Balance 1558 ml -1850 ml 1280 ml Intake Oral 480 ml 480 ml IV Total 1078 ml 800 ml Output Urine Total 1850 ml # Voids 3 3 8 # Bowel Movements 0 1 Result Diagram: 11/20/17 0337 11/20/17 0337 Objective Remarks Dressing dry. And knee immobilizer. No abnormal swelling. No calf tenderness. Negative Homans sign. Motor and sensation normal Assessment & Plan Assessment and Plan Depressed right lateral tibial plateau fracture. Osteopenia/osteoporosis. History of sickle cell anemia. Developmental delay. SURGERY: ORIF lateral tibial plateau with bone grafting and lateral plate: POD # 2 PLAN: Knee immobilizer full-time except during physical therapy. Full range of motion in PT Nonweightbearing. No dressing change. Bovina for pain control. Aspirin 81 mg twice a day. Discharge to SNF when medically clear, possibly today. Follow-up in 2 weeks Juan Jose Fregoso MD Nov 21, 2017 08:38
[2017-11-21] MEDS: DOCUSATE SODIUM 50 MG/SENNA 8.6 MG TAB PO SCH ×2 (09:00→20:20)
[2017-11-21] MEDS: HYDROXYUREA 500 MG CAP PO SCH (09:00)
[2017-11-21] MEDS: SODIUM CHLORIDE 0.9% FLUSH 10 ML FLUSH IV FLUSH SCH ×2 (09:00→20:21)
[2017-11-21 09:29] LABS: AUTOMATED NEUTROPHIL # 6.2 TH/MM3 (1.8-7.7); BASOPHIL # 0.1 TH/MM3 (0-0.2); BASOPHIL % 0.8 % (0.0-2.0); EOSINOPHIL # 0.1 TH/MM3 (0-0.4); EOSINOPHIL % 1.9 % (0.0-4.0); HEMATOCRIT 22.9 % (35.0-46.0); HEMOGLOBIN 8.2 GM/DL (11.6-15.3); LYMPH % 9.5 % (9.0-44.0); LYMPHOCYTE # 0.8 TH/MM3 (1.0-4.8); MEAN CELL VOLUME 93.8 FL (80.0-100.0); MEAN CORPUSCULAR HEMOGLOBIN 33.6 PG (27.0-34.0); MEAN CORPUSCULAR HGB CONC 35.9 % (32.0-36.0); MONOCYTE # 0.8 TH/MM3 (0-0.9); NEUT % 77.8 % (16.0-70.0); PLATELET COUNT 208 TH/MM3 (150-450); RED BLOOD COUNT 2.44 MIL/MM3 (4.00-5.30); RED CELL DISTRIBUTION WIDTH 22.5 % (11.6-17.2); WHITE BLOOD COUNT 7.9 TH/MM3 (4.0-11.0)
[2017-11-21] MEDS ORDERED: SODIUM CHLOR 0.9% 1000 ML INJ 1,000 ML IV ONE (10:15)
--- NOTE | 2017-11-21 10:21 | HHI.FPPN ---
Subjective Remarks Patient with elevated HR up to 140's this morning. She was also febrile up to 100.5 this morning. BP has remained stable. O2 saturation has been ranging 88- 91% on RA. Denies any chest pain, shortness of breath, headache, malaise, fatigue, nausea, vomiting, pain with respiration, or palpitations. She continues to have soreness in her right lower extremity postoperatively. She has not had any new swelling in her legs. She has been tolerating PO well and had three bowel movements overnight. Note, after nasal cannula was placed, patient started scratching at her nares and drawing blood. She states that the nasal cannula is uncomfortable. (Fatuma Lyn MD, R3) Objective Vitals Vital Signs Date Time Temp Pulse Resp B/P (MAP) Pulse Ox O2 Delivery O2 Flow Rate FiO2 11/21/17 08:00 100.5 100 19 144/74 (97) 91 11/21/17 05:23 95 Room Air 11/21/17 04:00 94 11/21/17 04:00 99.2 94 18 145/73 (97) 95 11/21/17 00:00 99.6 87 16 143/67 (92) 95 11/20/17 23:52 109 11/20/17 20:08 101 11/20/17 20:00 99.9 97 18 119/63 (81) 97 11/20/17 19:19 97 Nasal Cannula 2.00 11/20/17 16:00 97.5 100 19 117/59 (78) 94 11/20/17 12:00 97.9 79 20 125/62 (83) 96 I/O 11/20/17 11/20/17 11/20/17 11/21/17 11/21/17 11/21/17 07:00 15:00 23:00 07:00 15:00 23:00 Intake Total 1558 ml 1280 ml Output Total 1850 ml Balance 1558 ml -1850 ml 1280 ml Intake Oral 480 ml 480 ml IV Total 1078 ml 800 ml Output Urine Total 1850 ml # Voids 3 3 8 # Bowel Movements 0 1 (Fatuma Lyn MD, R3) Result Diagram: 11/21/17 0820 11/20/17 0337 Imaging Last Impressions Tibia/Fibula X-Ray 11/19/17 0000 Signed Impressions: Service Date/Time: Sunday, November 19, 2017 16:33 - CONCLUSION: Screw and plate fixation of the lateral tibial plateau fracture. Normal alignment. No acute complication demonstrated. Suhail Alberto MD Chest X-Ray 11/18/17 1835 Signed Impressions: Service Date/Time: November 18:49 - CONCLUSION: No acute cardiopulmonary disease demonstrated. Suhail Alberto MD Lower Extremity CT 11/18/17 0000 Signed Impressions: Service Date/Time: November 19:00 - CONCLUSION: Depressed lateral tibial plateau fracture as above. Suhail Alberto MD Knee X-Ray 11/18/17 0000 Signed Impressions: Service Date/Time: November 17:46 - CONCLUSION: Depressed/downsloping lateral tibial plateau fracture with a large joint effusion. Suhail Alberto MD Objective Remarks GENERAL: thin pleasant female lying in bed in no acute distress except some pain in her leg. Mother at bedside. Diaphoretic. SKIN: Warm and dry. No rash. Capillary refill greater than 2 seconds. HEENT: Atraumatic, normocephalic with extraocular motions intact. PERRLA. Right nare with small amount of bleeding. No palpable thyroid abnormality, lymphadenopathy, or JVD appreciated. throat exam done per admission team CARDIOVASCULAR: Tachycardic rate with regular rhythm. 2/6 murmur. no gallops, or rubs. 2+ pulses in all four extremities. RESPIRATORY: Clear to auscultation bilaterally with no crackles, wheezes, or rhonchi. No increased work of breathing. GASTROINTESTINAL: Abdomen soft, non-tender, nondistended with positive bowel sounds. No masses appreciated. MUSCULOSKELETAL: No cyanosis or edema. No calf tenderness. Right lower extremity: Right lower extremity currently wrapped in Stefan bandage in immobilizer brace. Sensation intact above and below wrap. Patient able to lift leg, move foot at the ankle, and move all 5 digits. Sensation intact throughout the lower extremity. 2+ DP and PT pulses appreciated. No visible hemorrhage on Stefan bandage. NEURO/PSYCH: Afocal. Awake, alert, and oriented x3. Patient with limited participation in history due to mental delay. Able to answer yes/no questions. (Fatuma Lyn MD, R3) A/P Assessment and Plan Ms. Hassan is a 52-year-old female who presented after a fall with right lower extremity pain found to have right depressed lateral tibial plateau fracture. S/ P surgery 11/19/17. Discharge Planning Anticipate discharge to SNF once medically cleared for discharge. Likely in 2- 3 days. (Fatuma Lyn MD, R3) Attending Attestation Patient seen and examined and agree with the documentation by the resident. At the time of my exam the patient is comfortable in bed and her vitals have stabilized. CTA showed no evidence of PE, but possible consolidation, EKG and labs were reasonable. On exam the patient is comfortable, no outward signs of pain or discomfort, heart is regular, lungs have some bibasilar crackles. No edema in the LE Will start her on antibiotics for probable hosp acquired pneumonia. Consider mild acute chest syndrome with her sickle cell but her clinical picture does not support that at this time. Will monitor closely. (Katheryn Henry MD) Problem List: (1) Tibial plateau fracture, right ICD Codes: S82.141A - Displaced bicondylar fracture of right tibia, initial encounter for closed fracture Status: Resolved Plan: -Knee x-ray: Right depressed/downsloping lateral tibial plateau fracture with large joint effusion. -Right knee CT: Acute lateral tibial plateau fracture with up to 8.5 mm of depression noted. Most of the depression involves the central to lateral weightbearing surface. Depression is fairly smooth/gradual without focal areas of abrupt step-off seen. No intra-articular osteochondral bodies. -Chest x-ray: Negative for acute process -Incentive spirometry -Orthopedic surgery consulted -Dr. Juan Jose Hawley performed Open treatment internal fixation right lateral tibial plateau with plates and screws and bone graft, open repair lateral meniscus 11/19/17 Medications: -Morphine as needed for pain -Constipation protocol in place -Aspirin 81mg PO BID (2) Tachycardia ICD Codes: R00.0 - Tachycardia, unspecified Status: Acute Plan: Tachycardia up to 140's with associated fever up to 100.5, decreased O2 saturation to 89% on RA. No clinical symptoms per patient. AM CBC stable, relatively unchanged from prior Stat EKG unchanged from previous EKG on admission Stat troponin/CK-MB pending Stat pulmonary CTA to r/o PE Stat bolus 1 L NS Supplemental O2 to maintain O2 saturation >94% (3) Inverted T wave ICD Codes: R94.31 - Abnormal electrocardiogram [ECG] [EKG] Status: Acute Plan: -Admission EKG: Sinus tachycardia with a heart rate of 91 bpm. Occasional PVC. Normal intervals. Left ventricular hypertrophy per voltage. Inverted T waves in lateral leads V5 and V6 new from prior EKG. Troponin x 3 wnl -Cardiac telemetry Sinus tachycardia this AM up to 140's, repeat EKG unchanged from EKG on admission See above for further evaluation (4) Sickle cell disease ICD Codes: D57.1 - Sickle-cell disease without crisis Status: Chronic Plan: -CBC: H/H 6.4/17.2 on admission- near baseline per chart review -Due large lipohemarthrosis on imaging with tachycardia and need of surgical fixation, patient transfused 2 units PRBC with additional units on hold H/H now stable at 8.2/22.9 Medications: -Tylenol and Benadryl ordered as needed -Continue home hydroxyurea (5) Seizure disorder ICD Codes: G40.909 - Seizure disorder Status: Acute Plan: Medications: -Continue Keppra (6) Hypertension ICD Codes: I10 - Essential (primary) hypertension Status: Acute Plan: -Continue home lisinopril -Clonidine when necessary for blood pressure greater than 180/110 (7) DVT prophylaxis Status: Acute Plan: -Ortho pharmacologic DVT prophylaxis with Aspirin 81mg PO BID -SCD to nonoperative leg (8) Nutrition, metabolism, and development symptoms ICD Codes: R63.8 - Symptoms concerning nutrition, metabolism, and development Status: Acute Plan: -Fluids: 1L NS bolus now -Diet: Regular diet -Electrolytes: wnl; continue to monitor -Prophylaxis: Albuterol when necessary for shortness of breath, constipation protocol in place, morphine when necessary for pain, Zofran when necessary for nausea/vomiting, clonidine when necessary for blood pressure greater than 180/ 110 (Fatuma Lyn MD, R3) Problem Qualifiers (1) Tibial plateau fracture, right: Qualified Codes: S82.141A - Displaced bicondylar fracture of right tibia, initial encounter for closed fracture (2) Sickle cell disease: Qualified Codes: D57.1 - Sickle-cell disease without crisis (3) Hypertension: Qualified Codes: I10 - Essential (primary) hypertension Fatuma Lyn MD, R3 Nov 21, 2017 10:21 Katheryn Henry MD Nov 21, 2017 13:47
[2017-11-21 10:40] LABS: CORRECTED NUCLEATED RBC 4 /100 WBC (0-0); LYMPHOCYTES 12 % (9-44); MONOCYTES 6 % (0-8); NEUTROPHIL # MANUAL DIFF 6.3 TH/MM3 (1.8-7.7); NUCLEATED RED BLOOD CELL 4 (0-0); POLYS (SEG NEUTROPHILS) 80 % (16-70)
[2017-11-21 10:41] LABS: HOWELL-JOLLY BODIES PRESENT (NONE SEEN); SICKLE CELLS 2+ (NORMAL)
[2017-11-21 10:42] LABS: KERATOCYTES OCC (NORMAL)
[2017-11-21] MEDS ORDERED: IOHEXOL 350 MG/ML 10 ML VIAL (for RAD DIAG) IVCONTRAST ONE (11:03)
--- NOTE | 2017-11-21 11:29 | RADRPT ---
EXAM DATE/TIME: 11/21/2017 10:56 [facility] COMPARISON: CHEST PA & LAT, November 18, 2017, 18:49. INDICATIONS : Shortness of breath. IV CONTRAST: 60 cc Omnipaque 350 (iohexol) IV RADIATION DOSE: 5.71 CTDIvol (mGy) MEDICAL HISTORY : Hypertension. Seizures. SURGICAL HISTORY : Cholecystectomy. Tubal ligation. ENCOUNTER: Initial ACUITY: 1 day PAIN SCALE: 0/10 LOCATION: Bilateral chest TECHNIQUE: Volumetric scanning of the chest was performed using a pulmonary embolism protocol MIP images were re constructed. Using automated exposure control and adjustment of the mA and/or kV according to patien t size, radiation dose was kept as low as reasonably achievable to obtain optimal diagnostic quality images. DICOM format image data is available electronically for review and comparison. Follow-up recommendations for detected pulmonary nodules are based at a minimum on nodule size and pa tient risk factors according to Fleischner Society Guidelines. FINDINGS: PULMONARY ARTERIES: No filling defects are seen in the pulmonary arteries through the segmental level. Pulmonary arteries are enlarged with rapid tapering bilaterally consistent with pulmonary hypertension. LUNGS: There is bilateral basilar airspace consolidation present. PLEURAE: There is no pleural thickening or pleural effusion. MEDIASTINUM: The heart size is significantly enlarged with enlargement of both the right and left ventricle. MUSCULOSKELETAL: Within normal limits for patient age. MISCELLANEOUS: The visualized upper abdominal organs demonstrate no acute abnormality. CONCLUSION: 1. No evidence of PE. 2. Findings are consistent with congestive heart failure and pulmonary hypertension. Bilateral basila r airspace consolidation.. Consuelo Presley MD on November 21, 2017 at 11:24 Board Certified Radiologist. This report was verified electronically.
[2017-11-21] MEDS ORDERED: AZITHROMYCIN 250 MG TAB PO SCH (12:30)
[2017-11-21] MEDS ORDERED: RESP: ALBUTEROL 2.5 MG/IPRATROPIUM 0.5 MG NEB (PRN) INH (12:30)
--- NOTE | 2017-11-21 12:54 | EKG ---
Date Performed: 11/21/2017 Time Performed: 10:03:36 PTAGE: 52 years EKG: Prominent precordial voltage Nonspecific ST-T changes Since previous tracing, no significan t change noted ABNORMAL ECG PREVIOUS TRACING : 11/18/2017 20.21 DOCTOR: Garland Vasquez Interpretating Date/Time 11/21/2017 12:52:20
[2017-11-21] MEDS ORDERED: cefTRIAXone INJ 1,000 MG in SODIUM CHLORIDE 0.9% INJ 100 ML IV SCH (13:00)
[2017-11-21 14:59] LABS: BICARBONATE 27.6 MEQ/L (21.0-32.0); CALCIUM 8.2 MG/DL (8.5-10.1); CREATININE 0.53 MG/DL (0.50-1.00)
[2017-11-21] MEDS: CEFEPIME INJ 2,000 MG in SODIUM CHLORIDE 0.9% INJ 100 ML IV SCH ×2 (15:00→20:21)
[2017-11-21 15:03] LABS: TROPONIN I 0.02 NG/ML (0.02-0.05)
[2017-11-21] MEDS: ENOXAPARIN SODIUM 40 MG/0.4 ML SYRINGE SQ SCH (15:38)
--- NOTE | 2017-11-21 16:35 | MB ---
cc: Garland Doan MD DATE OF CONSULT: 11/21/2017 REASON FOR CONSULTATION: Patient with sickle cell disease status post open internal fixation right lateral tibial plateau with plates, screws and bone graft and repair of lateral meniscus. PATIENT PROFILE: The patient is a 52-year-old female. She lives at home with her mother. She is mentally challenged. The patient has no children. She does not smoke and drink. She is unable to work. HISTORY OF PRESENT ILLNESS: The patient is a 52-year-old female who has a history of sickle cell disease. There is reference to the fact that she may have beta thalassemia as well, although I am not sure this is correct. She normally runs hemoglobins in the 6-7 range and does not require transfusions. She has a rare crisis. She takes hydroxyurea, currently the dose is 500 mg a day. She has a history of a seizure disorder and takes Keppra 500 mg 2 tablets twice a day and has not had a seizure for approximately a year. Her current hospitalization occurred after a fall on 11/18/2017. She injured her right knee and went to the [facility]. She had an x-ray of the knee showing a depressed down sloping lateral tibial plateau fracture with a large joint effusion. She also had a lower extremity CT scan showing a depressed lateral tibial plateau fracture. She underwent surgery by Dr. Juan Jose Hawley on 11/19/2017 consisting of open treatment internal fixation right lateral tibial plateau with plates, screws and bone graft. She also had an open repair of the lateral meniscus, right knee. On arrival, her hemoglobin was 6.4. She was transfused 2 units of packed cells on 11/19/2017. CURRENT LABORATORY STUDIES: Dated 11/21/2017: Hemoglobin 8.2, white count 7900 and platelets of 208,000. Differential was unremarkable except for 4 nucleated red cells. Electrolytes, BUN and creatinine are normal. The patient had a CT angiogram of the thorax on 11/21/2016 showing findings suggestive of congestive heart failure and pulmonary hypertension. In the bases of the lungs, there was basilar airspace consolidation. She had a temperature to 100.5. She is now on a regimen of aspirin for DVT prevention. She does not voice any complaints. She is a simple individual and sits there quietly. She is not moving the right leg and it is wrapped. PAST SURGICAL HISTORY: 1. Cholecystectomy. 2. Tubal ligation. 3. Current surgery for repair of right lateral tibial plateau with plate, screws and bone graft and repair of lateral meniscus, right knee 11/19/2017. PAST MEDICAL HISTORY: 1. Sickle cell disease. 2. Seizure disorder with last seizure approximately a year ago. 3. Hypertension. 4. Cognitive dysfunction. MEDICATIONS PRIOR TO ADMISSION: 1. Aspirin. 2. Lasix 20 mg a day. 3. Hydrocodone. 4. Hydroxyurea 500 mg a day. 5. Keppra 500 mg 2 tablets bid day. 6. Lisinopril 10 mg a day. 7. Potassium chloride. 8. Tramadol 50 mg p.o. every 4 hours. CURRENT MEDICATIONS: 1. Cefepime. 2. DuoNebs. 3. Multivitamins. 4. Hydrocodone/acetaminophen. 5. Lisinopril 10 mg a day. 6. Keppra 500 mg p.o. b.i.d. 7. Hydroxyurea 500 mg a day. ALLERGIES: ERYTHROMYCIN. REVIEW OF SYSTEMS: Difficult to obtain. The patient does not have any complaints. PHYSICAL EXAMINATION: GENERAL: Reveals a quiet, withdrawn female. Her family speaks for her. VITAL SIGNS: Blood pressure 120/60, respiratory rate 18, pulse 90, temperature 99.3, O2 saturation 95%. HEENT: Head is normocephalic. Sclerae and conjunctivae are normal. Oropharynx unremarkable. NECK: No adenopathy. HEART: Regular rate and rhythm. LUNGS: Slightly diminished breath sounds at the bases. ABDOMEN: Soft. No hepatosplenomegaly. EXTREMITIES: The right leg is wrapped and immobile. She moves it very little ASSESSMENT: 1. Sickle cell disease: She has been transfused 2 units. Her current hemoglobin is adequate. She does not need any additional transfusions. continue OH-UREA 2. I do not feel that aspirin is adequate prophylaxis. This is a woman who is at greater risk than others of developing venous thrombosis as sickle cell disease itself increases the risk. In addition, she is not moving the right leg and is ill with recent surgery and possibly a small pneumonia at the bases of the lung. PLAN: 1. I called Dr. Juan Jose Hawley and asked if we could discontinue the aspirin and begin Lovenox 40 mg subcutaneous daily. He is in agreement and I have started the Lovenox. She should continue the Lovenox until she is fully active; due to her increased risk of venous thrombosis associated with surgery and SS disease. 2. Her current dose of Keppra in the hospital iis 500 mg p.o. b.i.d. Her mother told me her daughter takes 1000 b.i.d. I will change the dose to 100 mg Po bid and check a keppra level. Her neurologist is Dr. Lopes 3: Dr. Kelly will be back tomorrow. He looks after her in the clinic. Have discussed case with Dr. Kelly MD JAMES Hanna/MAURY , 03:34 PM , 04:34 PM [email or web address]
[2017-11-22] VITALS (9 sets, daily range): BP systolic 120–138; BP diastolic 65–80; PULSE 78–97; RESP 17–20; TEMP 97.4–100.3; O2SAT 96–100
[2017-11-22] MEDS: ACETAMINOPHEN/HYDROcodone 325 MG/10 MG TAB PO PRN ×2 (03:48→11:34)
[2017-11-22] MEDS: CEFEPIME INJ 2,000 MG in SODIUM CHLORIDE 0.9% INJ 100 ML IV SCH ×3 (05:47→22:19)
--- NOTE | 2017-11-22 06:48 | PD.ORT.PN ---
Subjective Subjective Remarks Appears comfortable. Mild pain Mother at bedside. No focused complaints Case discussed with Dr. Garland Doan yesterday Objective Vitals Vital Signs Date Time Temp Pulse Resp B/P (MAP) Pulse Ox O2 Delivery O2 Flow Rate FiO2 11/22/17 04:00 97.6 85 20 134/80 (98) 97 11/22/17 03:51 82 11/22/17 00:44 78 11/22/17 00:00 97.4 82 20 138/70 (92) 100 11/21/17 20:20 94 Nasal Cannula 2.00 Humidified 11/21/17 20:00 98.0 98 18 136/65 (88) 97 11/21/17 19:53 103 11/21/17 16:19 95 Nasal Cannula 2.00 11/21/17 16:00 100.1 96 19 158/71 (100) 93 11/21/17 14:21 2.00 11/21/17 12:00 99.3 95 19 119/63 (81) 95 11/21/17 10:00 97 19 95 11/21/17 09:53 97.1 145 19 130/60 (83) 95 11/21/17 08:00 100.5 100 19 144/74 (97) 91 I/O 11/21/17 11/21/17 11/21/17 11/22/17 11/22/17 11/22/17 07:00 15:00 23:00 07:00 15:00 23:00 Intake Total 1280 ml 360 ml 220 ml Output Total 500 ml 800 ml Balance 1280 ml -140 ml -580 ml Intake Oral 480 ml 360 ml 220 ml IV Total 800 ml Output Urine Total 500 ml 800 ml # Voids 8 6 # Bowel Movements 1 1 0 0 Result Diagram: 11/21/17 0820 11/21/17 1305 Objective Remarks Dressing dry. Knee immobilizer. No abnormal swelling. No calf tenderness. Negative Homans sign. Motor and sensation normal Assessment & Plan Assessment and Plan Depressed right lateral tibial plateau fracture. Osteopenia/osteoporosis. History of sickle cell anemia. Developmental delay. SURGERY: ORIF lateral tibial plateau with bone grafting and lateral plate: POD # 3 PLAN: Knee immobilizer full-time except during physical therapy. Full range of motion in PT Nonweightbearing. No dressing change. [place] for pain control. Lovenox 40 milligram daily, per Dr. Doan recommendation Discharge to SNF when medically clear Follow-up in 2 weeks Will follow peripherally Juan Jose Fregoso MD Nov 22, 2017 06:48
[2017-11-22 07:59] LABS: AUTOMATED NEUTROPHIL # 5.2 TH/MM3 (1.8-7.7); BASOPHIL # 0.1 TH/MM3 (0-0.2); BASOPHIL % 0.8 % (0.0-2.0); EOSINOPHIL # 0.3 TH/MM3 (0-0.4); EOSINOPHIL % 4.5 % (0.0-4.0); HEMOGLOBIN 7.5 GM/DL (11.6-15.3); LYMPH % 13.9 % (9.0-44.0); MEAN CELL VOLUME 94.7 FL (80.0-100.0); MEAN CORPUSCULAR HEMOGLOBIN 33.9 PG (27.0-34.0); MEAN CORPUSCULAR HGB CONC 35.8 % (32.0-36.0); MEAN PLATELET VOLUME 7.9 FL (7.0-11.0); MONO % 9.3 % (0.0-8.0); MONOCYTE # 0.7 TH/MM3 (0-0.9); NEUT % 71.5 % (16.0-70.0); PLATELET COUNT 196 TH/MM3 (150-450); RED BLOOD COUNT 2.21 MIL/MM3 (4.00-5.30); RED CELL DISTRIBUTION WIDTH 21.6 % (11.6-17.2); WHITE BLOOD COUNT 7.3 TH/MM3 (4.0-11.0)
[2017-11-22 08:04] LABS: HEMATOCRIT 20.9 % (35.0-46.0)
[2017-11-22] MEDS: CALCIUM/VITAMIN D 250 MG/125 U TAB PO SCH ×3 (08:12→16:29)
[2017-11-22] MEDS: levETIRAcetam 500 MG TAB PO SCH ×2 (08:12→20:30)
[2017-11-22] MEDS: DOCUSATE SODIUM 50 MG/SENNA 8.6 MG TAB PO SCH ×2 (08:12→20:30)
[2017-11-22] MEDS: MULTIVITAMINS/MINERALS THERAPEUTIC TAB PO SCH (08:12)
[2017-11-22] MEDS: LISINOPRIL 10 MG TAB PO SCH (08:12)
[2017-11-22] MEDS: HYDROXYUREA 500 MG CAP PO SCH (08:14)
[2017-11-22] MEDS: SODIUM CHLORIDE 0.9% FLUSH 10 ML FLUSH IV FLUSH SCH ×2 (08:15→20:35)
[2017-11-22 08:26] LABS: CALCIUM 8.2 MG/DL (8.5-10.1); CREATININE 0.51 MG/DL (0.50-1.00)
[2017-11-22 08:40] LABS: CORRECTED NUCLEATED RBC 3 /100 WBC (0-0); HOWELL-JOLLY BODIES PRESENT (NONE SEEN); LYMPHOCYTES 19 % (9-44); MONOCYTES 12 % (0-8); NEUTROPHIL # MANUAL DIFF 4.8 TH/MM3 (1.8-7.7); NUCLEATED RED BLOOD CELL 3 (0-0); POLYS (SEG NEUTROPHILS) 66 % (16-70); TARGET CELLS 1+ (NORMAL)
[2017-11-22 08:41] LABS: SICKLE CELLS 2+ (NORMAL)
--- NOTE | 2017-11-22 13:23 | HHI.FPPN ---
Subjective Remarks Patient states that she is doing well today. Satting 98% on 2 L nasal cannula oxygen. Afebrile overnight. No pain, chest pain, or episodes of shortness of breath. Mother at bedside. (Shona Claros MD R1) Objective Vitals Vital Signs Date Time Temp Pulse Resp B/P (MAP) Pulse Ox O2 Delivery O2 Flow Rate FiO2 11/22/17 12:00 99.9 94 17 120/69 (86) 98 11/22/17 12:00 Nasal Cannula 2.00 11/22/17 08:50 99 Nasal Cannula 2.00 11/22/17 08:00 98.0 85 17 126/72 (90) 99 11/22/17 04:00 97.6 85 20 134/80 (98) 97 11/22/17 03:51 82 11/22/17 00:44 78 11/22/17 00:00 97.4 82 20 138/70 (92) 100 11/21/17 20:20 94 Nasal Cannula 2.00 Humidified 11/21/17 20:00 98.0 98 18 136/65 (88) 97 11/21/17 19:53 103 11/21/17 16:19 95 Nasal Cannula 2.00 11/21/17 16:00 100.1 96 19 158/71 (100) 93 11/21/17 14:21 2.00 I/O 11/21/17 11/21/17 11/21/17 11/22/17 11/22/17 11/22/17 07:00 15:00 23:00 07:00 15:00 23:00 Intake Total 1280 ml 360 ml 220 ml Output Total 500 ml 800 ml Balance 1280 ml -140 ml -580 ml Intake Oral 480 ml 360 ml 220 ml IV Total 800 ml Output Urine Total 500 ml 800 ml # Voids 8 6 # Bowel Movements 1 1 0 0 (Shona Claros MD R1) Result Diagram: 11/22/17 0653 11/22/17 0653 Objective Remarks GENERAL: thin pleasant female resting comfortably in bed. Mother at bedside. SKIN: Warm and dry. No rash. HEENT: Atraumatic, normocephalic with extraocular motions intact. No bleeding or nasal discharge from the nares. CARDIOVASCULAR: Regular rate with regular rhythm. RESPIRATORY: Clear to auscultation bilaterally with no crackles, wheezes, or rhonchi. Breathing comfortably GASTROINTESTINAL: Abdomen soft and nondistended MUSCULOSKELETAL: No cyanosis or edema. Right lower extremity: Right lower extremity currently wrapped in Stefan bandage in immobilizer brace. Sensation intact above and below wrap. Able to move all 5 digits. NEURO/PSYCH: Afocal. Awake, alert, and oriented x3. Patient with limited participation in history due to mental delay. (Shona Claros MD R1) A/P Assessment and Plan Ms. Hassan is a 52-year-old female who presented after a fall with right lower extremity pain found to have right depressed lateral tibial plateau fracture. S/ P surgery 11/19/17. Patient did well postooperative. Right lower extremity was wrapped in Stefan bandage and immobilizer brace. Home medications were continued. On 11/23, Had an episode of tachycardia up to 140's with associated fever up to 100.5, decreased O2 saturation to 89% on RA. Cardiac enzymes, EKG were negative for [facility]. Pulmonary CT was ordered, showed cardiac heart failure, pulmonary hypertension, and bibasilar consolidation. Given a bolus, supplemental oxygen titrated to above 94%, and started on antibiotics (IV cefepime) for hospital- acquired pneumonia. Patient showed significant improvement the next day. Hematology saw the patient and recommended Lovenox 40 mg daily and discontinued aspirin, as it did not provide 5 enough anticoagulation for patient's sickle cell history. Case management was consulted for planning discharge to SNF. Orthopedic surgery recommended knee immobilizer full-time except during physical therapy and for the patient to continue physical therapy. IV cefepime was transitioned to PO 750mg Levofloxacin that she will need to continue for total course of 7 days. Discharge Planning Anticipate discharge to SNF tomorrow. Will touch base with case management today and transition to by mouth antibiotics (Shona Claros MD R1) Attending Attestation Patient seen and examined. Case reviewed and discussed with the resident team. Agree with plan of care as discussed with me and documented in the resident note. (Katheryn Henry MD) Problem List: (1) Tibial plateau fracture, right ICD Codes: S82.141A - Displaced bicondylar fracture of right tibia, initial encounter for closed fracture Status: Resolved Plan: -Knee x-ray: Right depressed/downsloping lateral tibial plateau fracture with large joint effusion. -Right knee CT: Acute lateral tibial plateau fracture with up to 8.5 mm of depression noted. Most of the depression involves the central to lateral weightbearing surface. Depression is fairly smooth/gradual without focal areas of abrupt step-off seen. No intra-articular osteochondral bodies. -Chest x-ray: Negative for acute process -Incentive spirometry -Orthopedic surgery consulted -Dr. Juan Jose Hawley performed Open treatment internal fixation right lateral tibial plateau with plates and screws and bone graft, open repair lateral meniscus 11/19/17 - Patient is cleared from surgery standpoint Medications: -Morphine as needed for pain -Constipation protocol in place -Lovenox 40 every 24 hours (2) Tachycardia ICD Codes: R00.0 - Tachycardia, unspecified Status: Resolved Plan: Episode of tachycardia yesterday up to 140's with associated fever up to 100.5, decreased O2 saturation to 89% on RA. No clinical symptoms per patient. AM CBC stable, relatively unchanged from prior Unrevealing work-up Symptoms have resolved (3) Inverted T wave ICD Codes: R94.31 - Abnormal electrocardiogram [ECG] [EKG] Status: Acute Plan: -Admission EKG: Sinus tachycardia with a heart rate of 91 bpm. Occasional PVC. Normal intervals. Left ventricular hypertrophy per voltage. Inverted T waves in lateral leads V5 and V6 new from prior EKG. Troponin x 3 wnl -Cardiac telemetry Sinus tachycardia this AM up to 140's, repeat EKG unchanged from EKG on admission (4) Sickle cell disease ICD Codes: D57.1 - Sickle-cell disease without crisis Status: Chronic Plan: -CBC: H/H 6.4/17.2 on admission- near baseline per chart review -Due large lipohemarthrosis on imaging with tachycardia and need of surgical fixation, patient transfused 2 units PRBC with additional units on hold H/H now stable at 7.5/20.9 Transfuse if hemoglobin <6. If active bleeding, transfuse 1 units PRBCs Medications: -Tylenol and Benadryl ordered as needed -Continue home hydroxyurea (5) Seizure disorder ICD Codes: G40.909 - Seizure disorder Status: Acute Plan: Medications: -Continue Keppra 1g BID (6) Hypertension ICD Codes: I10 - Essential (primary) hypertension Status: Acute Plan: -Continue home lisinopril -Clonidine when necessary for blood pressure greater than 180/110 (7) DVT prophylaxis Status: Acute Plan: -Ortho pharmacologic DVT prophylaxis with Lovenox 40 mg daily -SCD to nonoperative leg (8) Nutrition, metabolism, and development symptoms ICD Codes: R63.8 - Symptoms concerning nutrition, metabolism, and development Status: Acute Plan: -Fluids: none -Diet: Regular diet -Electrolytes: wnl; continue to monitor -Prophylaxis: Albuterol when necessary for shortness of breath, constipation protocol in place, morphine when necessary for pain, Zofran when necessary for nausea/vomiting, clonidine when necessary for blood pressure greater than 180/ 110 (Shona Claros MD R1) Problem Qualifiers (1) Tibial plateau fracture, right: Qualified Codes: S82.141A - Displaced bicondylar fracture of right tibia, initial encounter for closed fracture (2) Sickle cell disease: Qualified Codes: D57.1 - Sickle-cell disease without crisis (3) Hypertension: Qualified Codes: I10 - Essential (primary) hypertension Shona Claros MD R1 Nov 22, 2017 13:23 Katheryn Henry MD Nov 23, 2017 08:30
[2017-11-22] MEDS ORDERED: LEVOFLOXACIN 750 MG TAB PO SCH (14:00)
--- NOTE | 2017-11-22 14:29 | PD.ONC.PN ---
Subjective Subjective Remarks T-max 99.9 this afternoon Patient reports the pain in her knee is well controlled No bleeding Objective Data Date Time Temp Pulse Resp B/P (MAP) Pulse Ox O2 Delivery O2 Flow Rate FiO2 11/22/17 12:00 99.9 94 17 120/69 (86) 98 11/22/17 12:00 Nasal Cannula 2.00 11/22/17 08:50 99 Nasal Cannula 2.00 11/22/17 08:00 98.0 85 17 126/72 (90) 99 11/22/17 04:00 97.6 85 20 134/80 (98) 97 11/22/17 03:51 82 11/22/17 00:44 78 11/22/17 00:00 97.4 82 20 138/70 (92) 100 11/21/17 20:20 94 Nasal Cannula 2.00 Humidified 11/21/17 20:00 98.0 98 18 136/65 (88) 97 11/21/17 19:53 103 11/21/17 16:19 95 Nasal Cannula 2.00 11/21/17 16:00 100.1 96 19 158/71 (100) 93 11/22/17 11/22/17 11/22/17 07:00 15:00 23:00 Intake Total 220 ml Output Total 800 ml Balance -580 ml Result Diagram: 11/22/1753 11/22/17 0653 Laboratory Results Laboratory Tests Test 11/22/17 06:53 White Blood Count 7.3 TH/MM3 Red Blood Count 2.21 MIL/MM3 Hemoglobin 7.5 GM/DL Hematocrit 20.9 % Mean Corpuscular Volume 94.7 FL Mean Corpuscular Hemoglobin 33.9 PG Mean Corpuscular Hemoglobin Concent 35.8 % Red Cell Distribution Width 21.6 % Platelet Count 196 TH/MM3 Mean Platelet Volume 7.9 FL Neutrophils (%) (Auto) 71.5 % Lymphocytes (%) (Auto) 13.9 % Monocytes (%) (Auto) 9.3 % Eosinophils (%) (Auto) 4.5 % Basophils (%) (Auto) 0.8 % Neutrophils # (Auto) 5.2 TH/MM3 Lymphocytes # (Auto) 1.0 TH/MM3 Monocytes # (Auto) 0.7 TH/MM3 Eosinophils # (Auto) 0.3 TH/MM3 Basophils # (Auto) 0.1 TH/MM3 CBC Comment AUTO DIFF Differential Total Cells Counted 100 Neutrophils % (Manual) 66 % Lymphocytes % 19 % Monocytes % 12 % Eosinophils % 3 % Neutrophils # (Manual) 4.8 TH/MM3 Nucleated Red Blood Cells 3 /100 WBC Differential Comment FINAL DIFF MANUAL Platelet Estimate NORMAL Platelet Morphology Comment NORMAL Sickle Cells 2+ Target Cells 1+ Mahmood-Stinnett Bodies PRESENT Red Cell Morphology Comment Blood Urea Nitrogen 15 MG/DL Creatinine 0.51 MG/DL Random Glucose 91 MG/DL Calcium Level 8.2 MG/DL Sodium Level 141 MEQ/L Potassium Level 4.0 MEQ/L Chloride Level 107 MEQ/L Carbon Dioxide Level 26.0 MEQ/L Anion Gap 8 MEQ/L Estimat Glomerular Filtration Rate 152 ML/MIN Culture Results Microbiology Date/Time Source Procedure Growth Status 11/22/17 06:53 Blood Peripheral Aerobic Blood Culture Pending Received 11/22/17 06:53 Blood Peripheral Anaerobic Blood Culture Pending Received 11/21/17 13:05 Blood Peripheral Aerobic Blood Culture - Preliminary NO GROWTH IN 1 DAY Resulted 11/21/17 13:05 Blood Peripheral Anaerobic Blood Culture - Preliminary NO GROWTH IN 1 DAY Resulted 11/22/17 03:55 Nasal Washing Influenza Types A,B Antigen (KRISTEN) Pending Ordered 11/21/17 17:30 Urine Random Urine Legionella Antigen - Final PRESUMPTIVE NEGATIVE FOR LEGIONELLA P... Complete 11/21/17 17:30 Urine Random Urine Streptococcus pneumoniae Antigen (M - Final PRESUMPTIVE NEGATIVE FOR STREPTOCOCCU... Complete Administered Medications Medications (Trade) Dose Ordered Sig/Zuri Route PRN Reason Start Time Stop Time Status Last Admin Dose Admin Lisinopril (Prinivil) 10 mg DAILY PO 11/19/17 09:00 11/22/17 08:12 Hydroxyurea (Hydrea) 500 mg DAILY PO 11/18/17 20:00 11/22/17 08:14 Sodium Chloride (NS Flush) 2 ml UNSCH PRN IV FLUSH FLUSH AFTER USING IV ACCESS 11/18/17 20:30 11/20/17 00:29 Sodium Chloride (NS Flush) 2 ml BID IV FLUSH 11/18/17 21:00 11/22/17 08:15 Morphine Sulfate (Morphine Inj) 3 mg Q3H PRN IV PUSH Pain 6-10;if unable to take PO 11/18/17 20:30 11/20/17 19:24 Lactulose (Lactulose Liq) 30 ml DAILY PRN PO SEVERE CONSITIPATION 11/18/17 20:30 11/20/17 19:23 Senna/Docusate Sodium (Pilar-Colace) 1 tab BID PO 11/19/17 21:00 11/22/17 08:12 Acetaminophen/ Hydrocodone Bitart ([place] 10-325 Mg) 1 tab Q6H PRN PO PAIN LESS THAN 5 ON SCALE 11/19/17 18:00 11/22/17 03:48 Acetaminophen/ Hydrocodone Bitart ([place] 10-325 Mg) 2 tab Q6H PRN PO PAIN GREATER THAN/EQUAL TO 5 11/19/17 18:00 11/22/17 11:34 Ondansetron HCl (Zofran Inj) 4 mg Q4H PRN IVP NAUSEA OR VOMITING 11/19/17 18:00 11/20/17 04:37 Calcium/Vitamin D (Oscal-D 250-125) 250 mg TID PO 11/19/17 18:00 11/22/17 11:34 Multivitamins/ Minerals Therapeutic (Theragran M Tab) 1 tab DAILY PO 11/20/17 09:00 11/22/17 08:12 Cefepime HCl 2000 mg/Sodium Chloride 100 ml @ 200 mls/hr Q8HR IV 11/21/17 15:00 11/22/17 05:47 Enoxaparin Sodium (Lovenox Inj) 40 mg Q24H SQ 11/21/17 16:00 11/21/17 15:38 Levetriacetam (Keppra) 1,000 mg BID PO 11/21/17 21:00 11/22/17 08:12 Objective Remarks GENERAL: Middle-aged female sitting up in chair at bedside no obvious distress SKIN: Warm and dry. HEAD: Normocephalic. EYES: No scleral icterus. No injection or drainage. NECK: Supple, trachea midline. No JVD or lymphadenopathy. CARDIOVASCULAR: Regular rate and rhythm without murmurs. RESPIRATORY: Breath sounds equal bilaterally. No accessory muscle use. GASTROINTESTINAL: Abdomen soft, non-tender, nondistended. EXTREMITIES: Right leg wrapped in bandage elevated on pillow. Toes are warm and well-perfused MUSCULOSKELETAL: Adequate muscle tone. NEUROLOGICAL: No obvious focal deficit. Awake, alert, and oriented x3. Assessment/Plan Problem List: (1) Sickle cell disease ICD Codes: D57.1 - Sickle-cell disease without crisis Status: Chronic Plan: --Status post 2 units packed red blood cells this hospitalization --Would recommend to hold transfusion unless hemoglobin less than 6.5 or if patient is symptomatic or has bleeding --On Hydrea 500 mg once daily Assessment 52-year-old female with history of sickle cell admitted for ORIF of the right knee Plan 1. Monitor CBC 2. Continue Hydrea 3. No transfusion except for bleeding; pt's baseline Hgb is around 6.5. Problem Qualifiers (1) Sickle cell disease: Qualified Codes: D57.1 - Sickle-cell disease without crisis Yuli Alexander Nov 22, 2017 14:29
[2017-11-22] MEDS: ENOXAPARIN SODIUM 40 MG/0.4 ML SYRINGE SQ SCH (16:28)
--- NOTE | 2017-11-22 16:40 | ECHRPT ---
Indication: HEART FAILURE CONCLUSIONS Normal left ventricular size. Mild concentric left ventricular hypertrophy. The left ventricular systolic function is low normal (EF 50%). The left atrial size is mildly dilated. The right atrial size is mildly dilated. Trace mitral valve regurgitation. Aortic valve sclerosis is present. Trace aortic valve regurgitation. There is trace tricuspid valve regurgitation. The estimated pulmonary arterial pressure is 32 mmHg. Trivial pulmonary valve regurgitation. BP: 126 / 72 HR: 85 Rhythm: Sinus MEASUREMENTS (Male / Female) Normal Values Technical Quality:Fair 2D ECHO LV Diastolic Diameter PLAX 5.2 cm 4.2 - 5.9 / 3.9 - 5.3 cm LV Systolic Diameter PLAX 3.4 cm IVS Diastolic Thickness 1.0 cm 0.6 - 1.0 / 0.6 - 0.9 cm LVPW Diastolic Thickness 1.0 cm 0.6 - 1.0 / 0.6 - 0.9 cm LV Relative Wall Thickness 0.4 RV Internal Dim ED PLAX 2.8 cm LVOT Diameter 2.3 cm Aortic Root Diameter 3.3 cm LA Systolic Diameter LX 3.6 cm 3.0 - 4.0 / 2.7 - 3.8 cm M-MODE AV Cusp Separation MM 2.4 cm DOPPLER AV Peak Velocity 114.0 cm/s AV Peak Gradient 5.2 mmHg AV Mean Gradient 3.0 mmHg AV Velocity Time Integral 21.5 cm LVOT Peak Velocity 91.7 cm/s LVOT Peak Gradient 3.4 mmHg LVOT Velocity Time Integral 16.1 cm AV Area Cont Eq vti 3.1 cm AV Area Cont Eq pk 3.3 cm Mitral E Point Velocity 58.7 cm/s Mitral A Point Velocity 66.6 cm/s Mitral E to A Ratio 0.9 LV E' Lateral Velocity 5.1 cm/s Mitral E to LV E' Lateral Ratio 11.6 LV E' Septal Velocity 5.9 cm/s Mitral E to LV E' Septal Ratio 9.9 TR Peak Velocity 232.0 cm/s TR Peak Gradient 21.5 mmHg Right Atrial Pressure 10.0 mmHg Pulmonary Artery Systolic Pressu 31.5 mmHg Right Ventricular Systolic Press 31.5 mmHg PV Peak Velocity 56.4 cm/s PV Peak Gradient 1.3 mmHg FINDINGS LEFT VENTRICLE Normal left ventricular size. Mild concentric left ventricular hypertrophy. RIGHT VENTRICLE The right ventricle was not well visualized. LEFT ATRIUM The left atrial size is mildly dilated. RIGHT ATRIUM The right atrial size is mildly dilated. ATRIAL SEPTUM No atrial level shunt is demonstrated by color flow Doppler interrogation. AORTA The aortic root and proximal ascending aorta are normal in size on limited imaging. MITRAL VALVE Trace mitral valve regurgitation. AORTIC VALVE Aortic valve sclerosis is present. Trace aortic valve regurgitation. TRICUSPID VALVE There is trace tricuspid valve regurgitation. The estimated pulmonary arterial pressure is 31.5 mmHg. PULMONARY VALVE Trivial pulmonary valve regurgitation. VESSELS The inferior vena cava is normal in size. PERICARDIUM No pericardial effusion. Rubio Redd MD, FACC (Electronically Signed) Final Date:22 November 2017 16:39
[2017-11-23] VITALS (9 sets, daily range): BP systolic 103–140; BP diastolic 62–80; PULSE 80–111; RESP 16–22; TEMP 96.7–99.2; O2SAT 93–98
[2017-11-23] MEDS: ACETAMINOPHEN/HYDROcodone 325 MG/10 MG TAB PO PRN ×3 (00:33→19:00)
[2017-11-23 04:53] LABS: AUTOMATED NEUTROPHIL # 4.3 TH/MM3 (1.8-7.7); BASOPHIL # 0.1 TH/MM3 (0-0.2); EOSINOPHIL # 0.4 TH/MM3 (0-0.4); EOSINOPHIL % 6.1 % (0.0-4.0); HEMATOCRIT 19.3 % (35.0-46.0); LYMPH % 16.2 % (9.0-44.0); LYMPHOCYTE # 1.1 TH/MM3 (1.0-4.8); MEAN CORPUSCULAR HEMOGLOBIN 33.3 PG (27.0-34.0); MEAN CORPUSCULAR HGB CONC 35.8 % (32.0-36.0); MEAN PLATELET VOLUME 7.3 FL (7.0-11.0); MONO % 11.2 % (0.0-8.0); MONOCYTE # 0.7 TH/MM3 (0-0.9); NEUT % 65.5 % (16.0-70.0); PLATELET COUNT 184 TH/MM3 (150-450); RED BLOOD COUNT 2.07 MIL/MM3 (4.00-5.30); RED CELL DISTRIBUTION WIDTH 20.2 % (11.6-17.2); WHITE BLOOD COUNT 6.6 TH/MM3 (4.0-11.0)
[2017-11-23 04:57] LABS: HEMOGLOBIN 6.9 GM/DL (11.6-15.3)
[2017-11-23] MEDS: LEVOFLOXACIN 750 MG TAB PO SCH (05:59)
--- NOTE | 2017-11-23 07:25 | PD.ORT.PN ---
Subjective Subjective Remarks Appears comfortable. Mild pain Mother at bedside. Objective Vitals Vital Signs Date Time Temp Pulse Resp B/P (MAP) Pulse Ox O2 Delivery O2 Flow Rate FiO2 11/23/17 04:00 98.2 93 18 140/80 (100) 94 11/23/17 03:32 94 Nasal Cannula 2.00 11/23/17 03:32 94 Nasal Cannula 2.00 11/23/17 00:00 98.9 102 22 129/74 (92) 94 11/22/17 20:00 100.3 97 18 125/70 (88) 96 11/22/17 15:58 97.7 92 17 135/65 (88) 96 11/22/17 12:00 99.9 94 17 120/69 (86) 98 11/22/17 12:00 Nasal Cannula 2.00 11/22/17 08:50 99 Nasal Cannula 2.00 11/22/17 08:00 98.0 85 17 126/72 (90) 99 I/O 11/22/17 11/22/17 11/22/17 11/23/17 11/23/17 11/23/17 07:00 15:00 23:00 07:00 15:00 23:00 Intake Total 220 ml 560 ml 480 ml Output Total 800 ml Balance -580 ml 560 ml 480 ml Intake Oral 220 ml 560 ml 480 ml Output Urine Total 800 ml # Voids 3 4 2 # Bowel Movements 0 0 0 1 Result Diagram: 11/23/17 0440 11/22/17 0653 Objective Remarks Dressing dry. Knee immobilizer. No abnormal swelling. No calf tenderness. Negative Homans sign. Motor and sensation normal Assessment & Plan Assessment and Plan Depressed right lateral tibial plateau fracture. Osteopenia/osteoporosis. History of sickle cell anemia. Developmental delay. SURGERY: ORIF lateral tibial plateau with bone grafting and lateral plate: POD # 4 PLAN: Knee immobilizer full-time except during physical therapy. Full range of motion in PT Nonweightbearing. No dressing change. [place] for pain control. Lovenox 40 milligram daily, per Dr. Doan recommendation Discharge to SNF when medically clear Hemoglobin 6.9. History of sickle cell anemia. Will defer to medical with regard to treatment Follow-up in 2 weeks Will follow peripherally Juan Jose Fregoso MD Nov 23, 2017 07:25
--- NOTE | 2017-11-23 08:47 | PD.ONC.PN ---
Subjective Subjective Remarks Patient seen and examined, vital signs, labs, imaging studies, operative notes and medications reviewed. Subjectively; Ms. bergman reports her pain in the right knee and right leg have improved. She sitting up in bed at this time having breakfast. Her mother is at bedside. The patient's mother does most of the talking, the mother recounted the sequence of events that occurred at the patient's workplace that led to her fall and how the patient was sent home instead of the emergency Department after she fell. Objective Data Date Time Temp Pulse Resp B/P (MAP) Pulse Ox O2 Delivery O2 Flow Rate FiO2 11/23/17 04:00 98.2 93 18 140/80 (100) 94 11/23/17 03:32 94 Nasal Cannula 2.00 11/23/17 03:32 94 Nasal Cannula 2.00 11/23/17 00:00 98.9 102 22 129/74 (92) 94 11/22/17 20:00 100.3 97 18 125/70 (88) 96 11/22/17 15:58 97.7 92 17 135/65 (88) 96 11/22/17 12:00 99.9 94 17 120/69 (86) 98 11/22/17 12:00 Nasal Cannula 2.00 11/22/17 08:50 99 Nasal Cannula 2.00 Result Diagram: 11/23/17 0440 11/22/17 0653 Laboratory Results Laboratory Tests Test 11/23/17 04:40 White Blood Count 6.6 TH/MM3 Red Blood Count 2.07 MIL/MM3 Hemoglobin 6.9 GM/DL Hematocrit 19.3 % Mean Corpuscular Volume 93.0 FL Mean Corpuscular Hemoglobin 33.3 PG Mean Corpuscular Hemoglobin Concent 35.8 % Red Cell Distribution Width 20.2 % Platelet Count 184 TH/MM3 Mean Platelet Volume 7.3 FL Neutrophils (%) (Auto) 65.5 % Lymphocytes (%) (Auto) 16.2 % Monocytes (%) (Auto) 11.2 % Eosinophils (%) (Auto) 6.1 % Basophils (%) (Auto) 1.0 % Neutrophils # (Auto) 4.3 TH/MM3 Lymphocytes # (Auto) 1.1 TH/MM3 Monocytes # (Auto) 0.7 TH/MM3 Eosinophils # (Auto) 0.4 TH/MM3 Basophils # (Auto) 0.1 TH/MM3 CBC Comment DIFF FINAL Differential Comment Culture Results Microbiology Date/Time Source Procedure Growth Status 11/22/17 06:53 Blood Peripheral Aerobic Blood Culture Pending Received 11/22/17 06:53 Blood Peripheral Anaerobic Blood Culture Pending Received 11/21/17 13:05 Blood Peripheral Aerobic Blood Culture - Preliminary NO GROWTH IN 1 DAY Resulted 11/21/17 13:05 Blood Peripheral Anaerobic Blood Culture - Preliminary NO GROWTH IN 1 DAY Resulted 11/22/17 03:55 Nasal Washing Influenza Types A,B Antigen (KRISTEN) Pending Ordered 11/21/17 17:30 Urine Random Urine Legionella Antigen - Final PRESUMPTIVE NEGATIVE FOR LEGIONELLA P... Complete 11/21/17 17:30 Urine Random Urine Streptococcus pneumoniae Antigen (M - Final PRESUMPTIVE NEGATIVE FOR STREPTOCOCCU... Complete Administered Medications Medications (Trade) Dose Ordered Sig/Zuri Route PRN Reason Start Time Stop Time Status Last Admin Dose Admin Lisinopril (Prinivil) 10 mg DAILY PO 11/19/17 09:00 11/22/17 08:12 Hydroxyurea (Hydrea) 500 mg DAILY PO 11/18/17 20:00 11/22/17 08:14 Sodium Chloride (NS Flush) 2 ml UNSCH PRN IV FLUSH FLUSH AFTER USING IV ACCESS 11/18/17 20:30 11/20/17 00:29 Sodium Chloride (NS Flush) 2 ml BID IV FLUSH 11/18/17 21:00 11/22/17 20:35 Lactulose (Lactulose Liq) 30 ml DAILY PRN PO SEVERE CONSITIPATION 11/18/17 20:30 11/20/17 19:23 Senna/Docusate Sodium (Pilar-Colace) 1 tab BID PO 11/19/17 21:00 11/22/17 20:30 Acetaminophen/ Hydrocodone Bitart ([place] 10-325 Mg) 1 tab Q6H PRN PO PAIN LESS THAN 5 ON SCALE 11/19/17 18:00 11/22/17 03:48 Acetaminophen/ Hydrocodone Bitart ([place] 10-325 Mg) 2 tab Q6H PRN PO PAIN GREATER THAN/EQUAL TO 5 11/19/17 18:00 11/23/17 00:33 Ondansetron HCl (Zofran Inj) 4 mg Q4H PRN IVP NAUSEA OR VOMITING 11/19/17 18:00 11/20/17 04:37 Calcium/Vitamin D (Oscal-D 250-125) 250 mg TID PO 11/19/17 18:00 11/22/17 16:29 Multivitamins/ Minerals Therapeutic (Theragran M Tab) 1 tab DAILY PO 11/20/17 09:00 11/22/17 08:12 Enoxaparin Sodium (Lovenox Inj) 40 mg Q24H SQ 11/21/17 16:00 11/22/17 16:28 Levetriacetam (Keppra) 1,000 mg BID PO 11/21/17 21:00 11/22/17 20:30 Levofloxacin (Levaquin) 750 mg Q24H PO 11/23/17 06:00 11/23/17 05:59 Objective Remarks GENERAL: Middle-aged female sitting up in chair at bedside no obvious distress. She has obvious neurocognitive deficits. Her mother does most with talking. SKIN: Warm and dry. HEAD: Normocephalic. EYES: No scleral icterus. No injection or drainage. NECK: Supple, trachea midline. No JVD or lymphadenopathy. CARDIOVASCULAR: Regular rate and rhythm without murmurs. RESPIRATORY: Breath sounds equal bilaterally. No accessory muscle use. GASTROINTESTINAL: Abdomen soft, non-tender, nondistended. EXTREMITIES: Right leg wrapped in bandage elevated on pillow. Toes are warm and well-perfused MUSCULOSKELETAL: Right leg in a brace. NEUROLOGICAL: No obvious focal deficit. Awake, alert, and oriented x3. Assessment/Plan Problem List: (1) Sickle cell disease ICD Codes: D57.1 - Sickle-cell disease without crisis Status: Chronic Plan: --Status post 2 units packed red blood cells this hospitalization --Would recommend to hold transfusion unless hemoglobin less than 6.5 or if patient is symptomatic or has bleeding --On Hydrea 500 mg once daily Assessment 52-year-old female with history of sickle cell admitted for ORIF of the right knee Plan 1. Monitor CBC, her baseline hemoglobin runs between 6 and 6.5 g/dL.Supportive transfusions if she has symptomatic anemia or if there is on going bleeding. 2. Continue Hydrea. 3. DVT prophylaxis with Lovenox 40 mg subcutaneous once daily for up to 4-6 weeks after surgery. Disposition: May be transferred to nursing home facility/short-term rehabilitation or to home depending on physical therapy and orthopedic surgery recommendations. Problem Qualifiers (1) Sickle cell disease: Qualified Codes: D57.1 - Sickle-cell disease without crisis Og Kelly MD Nov 23, 2017 08:47
[2017-11-23] MEDS: levETIRAcetam 500 MG TAB PO SCH ×2 (08:52→22:18)
[2017-11-23] MEDS: DOCUSATE SODIUM 50 MG/SENNA 8.6 MG TAB PO SCH ×2 (08:53→22:18)
[2017-11-23] MEDS: CALCIUM/VITAMIN D 250 MG/125 U TAB PO SCH ×3 (08:53→17:47)
[2017-11-23] MEDS: LISINOPRIL 10 MG TAB PO SCH (08:53)
[2017-11-23] MEDS: MULTIVITAMINS/MINERALS THERAPEUTIC TAB PO SCH (08:53)
[2017-11-23] MEDS: SODIUM CHLORIDE 0.9% FLUSH 10 ML FLUSH IV FLUSH SCH ×2 (08:54→22:35)
[2017-11-23] MEDS: HYDROXYUREA 500 MG CAP PO SCH (08:54)
--- NOTE | 2017-11-23 11:28 | HHI.FPPN ---
Subjective Remarks Patient with tachycardia up to 111 overnight. Per her mother, she did not sleep well overnight but has not been complaining of any chest pain, shortness of breath, fever, chills, nausea or vomiting. She continues to tolerate by mouth and is voiding and stooling without difficulty. Temperature high of 100.3 overnight. (Fatuma Lyn MD, R3) Objective Vitals Vital Signs Date Time Temp Pulse Resp B/P (MAP) Pulse Ox O2 Delivery O2 Flow Rate FiO2 11/23/17 08:00 99.2 111 18 121/69 (86) 93 11/23/17 04:00 98.2 93 18 140/80 (100) 94 11/23/17 03:32 94 Nasal Cannula 2.00 11/23/17 03:32 94 Nasal Cannula 2.00 11/23/17 00:00 98.9 102 22 129/74 (92) 94 11/22/17 20:00 100.3 97 18 125/70 (88) 96 11/22/17 15:58 97.7 92 17 135/65 (88) 96 11/22/17 12:00 99.9 94 17 120/69 (86) 98 11/22/17 12:00 Nasal Cannula 2.00 I/O 11/22/17 11/22/17 11/22/17 11/23/17 11/23/17 11/23/17 07:00 15:00 23:00 07:00 15:00 23:00 Intake Total 220 ml 560 ml 480 ml Output Total 800 ml Balance -580 ml 560 ml 480 ml Intake Oral 220 ml 560 ml 480 ml Output Urine Total 800 ml # Voids 3 4 2 # Bowel Movements 0 0 0 1 (Fatuma Lyn MD, R3) Result Diagram: 11/23/17 0440 11/22/17 [address] Angiography 11/21/17 0000 Signed Impressions: Service Date/Time: Tuesday, November 21, 2017 10:56 - CONCLUSION: 1. No evidence of PE. 2. Findings are consistent with congestive heart failure and pulmonary hypertension. Bilateral basilar airspace consolidation.. Consuelo Presley MD Tibia/Fibula X-Ray 11/19/17 0000 Signed Impressions: Service Date/Time: Sunday, November 19, 2017 16:33 - CONCLUSION: Screw and plate fixation of the lateral tibial plateau fracture. Normal alignment. No acute complication demonstrated. Suhail Alberto MD Chest X-Ray 11/18/17 1835 Signed Impressions: Service Date/Time: November 18:49 - CONCLUSION: No acute cardiopulmonary disease demonstrated. Suhail Alberto MD Lower Extremity CT 11/18/17 0000 Signed Impressions: Service Date/Time: November 19:00 - CONCLUSION: Depressed lateral tibial plateau fracture as above. Suhail Alberto MD Knee X-Ray 11/18/17 0000 Signed Impressions: Service Date/Time: November 17:46 - CONCLUSION: Depressed/downsloping lateral tibial plateau fracture with a large joint effusion. Suhail Alberto MD Objective Remarks GENERAL: thin pleasant female resting comfortably in bed. Mother at bedside. SKIN: Warm and clammy. No rash. HEENT: Atraumatic, normocephalic with extraocular motions intact. No bleeding or nasal discharge from the nares. CARDIOVASCULAR: Tachycardic rate with regular rhythm. RESPIRATORY: Clear to auscultation bilaterally with no crackles, wheezes, or rhonchi. Breathing comfortably GASTROINTESTINAL: Abdomen soft and nondistended MUSCULOSKELETAL: No cyanosis or edema. Right lower extremity: Right lower extremity currently wrapped in Stefan bandage in immobilizer brace. Sensation intact above and below wrap. Able to move all 5 digits. NEURO/PSYCH: Afocal. Awake, alert, and oriented x3. Patient with limited participation in history due to mental delay. (Fatuma Lyn MD, R3) A/P Assessment and Plan Ms. Hassan is a 52-year-old female who presented after a fall with right lower extremity pain found to have right depressed lateral tibial plateau fracture. S/ P surgery 11/19/17. On 11/23, she was diagnosed with pneumonia and started on antibiotics. Discharge Planning Anticipate discharge to SNF today or tomorrow. (Fatuma Lyn MD, R3) Attending Attestation Patient seen and examined. Case reviewed and discussed with the resident team. Agree with plan of care as discussed with me and documented in the resident note. (Katheryn Henry MD) Problem List: (1) HCAP (healthcare-associated pneumonia) ICD Codes: J18.9 - Pneumonia, unspecified organism Plan: Patient with tachycardia up to 140's with associated fever up to 100.5, decreased O2 saturation to 89% on RA on 11/21. Cardiac enzymes, EKG negative for OH. Pulmonary CTA negative for PE, but did show cardiac heart failure, pulmonary hypertension, and bibasilar consolidation. s/p IV cefepime 11/21-11/22, transitioned to PO 750mg Levofloxacin that she will need to continue for total course of 7 days (2) Tibial plateau fracture, right ICD Codes: S82.141A - Displaced bicondylar fracture of right tibia, initial encounter for closed fracture Status: Resolved Plan: -Knee x-ray: Right depressed/downsloping lateral tibial plateau fracture with large joint effusion. -Right knee CT: Acute lateral tibial plateau fracture with up to 8.5 mm of depression noted. Most of the depression involves the central to lateral weightbearing surface. Depression is fairly smooth/gradual without focal areas of abrupt step-off seen. No intra-articular osteochondral bodies. -Chest x-ray: Negative for acute process -Incentive spirometry -Orthopedic surgery consulted -Dr. Juan Jose Hawley performed Open treatment internal fixation right lateral tibial plateau with plates and screws and bone graft, open repair lateral meniscus 11/19/17 - Patient is cleared from surgery standpoint Medications: -Morphine as needed for pain -Constipation protocol in place -Lovenox 40 every 24 hours (3) Sickle cell disease ICD Codes: D57.1 - Sickle-cell disease without crisis Status: Chronic Plan: -Due large lipohemarthrosis on imaging with tachycardia and need of surgical fixation, patient transfused 2 units PRBC with additional units on hold H/H now stable at 6.9/19.3 Supportive transfusions if she develops symptomatic anemia or bleeding Medications: -Tylenol and Benadryl ordered as needed -Continue home hydroxyurea (4) Inverted T wave ICD Codes: R94.31 - Abnormal electrocardiogram [ECG] [EKG] Status: Chronic Plan: -Admission EKG: Sinus tachycardia with a heart rate of 91 bpm. Occasional PVC. Normal intervals. Left ventricular hypertrophy per voltage. Inverted T waves in lateral leads V5 and V6 new from prior EKG. Troponin x 3 wnl -Cardiac telemetry Sinus tachycardia this AM up to 140's, repeat EKG unchanged from EKG on admission (5) Seizure disorder ICD Codes: G40.909 - Seizure disorder Status: Chronic Plan: Medications: -Continue Keppra 1g BID (6) Hypertension ICD Codes: I10 - Essential (primary) hypertension Status: Chronic Plan: -Continue home lisinopril -Clonidine when necessary for blood pressure greater than 180/110 (7) DVT prophylaxis Status: Acute Plan: -Lovenox 40 mg daily -SCD to nonoperative leg (8) Nutrition, metabolism, and development symptoms ICD Codes: R63.8 - Symptoms concerning nutrition, metabolism, and development Status: Acute Plan: -Fluids: none -Diet: Regular diet -Electrolytes: wnl; continue to monitor -Prophylaxis: Albuterol when necessary for shortness of breath, constipation protocol in place, morphine when necessary for pain, Zofran when necessary for nausea/vomiting, clonidine when necessary for blood pressure greater than 180/ 110 (9) Underweight ICD Codes: R63.6 - Underweight Status: Chronic Plan: Ensure shakes with meals (Fatuma Lyn MD, R3) Problem Qualifiers (1) Tibial plateau fracture, right: Qualified Codes: S82.141A - Displaced bicondylar fracture of right tibia, initial encounter for closed fracture (2) Sickle cell disease: Qualified Codes: D57.1 - Sickle-cell disease without crisis (3) Hypertension: Qualified Codes: I10 - Essential (primary) hypertension Fatuma Lyn MD, R3 Nov 23, 2017 11:28 Katheryn Henry MD Nov 23, 2017 16:02
[2017-11-23] MEDS ORDERED: LEVO750T3 PO (11:29)
[2017-11-23] MEDS ORDERED: ENOX40P SQ (13:06)
--- NOTE | 2017-11-23 13:06 | HHI.DCPOC ---
Discharge Care Plan Diagnosis: (1) Tibial plateau fracture, right (2) HCAP (healthcare-associated pneumonia) Goals to Promote Your Health * To prevent worsening of your condition and complications * To maintain your health at the optimal level Directions to Meet Your Goals Take your medications as prescribed Follow your dietary instruction Follow activity as directed Keep your appointments as scheduled Take your immunizations and boosters as scheduled If your symptoms worsen call your PCP, if no PCP go to Urgent Care Center or Emergency Room Smoking is Dangerous to Your Health. Avoid second hand smoke Call the 24-hour hour crisis hotline for domestic abuse at Fatuma Lyn MD, R3 Nov 23, 2017 13:06
[2017-11-23] MEDS ORDERED: ACETAMINOPHEN 325 MG TAB PO PRN (14:30)
[2017-11-23] MEDS ORDERED: SODIUM CHLOR 0.9% 250 ML INJ 250 ML IV ONE (14:30)
[2017-11-23] MEDS: ENOXAPARIN SODIUM 40 MG/0.4 ML SYRINGE SQ SCH (14:36)
[2017-11-23] MEDS ORDERED: METOPROLOL TARTRATE 5 MG/5 ML VIAL IV PUSH SCH ×2 (17:15→17:30)
[2017-11-23] MEDS ORDERED: ASPIRIN 325 MG TAB PO ONE (17:45)
[2017-11-23] MEDS ORDERED: NITROGLYCERIN 0.4 MG SL 25 TABS/BTL SL PRN (17:45)
[2017-11-23 17:49] LABS: HEMOGLOBIN 7.3 GM/DL (11.6-15.3); MEAN CELL VOLUME 94.2 FL (80.0-100.0); MEAN CORPUSCULAR HEMOGLOBIN 33.4 PG (27.0-34.0); MEAN CORPUSCULAR HGB CONC 35.5 % (32.0-36.0); MEAN PLATELET VOLUME 7.6 FL (7.0-11.0); PLATELET COUNT 231 TH/MM3 (150-450); RED CELL DISTRIBUTION WIDTH 19.7 % (11.6-17.2)
[2017-11-23 18:00] LABS: HEMATOCRIT 20.7 % (35.0-46.0)
[2017-11-24] VITALS (7 sets, daily range): BP systolic 125–144; BP diastolic 55–73; PULSE 61–85; RESP 18–19; TEMP 96.2–98.9; O2SAT 97–100
[2017-11-24] MEDS: ACETAMINOPHEN/HYDROcodone 325 MG/10 MG TAB PO PRN ×4 (01:15→21:13)
[2017-11-24] MEDS: LEVOFLOXACIN 750 MG TAB PO SCH (05:28)
[2017-11-24] MEDS: DOCUSATE SODIUM 50 MG/SENNA 8.6 MG TAB PO SCH ×2 (08:44→21:14)
[2017-11-24] MEDS: CALCIUM/VITAMIN D 250 MG/125 U TAB PO SCH ×3 (08:44→16:45)
[2017-11-24] MEDS: LISINOPRIL 10 MG TAB PO SCH (08:44)
[2017-11-24] MEDS: HYDROXYUREA 500 MG CAP PO SCH (08:44)
[2017-11-24] MEDS: levETIRAcetam 500 MG TAB PO SCH ×2 (08:44→21:14)
[2017-11-24] MEDS: MULTIVITAMINS/MINERALS THERAPEUTIC TAB PO SCH (08:45)
[2017-11-24] MEDS: SODIUM CHLORIDE 0.9% FLUSH 10 ML FLUSH IV FLUSH SCH ×2 (08:45→21:14)
--- NOTE | 2017-11-24 08:59 | PD.CONS ---
HPI Service cardiology Consult Requested By Reason for Consult chest pain Primary Care Physician Fatuma Fuller , R3 MD [place] History of Present Illness 52 yo AAF with no prior cardiac history, sickle cell anemia, seizure disorder, HTN and developmental disability who presented on 11/18/17 after a fall injuring her R knee. She had sustained a tibial plateau fracture with surgical repair on 11/19. She was diagnosed with pneumonia on 11/23 and complained of left-sided chest pain intermittently overnight. Telemetry shows periods of sinus tachycardia yesterday. Nitro was given by overnight RN but it is unclear whether this gave her relief. Patient is not a good historian and mother offers most of her history. EKG upon admission showed precordial T wave inversions; study performed yesterday showed this abnormality was no longer present. Troponin level thus far have been normal. Echo shows EF 50% with mild LVH. CT of chest shows evidence of heart failure but no P.E. (Sakina Talley) Review of Systems Consitutional: DENIES: Chills, Weight gain, Weight loss Respiratory: DENIES: Cough, Snoring, Shortness of breath, Wheezing, Sputum production Cardiovascular: COMPLAINS OF: Tachycardia, DENIES: Chest pain, Palpitations, Syncope Gastrointestinal: DENIES: Nausea, Vomiting, Change in bowel habits, Reflux, Bloody stools, Melena (Sakina Talley) Past Family Social History Allergies: Coded Allergies: erythromycin base (Unverified Allergy, Severe, 11/18/17) Uncoded Allergies: MYCINS (Allergy, Severe, EDEMA, 09/26/13) Past Medical History Followed by Dr. Kelly (hematology) for sickle cell, Dr. Lopes with Neurology Developmental Delay sickle cell anemia - last transfusion 3 weeks ago, transfusion 2x a year seizure--2013--on Keppra 500 BID - last seizure >1 year ago Past Surgical History Cholecystectomy Reported Medications Reported Meds & Active Scripts Active Lovenox Inj (Enoxaparin Sodium) 40 Mg/0.4 Ml Syr 40 Mg SQ Q24H Levofloxacin 750 Mg Tablet 750 Mg PO DAILY Hydrocodone-Acetamin 10-325 mg (Hydrocodone/Acetaminophen) 10 Mg-325 Mg Tablet 1 Tab PO Q6H PRN Lisinopril 10 Mg Tab 10 Mg PO DAILY Reported Furosemide 20 Mg Tab 20 Mg PO DAILY Potassium Chloride ER (Potassium Chloride) 20 Meq Tab 20 Meq PO DAILY Tramadol (Tramadol HCl) 50 Mg Tab 50 Mg PO Q4H PRN Hydrea (Hydroxyurea) 500 Mg Cap 500 Mg PO DAILY Keppra (Levetiracetam) 500 Mg Tab 500 Mg PO BID Active Ordered Medications Current Medications Medications (Trade) Dose Ordered Sig/Zuri Route Start Time Stop Time Status Last Admin (Prinivil) 10 mg DAILY PO 11/19/17 09:00 11/23/17 08:53 (Hydrea) 500 mg DAILY PO 11/18/17 20:00 11/23/17 08:54 (NS Flush) 2 ml UNSCH PRN IV FLUSH 11/18/17 20:30 11/20/17 00:29 (NS Flush) 2 ml BID IV FLUSH 11/18/17 21:00 11/23/17 22:35 (Tylenol) 650 mg Q4H PRN PO 11/18/17 20:30 (Benadryl Inj) 25 mg Q4H PRN IV PUSH 11/18/17 20:30 (Milk Of Magnesia Liq) 30 ml Q12H PRN PO 11/18/17 20:30 (Senokot) 17.2 mg Q12H PRN PO 11/18/17 20:30 (Dulcolax Supp) 10 mg DAILY PRN RECTAL 11/18/17 20:30 (Lactulose Liq) 30 ml DAILY PRN PO 11/18/17 20:30 11/20/17 19:23 (Benadryl) 25 mg Q4H PRN PO 11/18/17 22:00 (Albuterol Neb) 2.5 mg Q2HR NEB PRN INH 11/18/17 22:30 (Catapres) 0.1 mg Q6H PRN PO 11/19/17 01:45 (Pilar-Colace) 1 tab BID PO 11/19/17 21:00 11/23/17 22:18 ([place] 10-325 Mg) 1 tab Q6H PRN PO 11/19/17 18:00 11/22/17 03:48 ([place] 10-325 Mg) 2 tab Q6H PRN PO 11/19/17 18:00 11/24/17 01:15 (Zofran Inj) 4 mg Q4H PRN IVP 11/19/17 18:00 11/20/17 04:37 (Oscal-D 250-125) 250 mg TID PO 11/19/17 18:00 11/23/17 17:47 (Theragran M Tab) 1 tab DAILY PO 11/20/17 09:00 11/23/17 08:53 (Benadryl) 25 mg Q6H PRN PO 11/19/17 18:00 (Duoneb Neb) 1 ampule Q4HR NEB PRN INH 11/21/17 12:30 (Lovenox Inj) 40 mg Q24H SQ 11/21/17 16:00 11/23/17 14:36 (Keppra) 1,000 mg BID PO 11/21/17 21:00 11/23/17 22:18 (Levaquin) 750 mg Q24H PO 11/23/17 06:00 11/24/17 05:28 (Lopressor Inj) 5 mg ONCE IV PUSH 11/23/17 17:30 11/24/17 17:29 (Nitrostat Sl) 0.4 mg Q5M PRN SL 11/23/17 17:45 11/23/17 17:47 Family History Mother - DM, HTN, TIA Father - Siblings - DM Social History No t/e/d. Pt lives with mother who cares for her. Pt works at [employer] daily. Health Maintenance: reported menopause age 48, off Depo declined pelvic Had colonoscopy at 48 yo was wnl per patient mother, next one in 10 years Mammogram December 2016, wnl Flu shot August 2015 (Sakina Talley) Physical Exam Vital Signs Vital Signs Date Time Temp Pulse Resp B/P (MAP) Pulse Ox O2 Delivery O2 Flow Rate FiO2 11/24/17 04:30 97.3 74 18 141/71 (94) 97 11/24/17 00:36 97.3 61 19 144/64 (90) 97 11/23/17 20:00 16 11/23/17 19:38 97.3 80 19 134/62 (86) 98 11/23/17 18:00 95 Nasal Cannula 2.00 11/23/17 17:52 18 11/23/17 17:03 102 18 113/66 (82) 95 11/23/17 16:00 96.7 88 18 103/69 (80) 97 11/23/17 12:00 98.6 98 16 128/69 (88) 98 Physical Exam GENERAL: SKIN: Warm and dry. HEAD: Atraumatic. Normocephalic. EYES: Pupils equal and round. No scleral icterus. No injection or drainage. ENT: No nasal bleeding or discharge. NECK: Trachea midline. No JVD. CARDIOVASCULAR: Regular rate and rhythm. no murmurs RESPIRATORY: No accessory muscle use. Clear to auscultation. Breath sounds equal bilaterally. GASTROINTESTINAL: Abdomen soft, non-tender, nondistended. Hepatic and splenic margins not palpable. MUSCULOSKELETAL: Extremities without clubbing, cyanosis, or edema. R knee in immoblizer NEUROLOGICAL: Awake and alert. No obvious cranial nerve deficits. Normal speech. PSYCHIATRIC: Appropriate mood and affect; insight and judgment normal. Laboratory Laboratory Tests Test 11/23/17 17:30 11/24/17 07:43 White Blood Count 6.0 Red Blood Count 2.20 Hemoglobin 7.3 Hematocrit 20.7 Mean Corpuscular Volume 94.2 Mean Corpuscular Hemoglobin 33.4 Mean Corpuscular Hemoglobin Concent 35.5 Red Cell Distribution Width 19.7 Platelet Count 231 Mean Platelet Volume 7.6 Total Creatine Kinase 82 Troponin I LESS THAN 0.02 Date/Time Source Procedure Growth Status 11/22/17 06:53 Blood Peripheral Aerobic Blood Culture - Preliminary NO GROWTH IN 1 DAY Resulted 11/22/17 06:53 Blood Peripheral Anaerobic Blood Culture - Preliminary NO GROWTH IN 1 DAY Resulted 11/22/17 03:55 Nasal Washing Influenza Types A,B Antigen (KRISTEN) Pending Ordered 11/21/17 17:30 Urine Random Urine Legionella Antigen - Final PRESUMPTIVE NEGATIVE FOR LEGIONELLA P... Complete 11/21/17 17:30 Urine Random Urine Streptococcus pneumoniae Antigen (M - Final PRESUMPTIVE NEGATIVE FOR STREPTOCOCCU... Complete (Sakina Talley) Result Diagram: 11/23/17 1730 11/22/17 0653 Assessment and Plan Problem List: (1) Tachycardia ICD Codes: R00.0 - Tachycardia, unspecified Status: Resolved (2) Inverted T wave ICD Codes: R94.31 - Abnormal electrocardiogram [ECG] [EKG] Status: Chronic (3) Chest pain ICD Codes: R07.9 - Chest pain Status: Acute Assessment and Plan 52 yo AAF with no prior cardiac history, sickle cell anemia, seizure disorder, HTN and developmental disability who presented on 11/18/17 after a fall injuring her R knee. She had sustained a tibial plateau fracture with surgical repair on 11/19. She was diagnosed with pneumonia on 11/23 and complained of left-sided chest pain intermittently overnight. Telemetry shows periods of sinus tachycardia yesterday. Nitro was given by overnight RN but it is unclear whether this gave her relief. Patient is not a good historian and mother offers most of her history. chest pain- atypical and reproducible to anterior left chest wall on exam. unclear whether nitro offered her relief overnight. EKG yesterday showed resolution of precordial T wave changes initially seen on admission will repeat troponin and EKG echo shows mild LVH with EF 50% BP and heart rate appear to be fairly stable overnight consider addition of diuretic, bb PNA- abx (Sakina Talley) Assessment and Plan noncardiac chest pain gentle diuresis call with questions will sign off (Rocael Esteves MD) Problem Qualifiers (1) Chest pain: Qualified Codes: R07.89 - Other chest pain Sakina Talley Nov 24, 2017 08:59 Rocael Esteves MD Nov 24, 2017 13:17
--- NOTE | 2017-11-24 09:15 | RADRPT ---
EXAM DATE/TIME: 11/24/2017 08:48 [facility] COMPARISON: CHEST SINGLE AP, March 17, 2017, 22:25. INDICATIONS : Chest pain. MEDICAL HISTORY : Hypertension. Seizures. SURGICAL HISTORY : Cholecystectomy. Tubal ligation. ENCOUNTER: Subsequent ACUITY: 4 - 6 days PAIN SCORE: 3/10 LOCATION: Bilateral chest FINDINGS: Compensated cardiomegaly without failure. Consolidative changes left base Atelectatic changes right base The portion of the bony skeleton visualized is unremarkable. CONCLUSION: Compensated cardiomegaly with consolidative changes right base. Peter Weiss MD FACR on November 24, 2017 at 9:12 Board Certified Radiologist. This report was verified electronically.
--- NOTE | 2017-11-24 10:38 | HHI.FPPN ---
Subjective Remarks Per mother, patient had a restless night last night. At times, she would have tachycardia up to the 120's-130's that seemed to correlate with her reported chest pain. A Troponin was negative and her EKG showed sinus tachycardia. She received a dose of sublingual nitro and aspirin and did not complain of any additional chest pain during the night. Her chest pain seemed to completely resolve after receiving a dose of nitro. Last night, patient's mother was also concerned that she was exhibiting odd behavior by making odd movements with her hands and talking as if she was having hallucinations. Her mother was concerned that she might be having seizures or that she was experiencing side effects from her pain medication. Of note, she hadn't been getting her full dose of her seizure medication during the first 2 days of hospitalization and her initial keppra level was low. Vitals were stable overnight and patient remained afebrile. She is doing well this morning. She continues to have pain in her leg, but per mom, this seems to be well controlled with the pain medication. (Fatuma Lyn MD, R3) Objective Vitals Vital Signs Date Time Temp Pulse Resp B/P (MAP) Pulse Ox O2 Delivery O2 Flow Rate FiO2 11/24/17 08:00 97.5 85 18 134/62 (86) 98 11/24/17 04:30 97.3 74 18 141/71 (94) 97 11/24/17 00:36 97.3 61 19 144/64 (90) 97 11/23/17 20:00 16 11/23/17 19:38 97.3 80 19 134/62 (86) 98 11/23/17 18:00 95 Nasal Cannula 2.00 11/23/17 17:52 18 11/23/17 17:03 102 18 113/66 (82) 95 11/23/17 16:00 96.7 88 18 103/69 (80) 97 11/23/17 12:00 98.6 98 16 128/69 (88) 98 I/O 11/23/17 11/23/17 11/23/17 11/24/17 11/24/17 11/24/17 07:00 15:00 23:00 07:00 15:00 23:00 Intake Total 600 ml 480 ml 480 ml Balance 600 ml 480 ml 480 ml Intake Oral 600 ml 480 ml 480 ml # Voids 2 3 4 5 # Bowel Movements 1 0 0 0 (Fatuma Lyn MD, R3) Result Diagram: 11/23/17 1730 11/22/17 0653 Imaging Last Impressions Chest X-Ray 11/24/17 0000 Signed Impressions: Service Date/Time: Friday, November 24, 2017 08:48 - CONCLUSION: Compensated cardiomegaly with consolidative changes right base. Peter Weiss MD FACR CT Angiography 11/21/17 0000 Signed Impressions: Service Date/Time: Tuesday, November 21, 2017 10:56 - CONCLUSION: 1. No evidence of PE. 2. Findings are consistent with congestive heart failure and pulmonary hypertension. Bilateral basilar airspace consolidation.. Consuelo Presley MD Tibia/Fibula X-Ray 11/19/17 0000 Signed Impressions: Service Date/Time: Sunday, November 19, 2017 16:33 - CONCLUSION: Screw and plate fixation of the lateral tibial plateau fracture. Normal alignment. No acute complication demonstrated. Suhail Alberto MD Lower Extremity CT 11/18/17 0000 Signed Impressions: Service Date/Time: November 19:00 - CONCLUSION: Depressed lateral tibial plateau fracture as above. Suhail Alberto MD Knee X-Ray 11/18/17 0000 Signed Impressions: Service Date/Time: November 17:46 - CONCLUSION: Depressed/downsloping lateral tibial plateau fracture with a large joint effusion. Suhail Alberto MD Objective Remarks GENERAL: thin pleasant female resting comfortably in bed. Mother at bedside. SKIN: Warm and clammy. No rash. HEENT: Atraumatic, normocephalic with extraocular motions intact. No bleeding or nasal discharge from the nares. CARDIOVASCULAR: Tachycardic rate with regular rhythm. RESPIRATORY: Clear to auscultation bilaterally with no crackles, wheezes, or rhonchi. Breathing comfortably GASTROINTESTINAL: Abdomen soft and nondistended MUSCULOSKELETAL: No cyanosis or edema. Right lower extremity: Right lower extremity currently wrapped in Stefan bandage in immobilizer brace. Sensation intact above and below wrap. Able to move all 5 digits. NEURO/PSYCH: Afocal. Awake, alert, and oriented x3. Patient with limited participation in history due to mental delay. (Fatuma Lyn MD, R3) A/P Assessment and Plan Ms. Hassan is a 52-year-old female who presented after a fall with right lower extremity pain found to have right depressed lateral tibial plateau fracture. S/ P surgery 11/19/17. On 11/23, she was diagnosed with pneumonia and started on antibiotics. Overnight, she developed left sided chest pain. Discharge Planning Anticipate discharge to SNF today or tomorrow. (Fatuma Lyn MD, R3) Attending Attestation Patient seen and examined. Case reviewed and discussed with the resident team. Agree with plan of care as discussed with me and documented in the resident note. Likely non-cardiac chest pain, perhaps some symptomatic SVT. Rate controlled on B-tommie, might benefit from further cardiac evaluation as an outpatient. EEG was normal and vitals are stable. She is ready for DC pending placement. (Katheryn Henry MD) Problem List: (1) Chest pain ICD Codes: R07.9 - Chest pain Status: Acute Plan: New onset left sided chest pain overnight. 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 Cardiac enzymes, EKG negative for AR. Pulmonary CTA negative for PE, but did show cardiac heart failure, pulmonary hypertension, and bibasilar consolidation. s/p IV cefepime 11/21-11/22, transitioned to PO 750mg Levofloxacin that she will need to continue for total course of 7 days (3) Tibial plateau fracture, right ICD Codes: S82.141A - Displaced bicondylar fracture of right tibia, initial encounter for closed fracture Status: Resolved Plan: -Knee x-ray: Right depressed/downsloping lateral tibial plateau fracture with large joint effusion. -Right knee CT: Acute lateral tibial plateau fracture with up to 8.5 mm of depression noted. Most of the depression involves the central to lateral weightbearing surface. Depression is fairly smooth/gradual without focal areas of abrupt step-off seen. No intra-articular osteochondral bodies. -Chest x-ray: Negative for acute process -Incentive spirometry -Orthopedic surgery consulted -Dr. Juan Jose Hawley performed Open treatment internal fixation right lateral tibial plateau with plates and screws and bone graft, open repair lateral meniscus 11/19/17 - Patient is cleared from surgery standpoint Medications: -Morphine as needed for pain -Constipation protocol in place -Lovenox 40 every 24 hours (4) Sickle cell disease ICD Codes: D57.1 - Sickle-cell disease without crisis Status: Chronic Plan: -Due large lipohemarthrosis on imaging with tachycardia and need of surgical fixation, patient transfused 2 units PRBC with additional units on hold H/H now stable at 6.9/19.3 Supportive transfusions if she develops symptomatic anemia or bleeding Medications: -Tylenol and Benadryl ordered as needed -Continue home hydroxyurea (5) Seizure disorder ICD Codes: G40.909 - Seizure disorder Status: Chronic Plan: Medications: -Continue Keppra 1g BID EEG pending to evaluate for seizure activity (6) Hypertension ICD Codes: I10 - Essential (primary) hypertension Status: Chronic Plan: -Continue home lisinopril -Clonidine when necessary for blood pressure greater than 180/110 (7) DVT prophylaxis Status: Acute Plan: -Lovenox 40 mg daily -SCD to nonoperative leg (8) Nutrition, metabolism, and development symptoms ICD Codes: R63.8 - Symptoms concerning nutrition, metabolism, and development Status: Acute Plan: -Fluids: none -Diet: Regular diet -Electrolytes: wnl; continue to monitor -Prophylaxis: Albuterol when necessary for shortness of breath, constipation protocol in place, morphine when necessary for pain, Zofran when necessary for nausea/vomiting, clonidine when necessary for blood pressure greater than 180/ 110 (9) Underweight ICD Codes: R63.6 - Underweight Status: Chronic Plan: Ensure shakes with meals (Fatuma Lyn MD, R3) Problem Qualifiers (1) Chest pain: Qualified Codes: R07.89 - Other chest pain (2) Tibial plateau fracture, right: Qualified Codes: S82.141A - Displaced bicondylar fracture of right tibia, initial encounter for closed fracture (3) Sickle cell disease: Qualified Codes: D57.1 - Sickle-cell disease without crisis (4) Hypertension: Qualified Codes: I10 - Essential (primary) hypertension Fatuma Lyn MD, R3 Nov 24, 2017 10:38 Katheryn Henry MD Nov 24, 2017 15:52
[2017-11-24] MEDS ORDERED: PILL SPLITTER OTHER PRN (11:30)
[2017-11-24] MEDS: METOPROLOL TARTRATE 25 MG TAB PO SCH ×2 (12:09→21:14)
--- NOTE | 2017-11-24 12:43 | PD.ORT.PN ---
Subjective Subjective Remarks She answers questions intermittently. She states her leg hurts. She denies any other interval changes. Her mother states she has been compliant with her splint. Objective Vitals Vital Signs Date Time Temp Pulse Resp B/P (MAP) Pulse Ox O2 Delivery O2 Flow Rate FiO2 11/24/17 12:00 96.2 79 18 125/55 (78) 100 11/24/17 08:00 97.5 85 18 134/62 (86) 98 11/24/17 04:30 97.3 74 18 141/71 (94) 97 11/24/17 00:36 97.3 61 19 144/64 (90) 97 11/23/17 20:00 16 11/23/17 19:38 97.3 80 19 134/62 (86) 98 11/23/17 18:00 95 Nasal Cannula 2.00 11/23/17 17:52 18 11/23/17 17:03 102 18 113/66 (82) 95 11/23/17 16:00 96.7 88 18 103/69 (80) 97 I/O 11/23/17 11/23/17 11/23/17 11/24/17 11/24/17 11/24/17 07:00 15:00 23:00 07:00 15:00 23:00 Intake Total 600 ml 480 ml 480 ml Balance 600 ml 480 ml 480 ml Intake Oral 600 ml 480 ml 480 ml # Voids 2 3 4 5 # Bowel Movements 1 0 0 0 Result Diagram: 11/23/17 1730 11/22/17 0653 Imaging Last 24 hours Impressions Chest X-Ray 11/24/17 0000 Signed Impressions: Service Date/Time: Friday, November 24, 2017 08:48 - CONCLUSION: Compensated cardiomegaly with consolidative changes right base. Peter Weiss MD FACR Objective Remarks Laying in bed Mother at bedside NAD Left Knee Dressing dry/intact, mild swelling, CKS in place, no erythema No calf tenderness, Negative Homans sign, Motor and sensation normal Assessment & Plan Ortho Post Op Day #: 5 Problem List: Assessment and Plan Depressed right lateral tibial plateau fracture. Osteopenia/osteoporosis. History of sickle cell anemia. Developmental delay. SURGERY: ORIF lateral tibial plateau with bone grafting and lateral plate: POD # 5 PLAN: Knee immobilizer full-time except during physical therapy. Full range of motion in PT Nonweightbearing. No dressing change. Hill for pain control. Lovenox 40 milligram daily, per Dr. Doan recommendation Discharge to SNF when medically clear Hemoglobin 7.3 today. History of sickle cell anemia. Will defer to medical with regard to treatment Follow-up in 2 weeks Will follow peripherally Nneka Quick Nov 24, 2017 12:43
[2017-11-24 13:25] LABS: HEMATOCRIT 21.6 % (35.0-46.0); HEMOGLOBIN 7.7 GM/DL (11.6-15.3); MEAN CELL VOLUME 94.8 FL (80.0-100.0); MEAN CORPUSCULAR HEMOGLOBIN 33.8 PG (27.0-34.0); MEAN CORPUSCULAR HGB CONC 35.6 % (32.0-36.0); MEAN PLATELET VOLUME 8.1 FL (7.0-11.0); PLATELET COUNT 238 TH/MM3 (150-450); RED BLOOD COUNT 2.27 MIL/MM3 (4.00-5.30); RED CELL DISTRIBUTION WIDTH 19.4 % (11.6-17.2); WHITE BLOOD COUNT 5.8 TH/MM3 (4.0-11.0)
[2017-11-24 13:48] LABS: ALKALINE PHOSPHATASE 175 U/L (45-117); ALT (GPT) 28 U/L (10-53); AST (GOT) 52 U/L (15-37); BICARBONATE 24.5 MEQ/L (21.0-32.0); BLOOD UREA NITROGEN 27 MG/DL (7-18); CALCIUM 8.9 MG/DL (8.5-10.1); CHLORIDE 110 MEQ/L (98-107); CREATININE 0.76 MG/DL (0.50-1.00); GLOMERULAR FILTRATION RATE 96 ML/MIN (>89); GLUCOSE,RANDOM 125 MG/DL (74-106); SODIUM (NA) 144 MEQ/L (136-145); TOTAL BILIRUBIN ADULT 1.5 MG/DL (0.2-1.0); TOTAL PROTEIN 7.6 GM/DL (6.4-8.2)
--- NOTE | 2017-11-24 15:40 | MG ---
cc: Fredi Garcia MD, PhD TEST NUMBER: [id number] TECHNIQUE: 17-channel EEG. DESCRIPTION: The background rhythm reveals initially some mild slowing in the theta range roughly 6 Hz, probably related to drowsiness. Later, there is a normal alpha rhythm with a frequency of 8 Hz. Amplitude is 10-20 microvolts. Rare muscle artifact is identified. No lateralizing features are identified. There is some sharp activity in the temporal area, but this is most likely related to muscle artifact. I do not see any epileptiform discharges. No lateralizing features are identified. There does appear to be normal sleep activities as well in terms of sleep spindles and slowing in the theta frequency. Hyperventilation was not performed. Photic results in a normal driving response. INTERPRETATION: This is a normal EEG. Fredi Garcia MD, PhD JERMAN/TL , 03:23 PM , 03:38 PM
[2017-11-24] MEDS: ENOXAPARIN SODIUM 40 MG/0.4 ML SYRINGE SQ SCH (16:45)
--- NOTE | 2017-11-24 20:02 | EKG ---
Date Performed: 11/24/2017 Time Performed: 10:27:52 PTAGE: 52 years EKG: ECTOPIC ATRIAL RHYTHM WITH OCCASIONAL SUPRAVENTRICULAR PREMATURE COMPLEXES LEFT ATRIAL ENLA RGEMENT NONSPECIFIC T-WAVE ABNORMALITY ABNORMAL ECG PREVIOUS TRACING : 11/23/2017 17.23 Since the previous tracing, no significant change noted DOCTOR: Kushal Gorman Interpretating Date/Time 11/24/2017 20:01:07
--- NOTE | 2017-11-24 20:41 | EKG ---
Date Performed: 11/23/2017 Time Performed: 17:23:13 PTAGE: 52 years EKG: SINUS TACHYCARDIA WITH OCCASIONAL SUPRAVENTRICULAR PREMATURE COMPLEXES NONSPECIFIC T-WAVE A BNORMALITY ABNORMAL RHYTHM ECG PREVIOUS TRACING : 11/21/2017 10.03 Since the previous tracing, no significant change noted DOCTOR: Kushal Gorman Interpretating Date/Time 11/24/2017 20:40:43
[2017-11-25] VITALS (9 sets, daily range): BP systolic 122–149; BP diastolic 59–85; PULSE 66–112; RESP 17–19; TEMP 95.7–98.2; O2SAT 94–97
[2017-11-25] MEDS: ACETAMINOPHEN/HYDROcodone 325 MG/10 MG TAB PO PRN ×3 (01:42→12:04)
[2017-11-25] MEDS: LEVOFLOXACIN 750 MG TAB PO SCH (05:57)
[2017-11-25] MEDS: levETIRAcetam 500 MG TAB PO SCH (08:23)
[2017-11-25] MEDS: DOCUSATE SODIUM 50 MG/SENNA 8.6 MG TAB PO SCH (08:24)
[2017-11-25] MEDS: METOPROLOL TARTRATE 25 MG TAB PO SCH (08:24)
[2017-11-25] MEDS: LISINOPRIL 10 MG TAB PO SCH (08:24)
[2017-11-25] MEDS: CALCIUM/VITAMIN D 250 MG/125 U TAB PO SCH ×2 (08:24→12:02)
[2017-11-25] MEDS: MULTIVITAMINS/MINERALS THERAPEUTIC TAB PO SCH (08:24)
[2017-11-25] MEDS: HYDROXYUREA 500 MG CAP PO SCH (08:25)
[2017-11-25] MEDS: SODIUM CHLORIDE 0.9% FLUSH 10 ML FLUSH IV FLUSH SCH (08:29)
--- NOTE | 2017-11-25 14:20 | HHI.FPPN ---
Subjective Remarks No acute issues overnight. Vitals are stable, patient remains afebrile. She continues to have pain of her right knee. She is tolerating PO, voiding and stooling regularly. She denies any chest pain, shortness of breath, fever,chills , nausea or vomiting. She has been more talkative than usual for the past day. (Fatuma Lyn MD, R3) Objective Vitals Vital Signs Date Time Temp Pulse Resp B/P (MAP) Pulse Ox O2 Delivery O2 Flow Rate FiO2 11/25/17 12:06 95.7 100 17 122/85 (97) 96 11/25/17 12:06 Room Air 11/25/17 08:37 Room Air 11/25/17 08:33 Room Air 11/25/17 08:15 75 11/25/17 08:00 98.0 80 17 137/66 (89) 96 11/25/17 04:10 66 11/25/17 03:16 98.2 75 18 144/79 (100) 97 11/25/17 01:45 98.2 88 18 149/70 (96) 96 11/25/17 00:12 97.8 73 19 137/63 (87) 96 11/25/17 00:00 77 11/24/17 21:50 Nasal Cannula 2.00 11/24/17 21:15 Nasal Cannula 2.00 11/24/17 21:04 98.9 79 19 135/73 (93) 97 11/24/17 20:00 73 11/24/17 16:00 97.2 73 18 133/62 (85) 100 I/O 11/24/17 11/24/17 11/24/17 11/25/17 11/25/17 11/25/17 06:59 14:59 22:59 06:59 14:59 22:59 Intake Total 480 ml 600 ml 480 ml 360 ml Balance 480 ml 600 ml 480 ml 360 ml Intake Oral 480 ml 600 ml 480 ml 360 ml # Voids 5 4 3 5 # Bowel Movements 0 1 0 0 (Fatuma Lyn MD, R3) Result Diagram: 11/24/17 1108 11/24/17 1108 Imaging Last Impressions Chest X-Ray 11/24/17 0000 Signed Impressions: Service Date/Time: Friday, November 24, 2017 08:48 - CONCLUSION: Compensated cardiomegaly with consolidative changes right base. Peter Weiss MD FACR CT Angiography 11/21/17 0000 Signed Impressions: Service Date/Time: Tuesday, November 21, 2017 10:56 - CONCLUSION: 1. No evidence of PE. 2. Findings are consistent with congestive heart failure and pulmonary hypertension. Bilateral basilar airspace consolidation.. Consuelo Presley MD Tibia/Fibula X-Ray 11/19/17 0000 Signed Impressions: Service Date/Time: Sunday, November 19, 2017 16:33 - CONCLUSION: Screw and plate fixation of the lateral tibial plateau fracture. Normal alignment. No acute complication demonstrated. Suhail Alberto MD Lower Extremity CT 11/18/17 0000 Signed Impressions: Service Date/Time: November 19:00 - CONCLUSION: Depressed lateral tibial plateau fracture as above. Suhail Alberto MD Knee X-Ray 11/18/17 0000 Signed Impressions: Service Date/Time: November 17:46 - CONCLUSION: Depressed/downsloping lateral tibial plateau fracture with a large joint effusion. Suhail Alberto MD Objective Remarks GENERAL: thin pleasant female resting comfortably in bed. Mother at bedside. SKIN: Warm and clammy. No rash. HEENT: Atraumatic, normocephalic with extraocular motions intact. CARDIOVASCULAR: Tachycardic rate with regular rhythm. RESPIRATORY: Clear to auscultation bilaterally with no crackles, wheezes, or rhonchi. Breathing comfortably GASTROINTESTINAL: Abdomen soft and nondistended MUSCULOSKELETAL: No cyanosis or edema. Right lower extremity: Right lower extremity currently wrapped in Stefan bandage in immobilizer brace. Sensation intact above and below wrap. Able to move all 5 digits. NEURO/PSYCH: Afocal. Awake, alert, and oriented x3. Patient with limited participation in history due to mental delay. (Fatuma Lyn MD, R3) A/P Assessment and Plan Ms. Hassan is a 52-year-old female who presented after a fall with right lower extremity pain found to have right depressed lateral tibial plateau fracture. S/ P surgery 11/19/17. On 11/23, she was diagnosed with pneumonia and started on antibiotics. She has clinically improved and is ready for discharge to SNF. Discharge Planning Anticipate discharge to SNF today. (Fatuma Lyn MD, R3) Attending Attestation Patient seen and examined. Case reviewed and discussed with the resident team. Agree with plan of care as discussed with me and documented in the resident note. Patient clinically is well appearing. Exam is at her baseline outside of the right knee. DC to rehab today with fu with ortho and PCP (Katheryn Henry MD) Problem List: (1) Chest pain ICD Codes: R07.9 - Chest pain Status: Resolved Plan: Resolved. 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 Cardiac enzymes, EKG negative for UT. Pulmonary CTA negative for PE, but did show cardiac heart failure, pulmonary hypertension, and bibasilar consolidation. s/p IV cefepime 11/21-11/22, transitioned to PO 750mg Levofloxacin that she will need to continue for total course of 7 days (3) Tibial plateau fracture, right ICD Codes: S82.141A - Displaced bicondylar fracture of right tibia, initial encounter for closed fracture Status: Resolved Plan: -Knee x-ray: Right depressed/downsloping lateral tibial plateau fracture with large joint effusion. -Right knee CT: Acute lateral tibial plateau fracture with up to 8.5 mm of depression noted. Most of the depression involves the central to lateral weightbearing surface. Depression is fairly smooth/gradual without focal areas of abrupt step-off seen. No intra-articular osteochondral bodies. -Chest x-ray: Negative for acute process -Incentive spirometry -Orthopedic surgery consulted- Dr. Juan Jose Hawley performed Open treatment internal fixation right lateral tibial plateau with plates and screws and bone graft, open repair lateral meniscus 11/19/17 - Patient is cleared from surgery standpoint Medications: -Morphine as needed for pain -Constipation protocol in place -Lovenox 40 every 24 hours (4) Sickle cell disease ICD Codes: D57.1 - Sickle-cell disease without crisis Status: Chronic Plan: -s/p 2 units PRBC on admission H/H now stable Medications: -Tylenol and Benadryl ordered as needed -Continue home hydroxyurea (5) Seizure disorder ICD Codes: G40.909 - Seizure disorder Status: Chronic Plan: Medications: -Continue Keppra 1g BID EEG normal (6) Hypertension ICD Codes: I10 - Essential (primary) hypertension Status: Chronic Plan: -Continue home lisinopril -Clonidine when necessary for blood pressure greater than 180/110 (7) DVT prophylaxis Status: Acute Plan: -Lovenox 40 mg daily -SCD to nonoperative leg (8) Nutrition, metabolism, and development symptoms ICD Codes: R63.8 - Symptoms concerning nutrition, metabolism, and development Status: Acute Plan: -Fluids: none -Diet: Regular diet -Electrolytes: wnl; continue to monitor -Prophylaxis: Albuterol when necessary for shortness of breath, constipation protocol in place, morphine when necessary for pain, Zofran when necessary for nausea/vomiting, clonidine when necessary for blood pressure greater than 180/ 110 (9) Underweight ICD Codes: R63.6 - Underweight Status: Chronic Plan: Ensure shakes with meals (Fatuma Lyn MD, R3) Problem Qualifiers (1) Chest pain: Qualified Codes: R07.89 - Other chest pain (2) Tibial plateau fracture, right: Qualified Codes: S82.141A - Displaced bicondylar fracture of right tibia, initial encounter for closed fracture (3) Sickle cell disease: Qualified Codes: D57.1 - Sickle-cell disease without crisis (4) Hypertension: Qualified Codes: I10 - Essential (primary) hypertension Fatuma Lyn MD, R3 Nov 25, 2017 14:19 Katheryn Henry MD Nov 26, 2017 12:56
[2017-11-25] MEDS: ENOXAPARIN SODIUM 40 MG/0.4 ML SYRINGE SQ SCH (15:33)
--- NOTE | 2017-11-29 12:05 | HHI.DS ---
Discharge Summary Admission Date Nov 18, 2017 at 19:19 Discharge Date: Nov 25, 2017 Admitting Diagnosis Right tibial plateau fracture (1) Chest pain Plan: Resolved. 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 Cardiac enzymes, EKG negative for AK. Pulmonary CTA negative for PE, but did show cardiac heart failure, pulmonary hypertension, and bibasilar consolidation. s/p IV cefepime 11/21-11/22, transitioned to PO 750mg Levofloxacin that she will need to continue for total course of 7 days ICD Codes: J18.9 - Pneumonia, unspecified organism Status: Acute (3) Tibial plateau fracture, right Diagnosis: Principal Plan: -Knee x-ray: Right depressed/downsloping lateral tibial plateau fracture with large joint effusion. -Right knee CT: Acute lateral tibial plateau fracture with up to 8.5 mm of depression noted. Most of the depression involves the central to lateral weightbearing surface. Depression is fairly smooth/gradual without focal areas of abrupt step-off seen. No intra-articular osteochondral bodies. -Chest x-ray: Negative for acute process -Incentive spirometry -Orthopedic surgery consulted- Dr. Juan Jose Hawley performed Open treatment internal fixation right lateral tibial plateau with plates and screws and bone graft, open repair lateral meniscus 11/19/17 - Patient is cleared from surgery standpoint Medications: -Morphine as needed for pain -Constipation protocol in place -Lovenox 40 every 24 hours ICD Codes: S82.141A - Displaced bicondylar fracture of right tibia, initial encounter for closed fracture Status: Resolved (4) Sickle cell disease Plan: -s/p 2 units PRBC on admission H/H now stable Medications: -Tylenol and Benadryl ordered as needed -Continue home hydroxyurea ICD Codes: D57.1 - Sickle-cell disease without crisis Status: Chronic (5) Seizure disorder Plan: Medications: -Continue Keppra 1g BID EEG normal ICD Codes: G40.909 - Seizure disorder Status: Chronic (6) Hypertension Plan: -Continue home lisinopril -Clonidine when necessary for blood pressure greater than 180/110 ICD Codes: I10 - Essential (primary) hypertension Status: Chronic (7) DVT prophylaxis Plan: -Lovenox 40 mg daily -SCD to nonoperative leg Status: Acute (8) Nutrition, metabolism, and development symptoms Plan: -Fluids: none -Diet: Regular diet -Electrolytes: wnl; continue to monitor -Prophylaxis: Albuterol when necessary for shortness of breath, constipation protocol in place, morphine when necessary for pain, Zofran when necessary for nausea/vomiting, clonidine when necessary for blood pressure greater than 180/ 110 ICD Codes: R63.8 - Symptoms concerning nutrition, metabolism, and development Status: Acute (9) Underweight Plan: Ensure shakes with meals ICD Codes: R63.6 - Underweight Status: Chronic [facility] Orthopedic surgery, Hematology, Cardiology Brief History On admission: Ms. Hassan is a 52-year-old female presenting after a fall with right lower extremity pain. She is accompanied by her mother who assists with history as the patient is developmentally disabled. Per her report, patient was walking to the bus after [place] the [facility] [place] in the afternoon when she fell to the ground. Patient states she felt immediate 10/10 pain in the right knee. She states that she was able to ambulate immediately after, however was unable to "after a while" due to the pain. The patient was put on the bus by bystander's and was dropped off at her house. She was then transported by vehicle to the ED for further evaluation. Before leaving for the ED, her mother noted that her right knee was swelling, however was not "extremely swollen." Otherwise currently she has no complaints and denies any fevers, chills, shortness of breath, chest pain, NVD, abdominal pain, or calf tenderness. Ms Hassan was found to be anemic which is her norm with sickle cell and was transfused as she has surgery planned for today for her tibial plateau fracture. She has some pain today but otherwise is doing well. Imaging Last Impressions Chest X-Ray 11/24/17 0000 Signed Impressions: Service Date/Time: Friday, November 24, 2017 08:48 - CONCLUSION: Compensated cardiomegaly with consolidative changes right base. Petre Weiss MD FACR CT Angiography 11/21/17 0000 Signed Impressions: Service Date/Time: Tuesday, November 21, 2017 10:56 - CONCLUSION: 1. No evidence of PE. 2. Findings are consistent with congestive heart failure and pulmonary hypertension. Bilateral basilar airspace consolidation.. Consuelo Presley MD Tibia/Fibula X-Ray 11/19/17 0000 Signed Impressions: Service Date/Time: Sunday, November 19, 2017 16:33 - CONCLUSION: Screw and plate fixation of the lateral tibial plateau fracture. Normal alignment. No acute complication demonstrated. Suhail Alberto MD Lower Extremity CT 11/18/17 0000 Signed Impressions: Service Date/Time: November 19:00 - CONCLUSION: Depressed lateral tibial plateau fracture as above. Suhail Alberto MD Knee X-Ray 11/18/17 0000 Signed Impressions: Service Date/Time: November 17:46 - CONCLUSION: Depressed/downsloping lateral tibial plateau fracture with a large joint effusion. Suhail Alberto MD PE at Discharge GENERAL: thin pleasant female resting comfortably in bed. Mother at bedside. SKIN: Warm and clammy. No rash. HEENT: Atraumatic, normocephalic with extraocular motions intact. CARDIOVASCULAR: Tachycardic rate with regular rhythm. RESPIRATORY: Clear to auscultation bilaterally with no crackles, wheezes, or rhonchi. Breathing comfortably GASTROINTESTINAL: Abdomen soft and nondistended MUSCULOSKELETAL: No cyanosis or edema. Right lower extremity: Right lower extremity currently wrapped in Stefan bandage in immobilizer brace. Sensation intact above and below wrap. Able to move all 5 digits. NEURO/PSYCH: Afocal. Awake, alert, and oriented x3. Patient with limited participation in history due to mental delay. Hospital Course Ms. Hassan is a 52-year-old female who presented after a fall with right lower extremity pain found to have right depressed lateral tibial plateau fracture. Due to large lipohemarthrosis on imaging with tachycardia and need of surgical fixation, patient was transfused 2 units PRBC on admission. Orthopedic surgery was consulted and she underwent open internal fixation right lateral tibial plateau with plates and screws and bone graft, open repair of the lateral meniscus on 11/19/17. She tolerated the procedure well. Hospital course was complicated by HCAP diagnosed on 11/21, which was treated with IV cefepime and then transitioned to PO Levaquin. She also experienced chest pain during her hospitalization and had an AK work up which was negative. As part of her evaluation, she had an echocardiogram that was significant for EF 50%, mild concentric LVH, mildly dilated right and left atria, pulmonary arterial pressure 31.5mmHg. This is consistent with Group 5 pulmonary hypertension likely secondary to sickle cell disease. Cardiology was consulted and deemed that the chest pain was not cardiac. She also exhibited odd behavior during her hospitalization, however EEG ruled out seizure activity. She was discharged to rehab with a full-time knee immobilizer except during physical therapy, [place] for pain control, and Lovenox 40mg SQ daily. Pt Condition on Discharge: Stable Discharge Disposition: Discharge to SNF Discharge Instructions DIET: Follow Instructions for: As Tolerated, No Restrictions Additional Diet Instructions: Full ROM with PT Activities you can perform: Non Weight Bearing Follow up Referrals: Hematology - 2 Weeks with Og Kelly MD Orthopedics - 2 Weeks with Juan Jose Fregoso MD PCP Follow-up - 2 Weeks with Fatuma Lyn MD, R3 New Medications: Levofloxacin (Levofloxacin) 750 Mg Tablet 750 MG PO DAILY for Infection, #6 TAB 0 Refills Enoxaparin Inj (Lovenox Inj) 40 Mg/0.4 Ml Syr 40 MG SQ Q24H, #30 INJECTION Hydrocodone/Acetaminophen (Hydrocodone-Acetamin 10-325 mg) 10 Mg-325 Mg Tablet 1 TAB PO Q6H PRN for PAIN, #50 TAB Continued Medications: Furosemide (Furosemide) 20 Mg Tab 20 MG PO DAILY, TAB 0 Refills Hydroxyurea (Hydrea) 500 Mg Cap 500 MG PO DAILY, CAP 0 Refills Levetiracetam (Keppra) 500 Mg Tab 500 MG PO BID for Control Seizures, #60 TAB 0 Refills Lisinopril (Lisinopril) 10 Mg Tab 10 MG PO DAILY, #90 TAB 3 Refills Potassium Chloride ER (Potassium Chloride ER) 20 Meq Tab 20 MEQ PO DAILY for Electrolyte Replacement, TAB 0 Refills Tramadol (Tramadol) 50 Mg Tab 50 MG PO Q4H PRN for PAIN, TAB 0 Refills Fatuma Lyn MD, R3 Nov 29, 2017 12:05
== END 2017-11-25 16:25 | DRG 488 ==
LOC: NEPK 15:55 → NEDA 19:19 → NEDH 11-19 02:08 → N06B 11-19 19:32
PROVIDERS: ADMIT Family Medicine; ATTEND Family Medicine
PROC: 30233N1 Transfusion of Nonautologous Red Blood Cells into Peripheral Vein, Percutaneous Approach (ICD-10-PCS; 2017-11-18)
PROC: 0QSG04Z Reposition Right Tibia with Internal Fixation Device, Open Approach (ICD-10-PCS; 2017-11-19)
PROC: 0QUG0KZ Supplement Right Tibia with Nonautologous Tissue Substitute, Open Approach (ICD-10-PCS; 2017-11-19)
PROC: 0SQC0ZZ Repair Right Knee Joint, Open Approach (ICD-10-PCS; principal; 2017-11-19 16:17)
DX: S82.141A Displaced bicondylar fracture of right tibia, initial encounter for closed fracture (principal); J18.9 Pneumonia, unspecified organism; I27.29 Other secondary pulmonary hypertension; I11.0 Hypertensive heart disease with heart failure; I50.9 Heart failure, unspecified; I47.1 Supraventricular tachycardia; S83.281A Other tear of lateral meniscus, current injury, right knee, initial encounter; D57.1 Sickle-cell disease without crisis; R62.50 Unspecified lack of expected normal physiological development in childhood; I49.3 Ventricular premature depolarization; M81.0 Age-related osteoporosis without current pathological fracture; R63.6 Underweight; R07.89 Other chest pain; Y95 Nosocomial condition; W18.30XA Fall on same level, unspecified, initial encounter; Y93.01 Activity, walking, marching and hiking; Y92.89 Other specified places as the place of occurrence of the external cause; G40.909 Epilepsy, unspecified, not intractable, without status epilepticus; Z83.3 Family history of diabetes mellitus; Z82.49 Family history of ischemic heart disease and other diseases of the circulatory system
CPT/HCPCS: 36430; 71045; 71046; 71275; 73564; 73590; 73700; 76000; 80048; 80053; 80177; 82550; 83880; 84484; 85007; 85014; 85018; 85025; 85027; 85610; 85730; 86850; 86900; 86901; 86920; 87040; 87449; 93005; 93306; 95819; C1713; J0131; J0690; J0692; J1100; J1170; J1580; J1650; J1940; J2270; J2405; J7030; J7050; J7120; L1830; P9016; Q9967

== ENCOUNTER 2017-11-30 17:23 | Emergency (ER) | payer MEDICARE, OTHER ==
[~2017-11-30] VITALS: Ht 165.1 cm; Wt 58.0 kg
[~2017-11-30 17:23] MED LIST changes: +ENOX40P SQ; +FURO20TA PO; +HYDR-3583 PO; +LEVO750T3 PO; +POTA-163 PO
[2017-11-30 17:59] VITALS: BP 129/70; PULSE 97; RESP 20; TEMP 98.1; O2SAT 99
[2017-11-30 18:09] VITALS: BP 129/70; PULSE 97; RESP 20; TEMP 98.1; O2SAT 99
[2017-11-30] MEDS ORDERED: SODIUM CHLORIDE 0.9% FLUSH 10 ML FLUSH IV FLUSH PRN (18:15)
[2017-11-30] MEDS ORDERED: TYLE325T PO (18:19)
--- NOTE | 2017-11-30 18:33 | PD ---
HPI Chief Complaint: Fall Time Seen by Provider: 17:49 Travel History International Travel<30 days: No (UNABLE TO OBTAIN) Contact w/Intl Traveler<30days: No (UNABLE TO OBTAIN) Traveled to known affect area: No (UNABLE TO OBTAIN) History of Present Illness HPI 52 YO developmentally delayed female presents to the ED from [facility] for evaluation after unwitnessed fall last night. Patient is unable to provide much meaningful information. She denies headache, pain. She is alert, looking around, speaking to her mother at bedside. Family at bedside state that they were called and told that she was found sitting beside the bed. Patient recently underwent ORIF of right tibial plateau fracture and this is the reason for her rehabilitation. She normally lives at home with her mother. Mom states that she has had a gradual change in her normal baseline behavior since yesterday. Mom states that she is more demanding of her presence and also seems to be "talking crazy." PFSH Past Medical History Arthritis: No Asthma: No Autoimmune Disease: No Blood Disorders: No Anxiety: Yes Depression: Yes Heart Rhythm Problems: Yes (Murmur) Cancer: No Cardiovascular Problems: Yes High Cholesterol: No Chemotherapy: No Chest Pain: No Congestive Heart Failure: No Cirrhosis: No COPD: No Cerebrovascular Accident: No Developmental Delay: Yes ("BRAIN DAMAGE SINCE 2 YEARS OLD") Diabetes: No Diminished Hearing: No Endocrine: No Gastrointestinal Disorders: Yes GERD: No Genitourinary: Yes Headaches: Yes Hiatal Hernia: No Immune Disorder: No Implanted Vascular Access Dvce: No Kidney Stones: No Musculoskeletal: No Neurologic: Yes Psychiatric: Yes Reproductive: No Respiratory: No Immunizations Current: Yes Migraines: Yes Radiation Therapy: No Renal Failure: No Seizures: Yes (2005 AND 02/14/08) Sickle Cell Disease: Yes Sleep Apnea: No Thyroid Disease: No Ulcer: No Tetanus Vaccination: Unknown PNEUMOCCOCAL Vaccine (Year): 1 ?: Not Menopausal: Yes : 0 Para: 0 Miscarriage: 0 : 0 Tubal Ligation: Yes Past Surgical History Abdominal Surgery: No AICD: No Arteriovenous Shunt: No Cardiac Surgery: No Cholecystectomy: Yes (UNABLE TO VERIFY) Ear Surgery: No Endocrine Surgery: No Eye Surgery: No Genitourinary Surgery: No Gynecologic Surgery: Yes (TUBAL LIGATION) Insulin Pump: No Joint Replacement: No Oral Surgery: No Pacemaker: No Thoracic Surgery: No Other Surgery: Yes (Possible gallbladder) Social History Alcohol Use: No Tobacco Use: No Substance Use: No Allergies-Medications (Allergen,Severity, Reaction): Coded Allergies: erythromycin base (Unverified Allergy, Severe, 11/30/17) Uncoded Allergies: MYCINS (Allergy, Severe, EDEMA, 09/26/13) Reported Meds & Prescriptions Reported Meds & Active Scripts Active Keflex (Cephalexin) 500 Mg Cap 500 Mg PO Q12H 5 Days Lovenox Inj (Enoxaparin Sodium) 40 Mg/0.4 Ml Syr 40 Mg SQ Q24H Levofloxacin 750 Mg Tablet 750 Mg PO DAILY Hydrocodone-Acetamin 10-325 mg (Hydrocodone/Acetaminophen) 10 Mg-325 Mg Tablet 1 Tab PO Q6H PRN Lisinopril 10 Mg Tab 10 Mg PO DAILY Reported Tylenol (Acetaminophen) 325 Mg Tab 650 Mg PO Q4H PRN Furosemide 20 Mg Tab 20 Mg PO DAILY Potassium Chloride ER (Potassium Chloride) 20 Meq Tab 20 Meq PO DAILY Hydrea (Hydroxyurea) 500 Mg Cap 500 Mg PO DAILY Keppra (Levetiracetam) 500 Mg Tab 500 Mg PO BID Review of Systems ROS Limitations: Poor Historian, Other: (developmentally delayed) Except as stated in HPI: all other systems reviewed are Neg Physical Exam Exam Limitations: Poor Historian, Other: (developmentally delayed) Narrative GENERAL: Well-nourished, well-developed -[place] female, sitting up in the stretcher, looking around the room. SKIN: Focused skin assessment warm/dry. HEAD: Normocephalic. No tenderness to palpation of the skull bones. EYES: No scleral icterus. No injection or drainage. PERRLA. NECK: Supple, trachea midline. No JVD or lymphadenopathy. CARDIOVASCULAR: Regular rate and rhythm without murmurs, gallops, or rubs. RESPIRATORY: Breath sounds clear and equal bilaterally. No accessory muscle use. GASTROINTESTINAL: Abdomen soft, non-tender, nondistended. Active bowel sounds. MUSCULOSKELETAL: No cyanosis, or edema. Right leg is in a knee immobilizer. Palpable distal pulses. BACK: Nontender without obvious deformity. No CVA tenderness. Data Data Last Documented VS Vital Signs Date Time Temp Pulse Resp B/P (MAP) Pulse Ox O2 Delivery O2 Flow Rate FiO2 11/30/17 19:37 98.9 92 18 127/59 (81) 100 Room Air Orders Orders Complete Blood Count With Diff (11/30/17 18:07) Comprehensive Metabolic Panel (11/30/17 18:07) Prothrombin Time / Inr (Pt) (11/30/17 18:07) Act Partial Throm Time (Ptt) (11/30/17 18:07) Urinalysis - C+S If Indicated (11/30/17 18:07) Iv Access Insert/Monitor (11/30/17 18:07) Ecg Monitoring (11/30/17 18:07) Oximetry (11/30/17 18:07) Sodium Chloride 0.9% Flush (Ns Flush) (11/30/17 18:15) ^ Straight Catheter (11/30/17 18:31) Knee, Ltd (1 Or 2vws) (11/30/17 18:42) Urine Culture (11/30/17 18:30) Ceftriaxone Inj (Rocephin Inj) (11/30/17 19:45) Ed Discharge Order (11/30/17 20:31) Ct Brain W/O Iv Contrast(Rout) (11/30/17 ) Labs Laboratory Tests Test 11/30/17 18:30 White Blood Count 10.2 TH/MM3 Red Blood Count 2.13 MIL/MM3 Hemoglobin 7.2 GM/DL Hematocrit 20.7 % Mean Corpuscular Volume 97.2 FL Mean Corpuscular Hemoglobin 33.6 PG Mean Corpuscular Hemoglobin Concent 34.6 % Red Cell Distribution Width 21.7 % Platelet Count 392 TH/MM3 Mean Platelet Volume 7.4 FL Neutrophils (%) (Auto) 70.1 % Lymphocytes (%) (Auto) 11.9 % Monocytes (%) (Auto) 14.5 % Eosinophils (%) (Auto) 2.9 % Basophils (%) (Auto) 0.6 % Neutrophils # (Auto) 7.1 TH/MM3 Lymphocytes # (Auto) 1.2 TH/MM3 Monocytes # (Auto) 1.5 TH/MM3 Eosinophils # (Auto) 0.3 TH/MM3 Basophils # (Auto) 0.1 TH/MM3 CBC Comment AUTO DIFF Differential Total Cells Counted 100 Neutrophils % (Manual) 76 % Lymphocytes % 9 % Monocytes % 14 % Eosinophils % 1 % Neutrophils # (Manual) 7.8 TH/MM3 Nucleated Red Blood Cells 13 /100 WBC Differential Comment FINAL DIFF MANUAL Platelet Estimate NORMAL Platelet Morphology Comment NORMAL Polychromasia 3.3 % Sickle Cells 2+ Target Cells 1+ [place] Bodies PRESENT Prothrombin Time 11.3 SEC Prothromb Time International Ratio 1.1 RATIO Activated Partial Thromboplast Time 23.8 SEC Urine Color YELLOW Urine Turbidity CLEAR Urine pH 5.0 Urine Specific [place] 1.009 Urine Protein 30 mg/dL Urine Glucose (UA) NEG mg/dL Urine Ketones NEG mg/dL Urine Occult Blood SMALL Urine Nitrite NEG Urine Bilirubin NEG Urine Urobilinogen LESS THAN 2.0 MG/DL Urine Leukocyte Esterase MOD Urine RBC 1 /hpf Urine WBC 10 /hpf Urine Squamous Epithelial Cells 1 /hpf Microscopic Urinalysis Comment CULTURE INDICATED Blood Urea Nitrogen 23 MG/DL Creatinine 0.95 MG/DL Random Glucose 103 MG/DL Total Protein 7.7 GM/DL Albumin 3.4 GM/DL Calcium Level 8.9 MG/DL Alkaline Phosphatase 148 U/L Aspartate Amino Transf (AST/SGOT) 29 U/L Alanine Aminotransferase (ALT/SGPT) 26 U/L Total Bilirubin 1.9 MG/DL Sodium Level 141 MEQ/L Potassium Level 4.4 MEQ/L Chloride Level 109 MEQ/L Carbon Dioxide Level 23.6 MEQ/L Anion Gap 8 MEQ/L Estimat Glomerular Filtration Rate 74 ML/MIN MDM Medical Decision Making Medical Screen Exam Complete: Yes Emergency Medical Condition: Yes Differential Diagnosis fall versus ICH versus UTI versus other Narrative Course 52 YO developmentally delayed female presents to the ED from [facility] for evaluation after unwitnessed fall last night. Patient denies headache or pain. She is alert, looking around, speaking to her mother at bedside. Family state that they were called and told that the patient was found sitting beside the bed last night. She normally lives at home with her mother. Mom states that she has had a gradual change in her normal baseline behavior since yesterday, states that the patient is "talking crazy." Patient recently underwent ORIF of right tibial plateau fracture and this is the reason for her rehabilitation. Patient is afebrile, pulse 97, BP 129/70 on presentation. On exam this is an alert -[place] female in no acute distress. Alert, no visible signs of trauma. No tenderness to palpation of the skull bones or cervical spine. Chest CTA B. Abdomen soft and nontender. Knee immobilizer in place, palpable distal pulses. IV was established. CBC: WBC 10.2, hemoglobin 7.2. Anemia chronic per record review. INR: 1.1. CMP no concerning abnormalities. UA: 30 protein, small occult blood, moderate leukocyte Estrace, 10 WBCs. Culture pending. X-ray right knee: ORIF CT brain: No acute findings by my read. I discussed the results of the workup with the patient and her family. She is administered 1 g Rocephin IV. She is prescribed Keflex twice a day 5 days. We 'll discharge back to the rehabilitation. The family is agreeable with this plan. They're given instructions to return to the ED if the patient does not return to baseline. The patient is stable and discharged to [facility]. Diagnosis Primary Impression: Urinary tract infection Qualified Codes: N39.0 - Urinary tract infection, site not specified Additional Impression: Fall Qualified Codes: W19.XXXA - Unspecified fall, initial encounter Referrals: Primary Care Physician Additional Instructions: Begin antibiotics today and take them until every pill is gone. Follow up with the orthopedist as planned at previous discharge. Return to the ED for any urgent or emergent medical condition. Med/Other Pt SpecificInfo: Prescription(s) given Scripts Cephalexin (Keflex) 500 Mg Cap 500 MG PO Q12H for Infection for 5 Days, #10 CAP 0 Refills Prov: Marly Wilson MD 11/30/17 Disposition: 03 DISCHARGE TO SNF Condition: Stable Joselin Alonzo Nov 30, 2017 18:33
[2017-11-30 19:18] LABS: BILIRUBIN, URINE NEG (NEG); BLOOD, URINE SMALL (NEG); GLUCOSE,URINE NEG (NEG); KETONE, URINE NEG (NEG); NITRITE,URINE NEG (NEG); SQUAMOUS EPITHELIAL CELL URINE 1 /hpf (0-5); URINE COLOR YELLOW (YELLW/STRAW); URINE LEUKOCYTE ESTERASE MOD (NEG)
[2017-11-30 19:19] LABS: AUTOMATED NEUTROPHIL # 7.1 TH/MM3 (1.8-7.7); BASOPHIL # 0.1 TH/MM3 (0-0.2); BASOPHIL % 0.6 % (0.0-2.0); EOSINOPHIL # 0.3 TH/MM3 (0-0.4); EOSINOPHIL % 2.9 % (0.0-4.0); LYMPH % 11.9 % (9.0-44.0); LYMPHOCYTE # 1.2 TH/MM3 (1.0-4.8); MEAN CELL VOLUME 97.2 FL (80.0-100.0); MEAN CORPUSCULAR HEMOGLOBIN 33.6 PG (27.0-34.0); MEAN CORPUSCULAR HGB CONC 34.6 % (32.0-36.0); MEAN PLATELET VOLUME 7.4 FL (7.0-11.0); MONO % 14.5 % (0.0-8.0); MONOCYTE # 1.5 TH/MM3 (0-0.9); NEUT % 70.1 % (16.0-70.0); PLATELET COUNT 392 TH/MM3 (150-450); RED BLOOD COUNT 2.13 MIL/MM3 (4.00-5.30); RED CELL DISTRIBUTION WIDTH 21.7 % (11.6-17.2); WHITE BLOOD COUNT 10.2 TH/MM3 (4.0-11.0)
[2017-11-30 19:23] LABS: INTERNATIONAL NORMALIZED RATIO 1.1 RATIO; PROTHROMBIN TIME - PATIENT 11.3 SEC (9.8-11.6)
[2017-11-30 19:26] LABS: HEMATOCRIT 20.7 % (35.0-46.0); HEMOGLOBIN 7.2 GM/DL (11.6-15.3)
[2017-11-30 19:30] LABS: ALBUMIN 3.4 GM/DL (3.4-5.0); AST (GOT) 29 U/L (15-37); BICARBONATE 23.6 MEQ/L (21.0-32.0); BLOOD UREA NITROGEN 23 MG/DL (7-18); CALCIUM 8.9 MG/DL (8.5-10.1); CHLORIDE 109 MEQ/L (98-107); CREATININE 0.95 MG/DL (0.50-1.00); GLOMERULAR FILTRATION RATE 74 ML/MIN (>89); GLUCOSE,RANDOM 103 MG/DL (74-106); SODIUM (NA) 141 MEQ/L (136-145)
[2017-11-30 19:31] LABS: ALT (GPT) 26 U/L (10-53)
[2017-11-30 19:34] LABS: ALKALINE PHOSPHATASE 148 U/L (45-117); TOTAL BILIRUBIN ADULT 1.9 MG/DL (0.2-1.0); TOTAL PROTEIN 7.7 GM/DL (6.4-8.2)
[2017-11-30 19:37] VITALS: BP 127/59; PULSE 92; RESP 18; TEMP 98.9; O2SAT 100
--- NOTE | 2017-11-30 19:42 | RADRPT ---
EXAM DATE/TIME: 11/30/2017 18:57 [facility] COMPARISON: KNEE RIGHT COMPLETE (4VWS), November 18, 2017, 17:46. INDICATIONS : Right knee pain after fall out of bed. MEDICAL HISTORY : None. SURGICAL HISTORY : ORIF 4 days ago. ENCOUNTER: Initial ACUITY: 1 day PAIN SCORE: 10/10 LOCATION: Right knee. FINDINGS: There is a surgical plate at the lateral aspect of the proximal tibia secured by multiple screws. The tibial plateau fracture is successfully reduced. Skin leatha are seen laterally. The knee joints ar e normally aligned. A new fracture is not seen. An effusion is not seen. CONCLUSION: Successful ORIF. Suhail Zaldivar MD on November 30, 2017 at 19:39 Board Certified Radiologist. This report was verified electronically.
[2017-11-30] MEDS ORDERED: cefTRIAXone INJ 1,000 MG in SODIUM CHLORIDE 0.9% INJ 100 ML IV ONE (19:45)
[2017-11-30] MEDS ORDERED: CEPH-460 PO (20:31)
[2017-11-30 20:36] LABS: CORRECTED NUCLEATED RBC 13 /100 WBC (0-0); LYMPHOCYTES 9 % (9-44); MONOCYTES 14 % (0-8); NEUTROPHIL # MANUAL DIFF 7.8 TH/MM3 (1.8-7.7); NUCLEATED RED BLOOD CELL 13 (0-0); POLYS (SEG NEUTROPHILS) 76 % (16-70)
[2017-11-30 20:39] LABS: HOWELL-JOLLY BODIES PRESENT (NONE SEEN); SICKLE CELLS 2+ (NORMAL); TARGET CELLS 1+ (NORMAL)
[2017-11-30 20:43] LABS: POLYCHROMASIA 3.3 % (0.0-1.9)
--- NOTE | 2017-11-30 21:40 | RADRPT ---
EXAM DATE/TIME: 11/30/2017 20:34 [facility] COMPARISON: CT BRAIN W/O CONTRAST, December 18, 2016, 22:03. INDICATIONS : Altered mental status. RADIATION DOSE: 30.04 CTDIvol (mGy) MEDICAL HISTORY : Sickle cell disease. Seizures. SURGICAL HISTORY : Tubal ligation. ENCOUNTER: Initial ACUITY: 1 day PAIN SCALE: 0/10 LOCATION: cranial TECHNIQUE: Multiple contiguous axial images were obtained of the head. Using automated exposure control and adj ustment of the mA and/or kV according to patient size, radiation dose was kept as low as reasonably a chievable to obtain optimal diagnostic quality images. DICOM format image data is available electro nically for review and comparison. FINDINGS: CEREBRUM: The ventricles are normal for age. No evidence of midline shift, mass lesion, hemorrhage or acute in farction. No extra-axial fluid collections are seen. POSTERIOR FOSSA: The cerebellum and brainstem are intact. The 4th ventricle is midline. The cerebellopontine angle i s unremarkable. EXTRACRANIAL: The visualized portion of the orbits is intact. SKULL: The calvaria is intact. No evidence of skull fracture. The bones are dense consistent with the known sickle cell disease. CONCLUSION: No acute disease. Suhail Zaldivar MD on November 30, 2017 at 21:37 Board Certified Radiologist. This report was verified electronically.
== END 2017-11-30 22:13 ==
LOC: NEPE 17:23
DX: N39.0 Urinary tract infection, site not specified (principal); R62.50 Unspecified lack of expected normal physiological development in childhood; S82.141D Displaced bicondylar fracture of right tibia, subsequent encounter for closed fracture with routine healing; F41.9 Anxiety disorder, unspecified; R01.1 Cardiac murmur, unspecified; R56.9 Unspecified convulsions; D57.1 Sickle-cell disease without crisis; X58.XXXD Exposure to other specified factors, subsequent encounter; Z79.01 Long term (current) use of anticoagulants
CPT/HCPCS: 70450; 73560; 80053; 81001; 85007; 85027; 85610; 85730; 87086; 96374; 99285; J0696

== ENCOUNTER 2017-12-17 18:50 | Inpatient (IN) | payer MEDICARE, OTHER ==
[~2017-12-17 18:50] MED LIST changes: +CEPH-460 PO; -TRAM50TA PO; +TYLE325T PO
[2017-12-17 19:11] VITALS: BP 108/53; PULSE 86; RESP 16; TEMP 98; O2SAT 96
[2017-12-17 21:23] VITALS: BP 115/66; PULSE 71; RESP 18; TEMP 98.5; O2SAT 98
[2017-12-17] MEDS ORDERED: SODIUM CHLOR 0.9% 1000 ML INJ 1,000 ML IV ONE (21:25)
[2017-12-17] MEDS ORDERED: SODIUM CHLORIDE 0.9% FLUSH 10 ML FLUSH IVF PRN (21:30)
[2017-12-17 21:32] VITALS: RESP 18; O2SAT 100
--- NOTE | 2017-12-17 21:52 | PD ---
HPI Chief Complaint: Chest Pain Time Seen by Provider: 21:17 Travel History International Travel<30 days: No Contact w/Intl Traveler<30days: No Traveled to known affect area: No History of Present Illness HPI Patient is a 52-year-old female presenting to the emergency department for evaluation of chest pain. Family member states it started earlier today, an EKG was performed at the long term where patient resides. Additionally she had labs drawn and was sent to the emergency department for hemoglobin of 6.5. Patient states she feels short of breath occasionally. Patient has a cognitive deficit and is not rating her pain. Symptom onset appears sudden, symptoms are mild in nature. Family members report a history of sickle cell disease, they state that she does not have frequent sickle cell crisis. Most of the H&P was given by family member. PFSH Past Medical History Anxiety: Yes Depression: Yes Heart Rhythm Problems: Yes (Murmur) Cardiovascular Problems: Yes Congestive Heart Failure: Yes Developmental Delay: Yes ("BRAIN DAMAGE SINCE 2 YEARS OLD") Gastrointestinal Disorders: Yes Genitourinary: Yes Headaches: Yes Hypertension: Yes Neurologic: Yes Psychiatric: Yes Immunizations Current: Yes Migraines: Yes Seizures: Yes (2005 AND 02/14/08) Sickle Cell Disease: Yes PNEUMOCCOCAL Vaccine (Year): 1 ?: Not Menopausal: Yes : 0 Para: 0 Miscarriage: 0 : 0 Tubal Ligation: Yes Past Surgical History Cholecystectomy: Yes Gynecologic Surgery: Yes (TUBAL LIGATION) Other Surgery: Yes (Possible gallbladder) Social History Alcohol Use: No Tobacco Use: No Substance Use: No Allergies-Medications (Allergen,Severity, Reaction): Coded Allergies: erythromycin base (Unverified Allergy, Severe, 12/17/17) Uncoded Allergies: MYCINS (Allergy, Severe, EDEMA, 09/26/13) Reported Meds & Prescriptions Reported Meds & Active Scripts Active Lovenox Inj (Enoxaparin Sodium) 40 Mg/0.4 Ml Syr 40 Mg SQ Q24H Hydrocodone-Acetamin 10-325 mg (Hydrocodone/Acetaminophen) 10 Mg-325 Mg Tablet 1 Tab PO Q6H PRN Reported Potassium Chloride ER (Potassium Chloride) 10 Meq Tab 10 Meq PO DAILY Lisinopril 5 Mg Tab 5 Mg PO DAILY Tylenol (Acetaminophen) 325 Mg Tab 650 Mg PO Q4H PRN Furosemide 20 Mg Tab 20 Mg PO DAILY Hydrea (Hydroxyurea) 500 Mg Cap 500 Mg PO DAILY Keppra (Levetiracetam) 500 Mg Tab 500 Mg PO BID Review of Systems Except as stated in HPI: all other systems reviewed are Neg General / Constitutional: No: Fever Eyes: No: Blurred Vision HENT: No: Headaches Cardiovascular: Positive: Chest Pain or Discomfort Respiratory: Positive: Shortness of Breath Gastrointestinal: No: Nausea, Abdominal Pain Neurologic: No: Weakness, Dizziness, Syncope Physical Exam Narrative GENERAL: Well-developed, well-nourished, alert female. Presenting in no acute distress. SKIN: Warm and dry. HEAD: Atraumatic. Normocephalic. EYES: Pupils equal and round. No scleral icterus. No injection or drainage. ENT: No nasal bleeding or discharge. Mucous membranes pink and moist. NECK: Trachea midline. No JVD. CARDIOVASCULAR: Regular rate and rhythm. RESPIRATORY: No accessory muscle use. Clear to auscultation. Breath sounds equal bilaterally. GASTROINTESTINAL: Abdomen soft, non-tender, nondistended. Hepatic and splenic margins not palpable. MUSCULOSKELETAL: Extremities without clubbing, cyanosis, or edema. No obvious deformities. Right knee in soft brace NEUROLOGICAL: Awake and alert. No obvious cranial nerve deficits. Motor grossly within normal limits. Five out of 5 muscle strength in the arms and legs. Normal speech. PSYCHIATRIC: Appropriate mood and affect; insight and judgment normal. Data Data Last Documented VS Vital Signs Date Time Temp Pulse Resp B/P (MAP) Pulse Ox O2 Delivery O2 Flow Rate FiO2 12/17/17 21:32 18 100 Room Air 12/17/17 21:23 98.5 71 Orders Orders C-Reactive Protein (Crp) (12/17/17 21:25) Retic Count (12/17/17 21:25) Urinalysis - C+S If Indicated (12/17/17 21:25) Ecg Monitoring (12/17/17 21:25) Iv Access Insert/Monitor (12/17/17 21:25) Oximetry (12/17/17 21:25) Sodium Chloride 0.9% Flush (Ns Flush) (12/17/17 21:30) Sodium Chlor 0.9% 1000 Ml Inj (Ns 1000 M (12/17/17 21:25) Ckmb (Isoenzyme) Profile (12/17/17 21:25) Troponin I (12/17/17 21:25) Lipase (12/17/17 21:25) Electrocardiogram (12/17/17 ) Chest, Single Ap (12/17/17 ) Type And Screen (12/17/17 21:30) B-Type Natriuretic Peptide (12/17/17 22:29) Levofloxacin 750 Mg Premix Inj (Levaquin (12/17/17 22:30) Admit Order (Ed Use Only) (12/17/17 22:47) Labs Laboratory Tests Test 12/17/17 21:45 12/17/17 21:52 Urine Color YELLOW Urine Turbidity CLEAR Urine pH 5.0 Urine Specific [place] 1.008 Urine Protein TRACE mg/dL Urine Glucose (UA) NEG mg/dL Urine Ketones NEG mg/dL Urine Occult Blood NEG Urine Nitrite NEG Urine Bilirubin NEG Urine Urobilinogen LESS THAN 2.0 MG/DL Urine Leukocyte Esterase TRACE Urine WBC 3 /hpf Urine Squamous Epithelial Cells <1 /hpf Urine Bacteria RARE /hpf Microscopic Urinalysis Comment CULT NOT INDICATED Reticulocyte Count 10.2 % Absolute Reticulocyte Count 175.1 MIL/L Total Creatine Kinase 27 U/L Troponin I LESS THAN 0.02 NG/ML C-Reactive Protein LESS THAN 0.29 MG/DL B-Type Natriuretic Peptide 76 PG/ML Lipase 246 U/L MDM Medical Decision Making Medical Screen Exam Complete: Yes Emergency Medical Condition: Yes Medical Record Reviewed: Yes Interpretation(s) Vital Signs Date Time Temp Pulse Resp B/P (MAP) Pulse Ox O2 Delivery O2 Flow Rate FiO2 12/17/17 21:32 18 100 Room Air 12/17/17 21:23 98.5 71 18 115/66 (82) 98 Room Air 12/17/17 19:11 98.0 86 16 108/53 (71) 96 Differential Diagnosis ACS versus USA versus sickle cell crisis versus pulmonary embolism versus chest wall pain versus other Narrative Course Patient is a 52-year-old female presenting to the emergency department for evaluation of chest pain. Patient's vital signs are stable, labs and imaging ordered and pending. Medical records reviewed, patient had labs performed earlier in the day that are currently in our system. Hemoglobin resulted at 6.4. Will add on reticulocyte count, CPK, cardiac enzymes, urinalysis, EKG. Patient be given IV fluids now. Initial EKG in the emergency department shows normal sinus rhythm, this was reviewed by my attending physician. Reticulocyte count is 10.2, absolute reticulocyte count is 175.1 Chest x-ray shows cardiomegaly with mild basilar airspace disease. Total CK is 27 CRP is less than 0.29, lipase is 246, cardiac enzymes are negative. Patient had a set of cardiac enzymes drawn earlier today at 1 PM which were also negative. Urinalysis is unremarkable Patient will be given dose of IV Levaquin now. For likely developing pneumonia. Patient will be admitted, discussed with Dr. Hernandez who accepted admission. Diagnosis Primary Impression: Sickle cell crisis Additional Impression: Chest pain Qualified Codes: R07.9 - Chest pain, unspecified Admitting Information Admitting Physician Requests: Admit Condition: Stable Whitley Rasheed Dec 17, 2017 21:52
[2017-12-17 22:19] LABS: RETIC # 175.1 MIL/L (20.0-150.0); RETIC % 10.2 % (0.4-3.0)
[2017-12-17 22:20] LABS: BACTERIA, URINE RARE /hpf; BILIRUBIN, URINE NEG (NEG); BLOOD, URINE NEG (NEG); GLUCOSE,URINE NEG (NEG); KETONE, URINE NEG (NEG); NITRITE,URINE NEG (NEG); SQUAMOUS EPITHELIAL CELL URINE <1 /hpf (0-5); URINE COLOR YELLOW (YELLW/STRAW); URINE LEUKOCYTE ESTERASE TRACE (NEG)
--- NOTE | 2017-12-17 22:23 | RADRPT ---
EXAM DATE/TIME: 12/17/2017 21:57 [facility] COMPARISON: CHEST SINGLE AP, November 24, 2017, 8:48. INDICATIONS : Patient complains of chest and abdomen pain. MEDICAL HISTORY : Hypertension. Seizures. SURGICAL HISTORY : Cholecystectomy. Tubal ligation. ENCOUNTER: Subsequent ACUITY: 2 days PAIN SCORE: 3/10 LOCATION: chest FINDINGS: A single view of the chest demonstrates cardiomegaly. Mild basilar airspace disease. No effusion. No pneumothorax. CONCLUSION: 1. Cardiomegaly with mild basilar airspace disease. No significant change from November 24. Rachid Tobin MD on December 17, 2017 at 22:21 Board Certified Radiologist. This report was verified electronically.
[2017-12-17] MEDS ORDERED: POTA10TA2 PO (22:26)
[2017-12-17] MEDS ORDERED: LISI-519 PO (22:26)
[2017-12-17] MEDS ORDERED: LEVOFLOXACIN 750 MG PREMIX INJ 150 ML IV ONE (22:30)
--- NOTE | 2017-12-17 22:30 | PD ---
Data Data Last Documented VS Vital Signs Date Time Temp Pulse Resp B/P (MAP) Pulse Ox O2 Delivery O2 Flow Rate FiO2 12/17/17 21:32 18 100 Room Air 12/17/17 21:23 98.5 71 Orders Orders C-Reactive Protein (Crp) (12/17/17 21:25) Retic Count (12/17/17 21:25) Urinalysis - C+S If Indicated (12/17/17 21:25) Ecg Monitoring (12/17/17 21:25) Iv Access Insert/Monitor (12/17/17 21:25) Oximetry (12/17/17 21:25) Sodium Chloride 0.9% Flush (Ns Flush) (12/17/17 21:30) Sodium Chlor 0.9% 1000 Ml Inj (Ns 1000 M (12/17/17 21:25) Ckmb (Isoenzyme) Profile (12/17/17 21:25) Troponin I (12/17/17 21:25) Lipase (12/17/17 21:25) Electrocardiogram (12/17/17 ) Chest, Single Ap (12/17/17 ) Type And Screen (12/17/17 21:30) B-Type Natriuretic Peptide (12/17/17 22:29) Levofloxacin 750 Mg Premix Inj (Levaquin (12/17/17 22:30) Admit Order (Ed Use Only) (12/17/17 22:47) Labs Laboratory Tests Test 12/17/17 21:45 12/17/17 21:52 Urine Color YELLOW Urine Turbidity CLEAR Urine pH 5.0 Urine Specific [place] 1.008 Urine Protein TRACE mg/dL Urine Glucose (UA) NEG mg/dL Urine Ketones NEG mg/dL Urine Occult Blood NEG Urine Nitrite NEG Urine Bilirubin NEG Urine Urobilinogen LESS THAN 2.0 MG/DL Urine Leukocyte Esterase TRACE Urine WBC 3 /hpf Urine Squamous Epithelial Cells <1 /hpf Urine Bacteria RARE /hpf Microscopic Urinalysis Comment CULT NOT INDICATED Reticulocyte Count 10.2 % Absolute Reticulocyte Count 175.1 MIL/L Total Creatine Kinase 27 U/L Troponin I LESS THAN 0.02 NG/ML C-Reactive Protein LESS THAN 0.29 MG/DL B-Type Natriuretic Peptide 76 PG/ML Lipase 246 U/L [facility] Medical Record Reviewed: Yes Supervised Visit with LIZETH: Yes Narrative Course I, Dr. Taveras, have reviewed the advance practice practitioner's documentation and am in agreement, met with the patient face to face, made the diagnosis, and the medical decision making was done by me. *My assessment and Findings: Last Impressions Chest X-Ray 12/17/17 0000 Signed Impressions: Service Date/Time: Sunday, December 17, 2017 21:57 - CONCLUSION: 1. Cardiomegaly with mild basilar airspace disease. No significant change from November 24. Rachid Tobin MD Admission for IV abx and pain control. Hero Taveras MD Dec 17, 2017 22:30
[2017-12-17 22:31] LABS: C-REACTIVE PROTEIN LESS THAN 0.29 MG/DL (0.00-0.30)
[2017-12-17 22:34] LABS: TROPONIN I LESS THAN 0.02 NG/ML (0.02-0.05)
[2017-12-17 22:47] VITALS: PULSE 77
[2017-12-17 23:00] VITALS: BP 113/76; PULSE 70; RESP 18; O2SAT 96
[2017-12-17] MEDS ORDERED: HYDROmorphone HCL PF 2 MG/ML VIAL IV PUSH PRN (23:00)
[2017-12-17] MEDS ORDERED: LACTULOSE SYRUP 20 GM/30 ML CUP PO PRN (23:00)
[2017-12-17] MEDS ORDERED: MAGNESIUM HYDROXIDE SUSP 30 ML CUP PO PRN (23:00)
[2017-12-17] MEDS ORDERED: ACETAMINOPHEN 325 MG TAB PO PRN (23:00)
[2017-12-17] MEDS ORDERED: SODIUM CHLORIDE 0.9% FLUSH 10 ML FLUSH IV FLUSH PRN (23:00)
[2017-12-17] MEDS ORDERED: ONDANSETRON HCL 4 MG/2 ML VIAL IVP PRN (23:00)
[2017-12-17] MEDS ORDERED: SENNOSIDES 8.6 MG TAB PO PRN (23:00)
[2017-12-17] MEDS ORDERED: BISACODYL 10 MG SUPP RECTAL PRN (23:00)
--- NOTE | 2017-12-17 23:03 | HHI.HP ---
HPI Service [facility] Primary Care Physician Keenan Girard MD Admission Diagnosis SICKLE CELL CRISIS, CHEST PAIN Diagnoses: (1) Chest pain Diagnosis: Principal (2) Sickle cell crisis (3) Anemia Diagnosis: Principal (4) Seizure disorder Diagnosis: Principal Travel History International Travel<30 Days: No Contact w/Intl Traveler <30 Da: No Traveled to Known Affected Are: No History of Present Illness This is a 52-year-old female with a PMH of Developmental Delay, Anxiety, Depression, HTN, Seizure Disorder and Sickle Cell Disease who was sent to the ER from SNF for c/o chest pain and eval of anemia. Outpatient labs w/ Trop 0.02 , Hgb 6.4. No active bleeding noted. Pt poor historian due to developmental delay, but able to tell me she has no chest pain at this time. History obtained from pt's Mother and Grandmother at bedside. Per their report, pt complained of chest pain earlier today. No chest pain, no SOB, no fever/ chills. On arrival, BP 108/53, HR 86, O2 sat 96% on RA, Afebrile. Hemoglobin 6.4. Repeat troponin 0 0.02. CXR with cardiomegaly with mild basilar airspace disease, no significant change from previous. Review of Systems Except as stated in HPI: all other systems reviewed are Neg ROS: 14 point review of systems otherwise negative. Past Family Social History Past Medical History PMH; Developmental Delay, Anxiety, Depression, HTN, Seizure Disorder and Sickle Cell Disease Past Surgical History PAST SURGICAL HISTORY: Tubal Ligation, Cholecystectomy Allergies: Coded Allergies: erythromycin base (Unverified Allergy, Severe, 12/17/17) Uncoded Allergies: MYCINS (Allergy, Severe, EDEMA, 09/26/13) Family History PAST FAMILY HISTORY: Reviewed. No h/o DM or CAD Social History PAST SOCIAL HISTORY: Negative for alcohol, tobacco or drugs. Physical Exam Vital Signs Vital Signs Date Time Temp Pulse Resp B/P (MAP) Pulse Ox O2 Delivery O2 Flow Rate FiO2 12/17/17 21:32 18 100 Room Air 12/17/17 21:23 98.5 71 18 115/66 (82) 98 Room Air 12/17/17 19:11 98.0 86 16 108/53 (71) 96 Physical Exam PE: GENERAL: Very pleasant middle-aged black female in no acute distress, appears younger than stated age. +developmental delay, minimally conversive. HEENT: PERRLA, EOMI. No scleral icterus or conjunctival pallor. No lid lag or facial droop. CARDIOVASCULAR: Regular rate and rhythm. No obvious murmurs to auscultation. No chest tenderness to palpation. RESPIRATORY: No obvious rhonchi or wheezing. Clear to auscultation. Breath sounds equal bilaterally. GASTROINTESTINAL: Abdomen soft, non-tender, nondistended. BS normal. MUSCULOSKELETAL: Extremities without clubbing, cyanosis, or edema. No obvious deformities. NEUROLOGICAL: Awake, alert. No focal neurologic deficits. Moving both upper and lower extremities spontaneously. Laboratory Laboratory Tests Test 12/17/17 21:45 12/17/17 21:52 Urine Color YELLOW Urine Turbidity CLEAR Urine pH 5.0 Urine Specific [place] 1.008 Urine Protein TRACE Urine Glucose (UA) NEG Urine Ketones NEG Urine Occult Blood NEG Urine Nitrite NEG Urine Bilirubin NEG Urine Urobilinogen LESS THAN 2.0 Urine Leukocyte Esterase TRACE Urine WBC 3 Urine Squamous Epithelial Cells <1 Urine Bacteria RARE Microscopic Urinalysis Comment CULT NOT INDICATED Reticulocyte Count 10.2 Absolute Reticulocyte Count 175.1 Total Creatine Kinase 27 Troponin I LESS THAN 0.02 C-Reactive Protein LESS THAN 0.29 Lipase 246 Caprini VTE Risk Assessment Caprini VTE Risk Assessment: No/Low Risk (score <= 1) Caprini Risk Assessment Model Point Value = 1 Point Value = 2 Point Value = 3 Point Value = 5 Age 41-60 Minor surgery BMI > 25 kg/m2 Swollen legs Varicose veins or History of unexplained or recurrent spontaneous Oral contraceptives or hormone replacement Sepsis (< 1 month) Serious lung disease, including pneumonia (< 1 month) Abnormal pulmonary function Acute myocardial infarction Congestive heart failure (< 1 month) History of inflammatory bowel disease Medical patient at bed rest Age 61-74 Arthroscopic surgery Major open surgery (> 45 min) Laparoscopic surgery (> 45 min) Malignancy Confined to bed (> 72 hours) Immobilizing plaster cast Central venous access Age >= 75 History of VTE Family history of VTE Factor V Leiden Prothrombin [id number] Lupus anticoagulant Anticardiolipin antibodies Elevated serum homocysteine Heparin-induced thrombocytopenia Other congenital or acquired thrombophilia Stroke (< 1 month) Elective arthroplasty Hip, pelvis, or leg fracture Acute spinal cord injury (< 1 month) Prophylaxis Regimen Total Risk Factor Score Risk Level Prophylaxis Regimen 0-1 Low Early ambulation 2 Moderate Order ONE of the following: *Sequential Compression Device (SCD) *Heparin 5000 units SQ BID 3-4 Higher Order ONE of the following medications: *Heparin 5000 units SQ TID *Enoxaparin/Lovenox 40 mg SQ daily (WT < 150 kg, CrCl > 30 mL/min) *Enoxaparin/Lovenox 30 mg SQ daily (WT < 150 kg, CrCl > 10-29 mL/min) *Enoxaparin/Lovenox 30 mg SQ BID (WT < 150 kg, CrCl > 30 mL/min) AND/OR *Sequential Compression Device (SCD) 5 or more Highest Order ONE of the following medications: *Heparin 5000 units SQ TID (Preferred with Epidurals) *Enoxaparin/Lovenox 40 mg SQ daily (WT < 150 kg, CrCl > 30 mL/min) *Enoxaparin/Lovenox 30 mg SQ daily (WT < 150 kg, CrCl > 10-29 mL/min) *Enoxaparin/Lovenox 30 mg SQ BID (WT < 150 kg, CrCl > 30 mL/min) AND *Sequential Compression Device (SCD) Assessment and Plan Problem List: (1) Chest pain ICD Code: R07.9 - Chest pain, unspecified (2) Sickle cell crisis ICD Code: D57.00 - Hb-SS disease with crisis, unspecified (3) Anemia ICD Code: D64.9 - Anemia, unspecified (4) Seizure disorder ICD Code: G40.909 - Seizure disorder Status: Chronic Assessment and Plan A/P: 1. Chest Pain: acute onset of chest pain earlier today, currently chest pain free. Initial trop 0.02, repeat trop also negative. Will check cardiac enzymes , telemetry. CXR w/ no acute findings, similar to previous from 11/24, images reviewed by me. 2. Sickle Cell Crisis: Retic Count 10.2, IVF for hydration, resume home Hydroxyurea, Analgesics/antiemetics as needed. Follows w/ Dr. Kelly, will consult for further evaluation/recommendation. 3. Anemia: Acute on Chronic. Hgb 6.4 from earlier today, appears to be at baseline, will avoid transfusion at this time. Repeat Hgb/Hct, if persistently <6.5 will plan to transfuse 1u and recheck. No active bleeding. 4. Seizure Disorder: Chronic. Resume home Keppra. 5. DVT Prophylaxis: SCD/Teds. 6. Social work for d/c planning as needed. 7. Case discussed at length w/ ER doc and pt's family at bedside, labs/records/ imaging reviewed by me. Physician Certification 2 Midnight Certification Type: Admission for Inpatient Services Order for Inpatient Services The services are ordered in accordance with Medicare regulations or non- Medicare payer requirements, as applicable. In the case of services not specified as inpatient-only, they are appropriately provided as inpatient services in accordance with the 2-midnight benchmark. Estimated LOS (days): 2 days is the estimated time the patient will need to remain in the hospital, assuming treatment plan goals are met and no additional complications. Post-Hospital Plan: Not yet determined Arianna Hernandez MD Dec 17, 2017 23:03
[2017-12-18] VITALS (12 sets, daily range): BP systolic 99–136; BP diastolic 55–64; PULSE 71–82; RESP 16–19; TEMP 97.2–98.5; O2SAT 93–97
[2017-12-18 00:27] LABS: HEMATOCRIT 15.4 % (35.0-46.0); HEMOGLOBIN 5.4 GM/DL (11.6-15.3)
[2017-12-18] MEDS: SODIUM CHLOR 0.9% 1000 ML INJ 1,000 ML IV SCH ×2 (00:41→08:44)
[2017-12-18] MEDS ORDERED: SODIUM CHLOR 0.9% 250 ML INJ 250 ML IV ONE (01:15)
[2017-12-18] MEDS: HYDROXYUREA 500 MG CAP PO SCH (08:42)
[2017-12-18] MEDS: DOCUSATE SODIUM 50 MG/SENNA 8.6 MG TAB PO SCH ×2 (08:43→20:05)
[2017-12-18] MEDS: LISINOPRIL 5 MG TAB PO SCH (08:43)
[2017-12-18] MEDS: levETIRAcetam 500 MG TAB PO SCH ×2 (08:43→20:05)
[2017-12-18] MEDS: SODIUM CHLORIDE 0.9% FLUSH 10 ML FLUSH IV FLUSH SCH ×2 (08:44→20:08)
[2017-12-18] MEDS ORDERED: FUROSEMIDE 20 MG TAB PO SCH (09:00)
[2017-12-18 10:39] LABS: AUTOMATED NEUTROPHIL # 2.9 TH/MM3 (1.8-7.7); BASOPHIL % 1.1 % (0.0-2.0); EOSINOPHIL # 0.1 TH/MM3 (0-0.4); EOSINOPHIL % 2.7 % (0.0-4.0); LYMPH % 19.1 % (9.0-44.0); LYMPHOCYTE # 0.8 TH/MM3 (1.0-4.8); MEAN CELL VOLUME 97.1 FL (80.0-100.0); MEAN CORPUSCULAR HEMOGLOBIN 33.9 PG (27.0-34.0); MEAN CORPUSCULAR HGB CONC 34.9 % (32.0-36.0); MEAN PLATELET VOLUME 7.8 FL (7.0-11.0); MONO % 10.5 % (0.0-8.0); MONOCYTE # 0.5 TH/MM3 (0-0.9); NEUT % 66.6 % (16.0-70.0); PLATELET COUNT 251 TH/MM3 (150-450); RED BLOOD COUNT 2.11 MIL/MM3 (4.00-5.30); RED CELL DISTRIBUTION WIDTH 19.1 % (11.6-17.2); WHITE BLOOD COUNT 4.4 TH/MM3 (4.0-11.0)
[2017-12-18 10:56] LABS: HEMATOCRIT 20.5 % (35.0-46.0); HEMOGLOBIN 7.2 GM/DL (11.6-15.3)
[2017-12-18 10:59] LABS: ALBUMIN 3.3 GM/DL (3.4-5.0); AST (GOT) 34 U/L (15-37); BICARBONATE 23.8 MEQ/L (21.0-32.0); BLOOD UREA NITROGEN 19 MG/DL (7-18); CHLORIDE 116 MEQ/L (98-107); GLOMERULAR FILTRATION RATE 90 ML/MIN (>89); GLUCOSE,RANDOM 116 MG/DL (74-106); SODIUM (NA) 147 MEQ/L (136-145)
[2017-12-18 11:04] LABS: ALKALINE PHOSPHATASE 88 U/L (45-117); ALT (GPT) 20 U/L (10-53); TOTAL BILIRUBIN ADULT 1.3 MG/DL (0.2-1.0); TOTAL PROTEIN 7.1 GM/DL (6.4-8.2); TROPONIN I LESS THAN 0.02 NG/ML (0.02-0.05)
[2017-12-18 11:47] LABS: CORRECTED NUCLEATED RBC 9 /100 WBC (0-0); LYMPHOCYTES 24 % (9-44); MONOCYTES 7 % (0-8); NUCLEATED RED BLOOD CELL 9 (0-0); POLYS (SEG NEUTROPHILS) 68 % (16-70); SICKLE CELLS 1+ (NORMAL)
--- NOTE | 2017-12-18 11:58 | HHI.PR ---
Subjective Remarks The patient was resting comfortably in bed. She denied any chest pain or shortness of breath. Family was at the bedside and their questions were answered. Discussed with nursing. Objective Vitals Vital Signs Date Time Temp Pulse Resp B/P (MAP) Pulse Ox O2 Delivery O2 Flow Rate FiO2 12/18/17 08:00 97.2 71 17 117/58 (77) 95 12/18/17 06:07 97.8 72 18 119/56 94 12/18/17 05:07 80 12/18/17 04:00 97.7 75 16 136/64 (88) 94 12/18/17 03:01 98.5 74 18 109/56 97 12/18/17 02:46 98.1 73 19 107/56 95 12/18/17 00:43 72 12/18/17 00:11 12/18/17 00:00 98.4 78 16 117/56 (76) 93 12/17/17 23:00 70 18 113/76 (88) 96 Room Air 12/17/17 21:32 18 100 Room Air 12/17/17 21:23 98.5 71 18 115/66 (82) 98 Room Air 12/17/17 19:11 98.0 86 16 108/53 (71) 96 I/O 12/17/17 12/17/17 12/17/17 12/18/17 12/18/17 12/18/17 07:00 15:00 23:00 07:00 15:00 23:00 Intake Total 1610 ml Balance 1610 ml Intake IV Total 1150 ml Packed Cells 400 ml Blood Product IV Normal Saline Flush 60 ml # Voids 2 Result Diagram: 12/18/17 0948 12/18/17 0948 Imaging Last Impressions Chest X-Ray 12/17/17 0000 Signed Impressions: Service Date/Time: Sunday, December 17, 2017 21:57 - CONCLUSION: 1. Cardiomegaly with mild basilar airspace disease. No significant change from November 24. Rachid Tobin MD Objective Remarks GENERAL: Very pleasant middle-aged female in no acute distress. HEENT: PERRLA, EOMI. No scleral icterus or conjunctival pallor. No lid lag or facial droop. CARDIOVASCULAR: Regular rate and rhythm. Grade 2 systolic murmur appreciated. RESPIRATORY: No obvious rhonchi or wheezing. Clear to auscultation. Breath sounds equal bilaterally. GASTROINTESTINAL: Abdomen soft, non-tender, nondistended. BS normal. MUSCULOSKELETAL: Extremities without clubbing, cyanosis, or edema. RLE in splint. NEUROLOGICAL: Awake, alert. +developmental delay, minimally conversive. Moving both upper and lower extremities spontaneously. PSYCH: Mood and affect appropriate. Medications and IVs Current Medications Medications (Trade) Dose Ordered Sig/Zuri Route Start Time Stop Time Status Last Admin Sodium Chloride 1,000 ml @ 100 mls/hr Q10H IV 12/17/17 22:59 12/18/17 00:41 (NS Flush) 2 ml UNSCH PRN IV FLUSH 12/17/17 23:00 (NS Flush) 2 ml BID IV FLUSH 12/18/17 09:00 12/18/17 08:44 (Zofran Inj) 4 mg Q6H PRN IVP 12/17/17 23:00 (Tylenol) 650 mg Q6H PRN PO 12/17/17 23:00 (Dilaudid Pf Inj) 1 mg Q3H PRN IV PUSH 12/17/17 23:00 (Dilaudid Pf Inj) 2 mg Q3H PRN IV PUSH 12/17/17 23:00 (Pilar-Colace) 1 tab BID PO 12/18/17 09:00 12/18/17 08:43 (Milk Of Magnesia Liq) 30 ml Q12H PRN PO 12/17/17 23:00 (Senokot) 17.2 mg Q12H PRN PO 12/17/17 23:00 (Dulcolax Supp) 10 mg DAILY PRN RECTAL 12/17/17 23:00 (Lactulose Liq) 30 ml DAILY PRN PO 12/17/17 23:00 (Lasix) 20 mg DAILY PO 12/18/17 09:00 Future Hold 12/18/17 08:44 (Hydrea) 500 mg DAILY PO 12/18/17 09:00 12/18/17 08:42 (Keppra) 500 mg BID PO 12/18/17 09:00 12/18/17 08:43 (Prinivil) 5 mg DAILY PO 12/18/17 09:00 12/18/17 08:43 Sodium Chloride 250 ml @ 15 mls/hr ONCE ONCE IV 12/18/17 01:15 12/18/17 17:54 12/18/17 02:45 A/P Problem List: (1) Chest pain ICD Code: R07.9 - Chest pain, unspecified (2) Sickle cell crisis ICD Code: D57.00 - Hb-SS disease with crisis, unspecified (3) Anemia ICD Code: D64.9 - Anemia, unspecified (4) Seizure disorder ICD Code: G40.909 - Seizure disorder Status: Chronic Assessment and Plan Sickle Cell Crisis Retic Count 10.2, hgb 5.4. S/p 1 unit red blood cells with adequate response. - IVF for hydration. - resume home Hydroxyurea. - Analgesics/antiemetics/ oxygen as needed. - Follows w/ Dr. Kelly, will consult hematology for further evaluation/ recommendations. Atypical chest pain Acute onset of chest pain on day of admission, likely s/t above. Currently chest pain free. CXR w/ no acute findings, similar to previous from 11/24. Has had recent cardiac work-up. Trops are flat. - pain control as needed with a bowel regimen. - telemetry. Seizure disorder Chronic. - Resume home Keppra. Hypernatremia Possibly s/t decreased PO intake. - ADAT. - 1/2 NS. - follow BMP. DVT Prophylaxis: SCD/Tim Rosas DO Dec 18, 2017 11:58
[2017-12-18] MEDS: SODIUM CHLOR 0.45% 1000 ML INJ 1,000 ML IV SCH ×2 (12:00→22:00)
--- NOTE | 2017-12-18 16:06 | MB ---
cc: Micky Castro MD DATE: 12/18/2017 REASON FOR CONSULTATION: Sickle cell crisis. HISTORY OF PRESENT ILLNESS: This is a 52-year-old female who has a history of sickle/beta thalassemia. She is taking hydroxyurea 500 mg twice a day. She has a history of seizures as well as severe neurocognitive dysfunction. She is dependent on her mother who is her primary care caregiver. She presents to the emergency department with acute chest pain. She was found to have a hemoglobin of 6.4. In the emergency department, the hemoglobin had dropped further and it was found to be 5.4. She was given packed red blood cell transfusion. She had a chest x-ray, which showed cardiomegaly with mild basilar airspace disease. The patient is currently resting comfortably. Her mother states that she did not get any sleep last night. She was getting blood transfusion. She has not had any fevers or chills. No cough or congestion. Her oxygen saturations are in the high 90s on room air. Her blood pressure is 113/61, respiratory rate is 14 and pulse is in the 70s. REVIEW OF SYSTEMS: Could not be completed due to the patient's history of neurocognitive dysfunction and she is sleepy. 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 PAST SURGICAL HISTORY: Tubal ligation and cholecystectomy. FAMILY HISTORY: Reviewed and is noncontributory to this visit. SOCIAL HISTORY: She does not smoke cigarettes, does not drink alcohol. No illicit drug use. She lives in a SNF. MEDICATIONS: 1. Colace p.r.n. 2. Hydroxyurea 500 mg daily. 3. Keppra 500 mg p.o. b.i.d. 4. Lisinopril 5 mg p.o. daily. 5. Zofran 4 mg IV every 6 hours. 6. Tylenol 650 mg p.o. every 6 hours. 7. Dilaudid 1 mg IV every 3 hours. 8. Milk of magnesia 30 mL p.o. every 12 hours. 9. Senna 17.2 mg p.o. every 12 hours. 10. Dulcolax 10 mg p.r.n. 11. Lactulose p.r.n. ALLERGIES: SHE IS ALLERGIC TO ERYTHROMYCIN. PHYSICAL EXAMINATION:. VITAL SIGNS: Blood pressure is 113/61, pulse is in the 80s, temperature is 98, O2 saturations are 95% on room air. GENERAL: Chronically ill, thin female in no apparent distress. HEENT: Pupils are equal, round, reactive to light. EOMI. No oral thrush. No lesion. NECK: Supple. No JVD. No bruits. No lymphadenopathy. CHEST: Clear to auscultation bilaterally. CARDIAC: S1, S2. Regular rate and rhythm. ABDOMEN: Soft, nontender, and nondistended. Bowel sounds are present. EXTREMITIES: Without edema, erythema or cyanosis. SKIN: Without any petechiae, lesions, or bruises. NEUROLOGIC: No focal deficits. PSYCHIATRIC: Mood and affect appropriate. LABORATORY DATA: WBC is 4.4, hemoglobin is 7.2, MCV is 97.1, platelet count is 251. Retic count is elevated at 10.2. Serum chemistries: Sodium 147, potassium 4.3, chloride 116, BUN is 19, creatinine is 0.8, GFR is 90, total bilirubin 1.3, AST is 34, ALT is 20, alkaline phosphatase 88, total protein 7.1, albumin 3.3. IMAGING STUDIES: Chest x-ray was reviewed. It shows cardiomegaly with mild basilar airspace disease. 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 1. Acute sickle cell crises. The patient's hemoglobin was 5.4. She has received packed red blood cell transfusion. Her hemoglobin is 7.2. Her retic count is elevated, consistent with sickle cell crises. I would hold off any further packed red blood cell transfusions. Her baseline hemoglobin is somewhere between 6.5 and 7. She is currently asymptomatic and she is oxygenating well. We will continue to follow her, obtain a chest x-ray tomorrow, encourage incentive spirometry, start folic acid hold Hydrea in acute crisis. Check daily LDH and reticulocyte count. Check bilirubin components tomorrow. 2. Pain control. She is currently asymptomatic. She has been receiving p.r.n. IV Dilaudid. Thank you for allowing me to participate in the care of this patient. I will continue to follow this patient along. MD SCARLET Morse/KHALIDA , 03:12 PM , 04:05 PM [facility]
--- NOTE | 2017-12-18 16:47 | EKG ---
Date Performed: 12/17/2017 Time Performed: 21:31:39 PTAGE: 52 years EKG: Sinus rhythm MINIMAL VOLTAGE CRITERIA FOR LVH, CONSIDER NORMAL VARIANT Since the previous tracing, no significant change noted BORDERLINE ECG PREVIOUS TRACING : 11/24/2017 10.27 DOCTOR: Bailey Kessler Interpretating Date/Time 12/18/2017 16:46:10
[2017-12-19] VITALS (9 sets, daily range): BP systolic 100–144; BP diastolic 56–80; PULSE 61–75; RESP 17–18; TEMP 97.6–97.9; O2SAT 92–99
[2017-12-19 04:59] LABS: BICARBONATE 23.7 MEQ/L (21.0-32.0); CALCIUM 8.7 MG/DL (8.5-10.1); CREATININE 0.56 MG/DL (0.50-1.00); DIRECT BILIRUBIN ADULT 0.3 MG/DL (0.0-0.2); MAGNESIUM 1.7 MG/DL (1.5-2.5); TOTAL BILIRUBIN ADULT 1.3 MG/DL (0.2-1.0)
[2017-12-19 05:25] LABS: HEMOGLOBIN 7.1 GM/DL (11.6-15.3); MEAN CELL VOLUME 96.9 FL (80.0-100.0); MEAN CORPUSCULAR HEMOGLOBIN 34.6 PG (27.0-34.0); MEAN CORPUSCULAR HGB CONC 35.7 % (32.0-36.0); MEAN PLATELET VOLUME 8.4 FL (7.0-11.0); PLATELET COUNT 238 TH/MM3 (150-450); RED BLOOD COUNT 2.05 MIL/MM3 (4.00-5.30); WHITE BLOOD COUNT 4.8 TH/MM3 (4.0-11.0)
[2017-12-19 05:37] LABS: HEMATOCRIT 19.8 % (35.0-46.0)
--- NOTE | 2017-12-19 05:38 | RADRPT ---
EXAM DATE/TIME: 12/19/2017 05:05 [facility] COMPARISON: CHEST SINGLE AP, December 17, 2017, 21:57. INDICATIONS : Dyspnea. MEDICAL HISTORY : Hypertension. Seizures SURGICAL HISTORY : Cholecystectomy. Tubal ligation. ENCOUNTER: Subsequent ACUITY: 1 day PAIN SCORE: 10/10 LOCATION: Bilateral chest FINDINGS: The cardiac silhouette is enlarged in transverse diameter. There is prominence of the central pulmona ry vasculature with indistinct vascular margins compatible with vascular congestion but no evidence o f overt failure. No pleural effusions are identified. CONCLUSION: 1. Cardiomegaly and findings of vascular congestion without overt failure. This is new when compared with the prior exam. Pete Vargas MD on December 19, 2017 at 5:36 Board Certified Radiologist. This report was verified electronically.
[2017-12-19 06:41] LABS: RETIC # 320.9 MIL/L (20.0-150.0); RETIC % 15.8 % (0.4-3.0)
[2017-12-19] MEDS: SODIUM CHLOR 0.45% 1000 ML INJ 1,000 ML IV SCH ×2 (08:00→18:27)
[2017-12-19] MEDS: LISINOPRIL 5 MG TAB PO SCH (08:12)
[2017-12-19] MEDS: DOCUSATE SODIUM 50 MG/SENNA 8.6 MG TAB PO SCH ×2 (08:13→19:54)
[2017-12-19] MEDS: levETIRAcetam 500 MG TAB PO SCH ×2 (08:13→19:54)
[2017-12-19] MEDS: SODIUM CHLORIDE 0.9% FLUSH 10 ML FLUSH IV FLUSH SCH ×2 (08:13→19:54)
[2017-12-19] MEDS: HYDROXYUREA 500 MG CAP PO SCH (08:14)
--- NOTE | 2017-12-19 10:55 | PD.ONC.PN ---
Subjective Subjective Remarks Afebrile overnight Denies chest pain Patient's mother at bedside states she thinks her daughter is doing better today Was complaining of right leg pain last night Objective Data Date Time Temp Pulse Resp B/P (MAP) Pulse Ox O2 Delivery O2 Flow Rate FiO2 12/19/17 08:00 97.6 62 17 139/80 (99) 95 12/19/17 04:29 97.9 68 17 128/64 (85) 99 12/19/17 00:01 61 12/19/17 00:00 97.9 67 17 144/64 (90) 99 12/18/17 20:08 74 12/18/17 20:00 98.0 72 17 99/55 (70) 97 12/18/17 16:00 97.6 72 17 125/62 (83) 95 12/18/17 12:00 98.0 82 17 113/61 (78) 95 12/19/17 12/19/17 12/19/17 07:00 15:00 23:00 Intake Total 680 ml Balance 680 ml Result Diagram: 12/19/17 0405 12/19/17 0405 Laboratory Results Laboratory Tests Test 12/19/17 04:05 White Blood Count 4.8 TH/MM3 Red Blood Count 2.05 MIL/MM3 Hemoglobin 7.1 GM/DL Hematocrit 19.8 % Mean Corpuscular Volume 96.9 FL Mean Corpuscular Hemoglobin 34.6 PG Mean Corpuscular Hemoglobin Concent 35.7 % Red Cell Distribution Width 20.0 % Platelet Count 238 TH/MM3 Mean Platelet Volume 8.4 FL Reticulocyte Count 15.8 % Absolute Reticulocyte Count 320.9 MIL/L Blood Urea Nitrogen 16 MG/DL Creatinine 0.56 MG/DL Random Glucose 85 MG/DL Calcium Level 8.7 MG/DL Magnesium Level 1.7 MG/DL Total Bilirubin 1.3 MG/DL Direct Bilirubin 0.3 MG/DL Sodium Level 143 MEQ/L Potassium Level 4.1 MEQ/L Chloride Level 113 MEQ/L Carbon Dioxide Level 23.7 MEQ/L Anion Gap 6 MEQ/L Estimat Glomerular Filtration Rate 137 ML/MIN Indirect Bilirubin 1.0 MG/DL Imaging Studies Last 24 hours Impressions Chest X-Ray 12/19/17 0600 Signed Impressions: Service Date/Time: Tuesday, December 19, 2017 05:05 - CONCLUSION: 1. Cardiomegaly and findings of vascular congestion without overt failure. This is new when compared with the prior exam. Pete Vargas MD Administered Medications Medications (Trade) Dose Ordered Sig/Zuri Route PRN Reason Start Time Stop Time Status Last Admin Dose Admin Sodium Chloride (NS Flush) 2 ml BID IV FLUSH 12/18/17 09:00 12/18/17 20:08 Senna/Docusate Sodium (Pilar-Colace) 1 tab BID PO 12/18/17 09:00 12/19/17 08:13 Furosemide (Lasix) 20 mg DAILY PO 12/18/17 09:00 Future Hold 12/18/17 08:44 Hydroxyurea (Hydrea) 500 mg DAILY PO 12/18/17 09:00 12/19/17 08:14 Levetriacetam (Keppra) 500 mg BID PO 12/18/17 09:00 12/19/17 08:13 Lisinopril (Prinivil) 5 mg DAILY PO 12/18/17 09:00 12/19/17 08:12 Sodium Chloride 1,000 ml @ 100 mls/hr Q10H IV 12/18/17 12:00 12/18/17 22:00 Objective Remarks GENERAL: Middle-aged female resting in bed in no obvious distress SKIN: Warm and dry. Pale HEAD: Normocephalic. EYES: No injection or drainage. NECK: Supple, trachea midline. CARDIOVASCULAR: Regular rate and rhythm without murmurs. RESPIRATORY: Clear posteriorly. Breathing unlabored at rest. GASTROINTESTINAL: Soft. Nontender to palpation. EXTREMITIES: No cyanosis. Immobilizer to right leg MUSCULOSKELETAL: Adequate muscle tone. NEUROLOGICAL: Awake and alert. Follows commands. Assessment/Plan Problem List: (1) Sickle cell disease ICD Codes: D57.1 - Sickle-cell disease without crisis Status: Chronic Plan: --Patient was admitted with acute crisis with chest pain and a hemoglobin of 5.7. --She is status post 1 unit packed red blood cell transfusion. Hx/Workup: Patient has history of sickle/beta thalassemia. She is taking hydroxyurea 500 mg twice daily. The patient's hemoglobin normally tends to run between 6.5 and 7. Assessment 52-year-old female with history of sickle cell disease admitted with chest pain Plan 1. CXR today shows new vascular congestion. 2. LDH pending. 3. Monitor oxygenation status. 4. CBC in am. Attending Statement The exam, history, and the medical decision-making described in the above note were completed with the assistance of the mid-level provider. I reviewed and agree with the findings presented. I attest that I had a [id number] encounter with the patient on the same day, and personally performed and documented my assessment and findings in the medical record. vascular congestion on chest x-ray Hold IVF Hb stable cbc in am chest xray in am possible d/c in the next 24-48 hours if clinically remains stable Yuli Alexander Dec 19, 2017 10:55 Micky Castro MD Dec 19, 2017 11:31
--- NOTE | 2017-12-19 12:44 | HHI.PR ---
Subjective Remarks The patient was resting comfortably in bed. Her family was at the bedside. The patient had no acute complaints. Discussed with nursing. Objective Vitals Vital Signs Date Time Temp Pulse Resp B/P (MAP) Pulse Ox O2 Delivery O2 Flow Rate FiO2 12/19/17 12:00 97.9 66 17 100/56 (71) 92 12/19/17 08:00 97.6 62 17 139/80 (99) 95 12/19/17 04:29 97.9 68 17 128/64 (85) 99 12/19/17 00:01 61 12/19/17 00:00 97.9 67 17 144/64 (90) 99 12/18/17 20:08 74 12/18/17 20:00 98.0 72 17 99/55 (70) 97 12/18/17 16:00 97.6 72 17 125/62 (83) 95 I/O 12/18/17 12/18/17 12/18/17 12/19/17 12/19/17 12/19/17 07:00 15:00 23:00 07:00 15:00 23:00 Intake Total 1610 ml 1580 ml 680 ml Balance 1610 ml 1580 ml 680 ml Intake Oral 960 ml 680 ml IV Total 1150 ml 620 ml Packed Cells 400 ml Blood Product IV Normal Saline Flush 60 ml # Voids 2 4 3 # Bowel Movements 1 Result Diagram: 12/19/17 0405 12/19/17 0405 Imaging Last Impressions Chest X-Ray 12/19/17 0600 Signed Impressions: Service Date/Time: Tuesday, December 19, 2017 05:05 - CONCLUSION: 1. Cardiomegaly and findings of vascular congestion without overt failure. This is new when compared with the prior exam. Pete Vargas MD Objective Remarks GENERAL: Very pleasant middle-aged female in no acute distress. HEENT: PERRLA, EOMI. No scleral icterus or conjunctival pallor. No lid lag or facial droop. CARDIOVASCULAR: Regular rate and rhythm. Grade 2 systolic murmur appreciated. RESPIRATORY: Crackles at left base. GASTROINTESTINAL: Abdomen soft, non-tender, nondistended. BS normal. MUSCULOSKELETAL: Extremities without clubbing, cyanosis, or edema. RLE in splint. NEUROLOGICAL: Awake, alert. +developmental delay, minimally conversive. Moving both upper and lower extremities spontaneously. PSYCH: Mood and affect appropriate. Medications and IVs Current Medications Medications (Trade) Dose Ordered Sig/Zuri Route Start Time Stop Time Status Last Admin (NS Flush) 2 ml UNSCH PRN IV FLUSH 12/17/17 23:00 (NS Flush) 2 ml BID IV FLUSH 12/18/17 09:00 12/18/17 20:08 (Zofran Inj) 4 mg Q6H PRN IVP 12/17/17 23:00 (Tylenol) 650 mg Q6H PRN PO 12/17/17 23:00 (Dilaudid Pf Inj) 1 mg Q3H PRN IV PUSH 12/17/17 23:00 (Dilaudid Pf Inj) 2 mg Q3H PRN IV PUSH 12/17/17 23:00 (Pilar-Colace) 1 tab BID PO 12/18/17 09:00 12/19/17 08:13 (Milk Of Magnesia Liq) 30 ml Q12H PRN PO 12/17/17 23:00 (Senokot) 17.2 mg Q12H PRN PO 12/17/17 23:00 (Dulcolax Supp) 10 mg DAILY PRN RECTAL 12/17/17 23:00 (Lactulose Liq) 30 ml DAILY PRN PO 12/17/17 23:00 (Lasix) 20 mg DAILY PO 12/18/17 09:00 Future Hold 12/18/17 08:44 (Hydrea) 500 mg DAILY PO 12/18/17 09:00 12/19/17 08:14 (Keppra) 500 mg BID PO 12/18/17 09:00 12/19/17 08:13 (Prinivil) 5 mg DAILY PO 12/18/17 09:00 12/19/17 08:12 Sodium Chloride 1,000 ml @ 0 mls/hr Q10H IV 12/18/17 12:00 12/18/17 22:00 A/P Problem List: (1) Chest pain ICD Code: R07.9 - Chest pain, unspecified (2) Sickle cell crisis ICD Code: D57.00 - Hb-SS disease with crisis, unspecified (3) Anemia ICD Code: D64.9 - Anemia, unspecified (4) Seizure disorder ICD Code: G40.909 - Seizure disorder Status: Chronic Assessment and Plan Sickle Cell Crisis Retic Count 10.2, hgb 5.4. S/p 1 unit red blood cells with adequate response. Hematology consult appreciated. - discontinue IV fluids as chest x-ray shows vascular congestion. - resume home Hydroxyurea. - Analgesics/antiemetics/ oxygen as needed. - Follow CBC. Atypical chest pain Acute onset of chest pain on day of admission, likely s/t above. Currently chest pain free. CXR w/ no acute findings, similar to previous from 11/24. Has had recent cardiac work-up. Trops are flat. - pain control as needed with a bowel regimen. - telemetry. - CXR in AM. Seizure disorder Chronic. - Resume home Keppra. Hypernatremia Possibly s/t decreased PO intake. Improved with IVFs. - ADAT. - d/c 1/2 NS. DVT Prophylaxis: SCD/Teds Discharge Planning Hopefully discharge to SNF in a.m. Problem Qualifiers (1) Chest pain: Qualified Codes: R07.9 - Chest pain, unspecified Tim Contreras DO Dec 19, 2017 12:44
[2017-12-20] VITALS (8 sets, daily range): BP systolic 107–138; BP diastolic 53–65; PULSE 54–76; RESP 16–18; TEMP 97.3–98.2; O2SAT 92–97
[2017-12-20 06:12] LABS: AUTOMATED NEUTROPHIL # 2.4 TH/MM3 (1.8-7.7); BASOPHIL # 0.1 TH/MM3 (0-0.2); BASOPHIL % 1.2 % (0.0-2.0); EOSINOPHIL # 0.4 TH/MM3 (0-0.4); EOSINOPHIL % 8.5 % (0.0-4.0); LYMPH % 26.8 % (9.0-44.0); LYMPHOCYTE # 1.3 TH/MM3 (1.0-4.8); MEAN CELL VOLUME 97.4 FL (80.0-100.0); MEAN CORPUSCULAR HEMOGLOBIN 34.2 PG (27.0-34.0); MEAN CORPUSCULAR HGB CONC 35.1 % (32.0-36.0); MONO % 13.6 % (0.0-8.0); MONOCYTE # 0.7 TH/MM3 (0-0.9); NEUT % 49.9 % (16.0-70.0); PLATELET COUNT 192 TH/MM3 (150-450); RED BLOOD COUNT 1.99 MIL/MM3 (4.00-5.30); RED CELL DISTRIBUTION WIDTH 20.6 % (11.6-17.2); WHITE BLOOD COUNT 4.9 TH/MM3 (4.0-11.0)
[2017-12-20 06:25] LABS: HEMATOCRIT 19.4 % (35.0-46.0); HEMOGLOBIN 6.8 GM/DL (11.6-15.3)
--- NOTE | 2017-12-20 06:36 | RADRPT ---
EXAM DATE/TIME: 12/20/2017 05:20 [facility] COMPARISON: CHEST SINGLE AP, December 19, 2017, 5:05. INDICATIONS : Short of breath, pain in chest , sickle cell crisis MEDICAL HISTORY : Sickle Cell disease. Hypertension seizures SURGICAL HISTORY : Tubal ligation. Cholecystectomy. ENCOUNTER: Subsequent ACUITY: 4 - 6 days PAIN SCORE: Non-responsive. LOCATION: Bilateral chest FINDINGS: Trace atelectasis seen at the bases, unchanged. No perceptible effusion. No pneumothorax. Mild cardiomegaly is stable. CONCLUSION: Mild atelectasis and mild cardiomegaly unchanged. Suhail Alberto MD on December 20, 2017 at 6:34 Board Certified Radiologist. This report was verified electronically.
[2017-12-20] MEDS: LISINOPRIL 5 MG TAB PO SCH (08:07)
[2017-12-20] MEDS: levETIRAcetam 500 MG TAB PO SCH ×2 (08:07→21:33)
[2017-12-20] MEDS: DOCUSATE SODIUM 50 MG/SENNA 8.6 MG TAB PO SCH ×2 (08:07→21:33)
[2017-12-20] MEDS: HYDROXYUREA 500 MG CAP PO SCH (08:08)
[2017-12-20 08:19] LABS: BASOPHILS 1 % (0-2); CORRECTED NUCLEATED RBC 9 /100 WBC (0-0); HOWELL-JOLLY BODIES PRESENT (NONE SEEN); LYMPHOCYTES 23 % (9-44); MONOCYTES 13 % (0-8); NEUTROPHIL # MANUAL DIFF 2.5 TH/MM3 (1.8-7.7); NUCLEATED RED BLOOD CELL 9 (0-0); POLYS (SEG NEUTROPHILS) 52 % (16-70)
[2017-12-20 08:20] LABS: OVALOCYTES 1+ (NORMAL)
[2017-12-20 08:21] LABS: SICKLE CELLS 1+ (NORMAL)
[2017-12-20] MEDS: SODIUM CHLOR 0.45% 1000 ML INJ 1,000 ML IV SCH (08:25)
[2017-12-20] MEDS: SODIUM CHLORIDE 0.9% FLUSH 10 ML FLUSH IV FLUSH SCH ×2 (08:25→21:34)
--- NOTE | 2017-12-20 13:08 | PD.ONC.PN ---
Subjective Subjective Remarks Afebrile overnight. Patient resting in bed in nad. No complaints. denies pain. had BM yesterday. mother at bedside. Objective Data Date Time Temp Pulse Resp B/P (MAP) Pulse Ox O2 Delivery O2 Flow Rate FiO2 12/20/17 12:00 97.7 72 16 110/63 (79) 96 12/20/17 08:00 97.3 65 16 124/65 (84) 92 12/20/17 04:00 97.4 57 16 117/58 (77) 96 12/20/17 04:00 54 12/20/17 03:27 18 12/20/17 00:00 98.2 62 17 117/56 (76) 95 12/19/17 23:46 63 12/19/17 20:00 97.9 72 18 114/57 (76) 97 12/19/17 19:45 74 12/19/17 16:00 97.6 75 17 107/57 (74) 95 12/20/17 12/20/17 12/20/17 07:00 15:00 23:00 Intake Total 120 ml 1000 ml Balance 120 ml 1000 ml Result Diagram: 12/20/17 0510 12/19/17 0405 Laboratory Results Laboratory Tests Test 12/20/17 05:10 White Blood Count 4.9 TH/MM3 Red Blood Count 1.99 MIL/MM3 Hemoglobin 6.8 GM/DL Hematocrit 19.4 % Mean Corpuscular Volume 97.4 FL Mean Corpuscular Hemoglobin 34.2 PG Mean Corpuscular Hemoglobin Concent 35.1 % Red Cell Distribution Width 20.6 % Platelet Count 192 TH/MM3 Mean Platelet Volume 8.0 FL Neutrophils (%) (Auto) 49.9 % Lymphocytes (%) (Auto) 26.8 % Monocytes (%) (Auto) 13.6 % Eosinophils (%) (Auto) 8.5 % Basophils (%) (Auto) 1.2 % Neutrophils # (Auto) 2.4 TH/MM3 Lymphocytes # (Auto) 1.3 TH/MM3 Monocytes # (Auto) 0.7 TH/MM3 Eosinophils # (Auto) 0.4 TH/MM3 Basophils # (Auto) 0.1 TH/MM3 CBC Comment AUTO DIFF Differential Total Cells Counted 100 Neutrophils % (Manual) 52 % Lymphocytes % 23 % Monocytes % 13 % Eosinophils % 11 % Basophils % 1 % Neutrophils # (Manual) 2.5 TH/MM3 Nucleated Red Blood Cells 9 /100 WBC Differential Comment FINAL DIFF MANUAL Platelet Estimate NORMAL Platelet Morphology Comment NORMAL Sickle Cells 1+ Ovalocytes 1+ [place] Bodies PRESENT Imaging Studies Last 24 hours Impressions Chest X-Ray 12/20/17 0600 Signed Impressions: Service Date/Time: Wednesday, December 20, 2017 05:20 - CONCLUSION: Mild atelectasis and mild cardiomegaly unchanged. Suhail Alberto MD Administered Medications Medications (Trade) Dose Ordered Sig/Zuri Route PRN Reason Start Time Stop Time Status Last Admin Dose Admin Sodium Chloride (NS Flush) 2 ml BID IV FLUSH 12/18/17 09:00 12/20/17 08:25 Hydromorphone HCl (Dilaudid Pf Inj) 1 mg Q3H PRN IV PUSH Pain 3-5 12/17/17 23:00 12/20/17 02:57 Senna/Docusate Sodium (Pilar-Colace) 1 tab BID PO 12/18/17 09:00 12/20/17 08:07 Furosemide (Lasix) 20 mg DAILY PO 12/18/17 09:00 Future Hold 12/18/17 08:44 Hydroxyurea (Hydrea) 500 mg DAILY PO 12/18/17 09:00 12/20/17 08:08 Levetriacetam (Keppra) 500 mg BID PO 12/18/17 09:00 12/20/17 08:07 Lisinopril (Prinivil) 5 mg DAILY PO 12/18/17 09:00 12/20/17 08:07 Sodium Chloride 1,000 ml @ 0 mls/hr Q10H IV 12/18/17 12:00 12/20/17 08:25 Objective Remarks GENERAL: Pleasant female, sitting up in bed in nad. SKIN: Warm and dry. HEAD: Normocephalic. EYES: No injection or drainage. NECK: Supple, trachea midline. CARDIOVASCULAR: Regular rate and rhythm RESPIRATORY: Breath sounds equal bilaterally. No accessory muscle use. GASTROINTESTINAL: Abdomen soft, non-tender, nondistended. EXTREMITIES: No cyanosis NEUROLOGICAL: awake and alert. normal speech. moving all extremities. Assessment/Plan Problem List: (1) Sickle cell disease ICD Codes: D57.1 - Sickle-cell disease without crisis Status: Chronic Plan: 12/20: hgb =6.8, will order 1 unit pRBC Hx/Workup: Patient has history of sickle/beta thalassemia. She is taking hydroxyurea 500 mg twice daily. The patient's hemoglobin normally tends to run between 6.5 and 7. Assessment 52-year-old female with history of sickle cell disease admitted with chest pain Plan 1. give 1 unit pRBC 2. monitor CBC 3. continue supportive care Attending Statement The exam, history, and the medical decision-making described in the above note were completed with the assistance of the mid-level provider. I reviewed and agree with the findings presented. I attest that I had a [id number] encounter with the patient on the same day, and personally performed and documented my assessment and findings in the medical record. received pRBC transfusion earlier denies any pain eating dinner no dyspnea o2 sats in the high 90's Kisha Daigle Dec 20, 2017 13:08 Micky Castro MD Dec 20, 2017 22:28
[2017-12-20] MEDS ORDERED: SODIUM CHLOR 0.9% 250 ML INJ 250 ML IV ONE (13:15)
[2017-12-20] MEDS ORDERED: diphenhydrAMINE HCL 25 MG CAP PO PRN (13:15)
[2017-12-20] MEDS ORDERED: ACETAMINOPHEN 325 MG TAB PO PRN (13:15)
--- NOTE | 2017-12-20 16:08 | HHI.PR ---
Subjective Remarks The patient was resting comfortably in bed. She said that she had chronic right leg pain. She also said that she has some chest pain earlier that got better. She understood that she would get a blood transfusion. Discussed with nursing. Objective Vitals Vital Signs Date Time Temp Pulse Resp B/P (MAP) Pulse Ox O2 Delivery O2 Flow Rate FiO2 12/20/17 12:00 97.7 72 16 110/63 (79) 96 12/20/17 08:00 97.3 65 16 124/65 (84) 92 12/20/17 04:00 97.4 57 16 117/58 (77) 96 12/20/17 04:00 54 12/20/17 03:27 18 12/20/17 00:00 98.2 62 17 117/56 (76) 95 12/19/17 23:46 63 12/19/17 20:00 97.9 72 18 114/57 (76) 97 12/19/17 19:45 74 I/O 12/19/17 12/19/17 12/19/17 12/20/17 12/20/17 12/20/17 07:00 15:00 23:00 07:00 15:00 23:00 Intake Total 680 ml 2200 ml 120 ml 1000 ml Balance 680 ml 2200 ml 120 ml 1000 ml Intake Oral 680 ml 1200 ml 120 ml IV Total 1000 ml 1000 ml # Voids 3 8 2 # Bowel Movements 2 Result Diagram: 12/20/17 0510 12/19/17 0405 Imaging Last Impressions Chest X-Ray 12/20/17 0600 Signed Impressions: Service Date/Time: Wednesday, December 20, 2017 05:20 - CONCLUSION: Mild atelectasis and mild cardiomegaly unchanged. Suhail Alberto MD Objective Remarks GENERAL: No acute distress. HEENT: PERRLA, EOMI. No scleral icterus or conjunctival pallor. No lid lag or facial droop. CARDIOVASCULAR: Regular rate and rhythm. Grade 2 systolic murmur appreciated. RESPIRATORY: CTAB. GASTROINTESTINAL: Abdomen soft, non-tender, nondistended. BS normal. MUSCULOSKELETAL: Extremities without clubbing, cyanosis, or edema. RLE in splint. NEUROLOGICAL: Awake, alert. +developmental delay. Moving both upper and lower extremities spontaneously. PSYCH: Mood and affect appropriate. Medications and IVs Current Medications Medications (Trade) Dose Ordered Sig/Zuri Route Start Time Stop Time Status Last Admin (NS Flush) 2 ml UNSCH PRN IV FLUSH 12/17/17 23:00 (NS Flush) 2 ml BID IV FLUSH 12/18/17 09:00 12/20/17 08:25 (Zofran Inj) 4 mg Q6H PRN IVP 12/17/17 23:00 (Tylenol) 650 mg Q6H PRN PO 12/17/17 23:00 (Dilaudid Pf Inj) 1 mg Q3H PRN IV PUSH 12/17/17 23:00 12/20/17 02:57 (Dilaudid Pf Inj) 2 mg Q3H PRN IV PUSH 12/17/17 23:00 (Pilar-Colace) 1 tab BID PO 12/18/17 09:00 12/20/17 08:07 (Milk Of Magnesia Liq) 30 ml Q12H PRN PO 12/17/17 23:00 (Senokot) 17.2 mg Q12H PRN PO 12/17/17 23:00 (Dulcolax Supp) 10 mg DAILY PRN RECTAL 12/17/17 23:00 (Lactulose Liq) 30 ml DAILY PRN PO 12/17/17 23:00 (Lasix) 20 mg DAILY PO 12/18/17 09:00 Future Hold 12/18/17 08:44 (Hydrea) 500 mg DAILY PO 12/18/17 09:00 12/20/17 08:08 (Keppra) 500 mg BID PO 12/18/17 09:00 12/20/17 08:07 (Prinivil) 5 mg DAILY PO 12/18/17 09:00 12/20/17 08:07 Sodium Chloride 1,000 ml @ 0 mls/hr Q10H IV 12/18/17 12:00 12/20/17 08:25 Sodium Chloride 250 ml @ 15 mls/hr ONCE ONCE IV 12/20/17 13:15 12/21/17 05:54 (Tylenol) 650 mg Q4H PRN PO 12/20/17 13:15 (Benadryl) 25 mg Q4H PRN PO 12/20/17 13:15 A/P Problem List: (1) Chest pain ICD Code: R07.9 - Chest pain, unspecified (2) Sickle cell crisis ICD Code: D57.00 - Hb-SS disease with crisis, unspecified (3) Anemia ICD Code: D64.9 - Anemia, unspecified (4) Seizure disorder ICD Code: G40.909 - Seizure disorder Status: Chronic Assessment and Plan Sickle Cell Crisis Retic Count 10.2, hgb 5.4. S/p 1 unit red blood cells with adequate response. Hematology consult appreciated. - discontinue IV fluids as chest x-ray showed vascular congestion. - resume home Hydroxyurea. - Analgesics/antiemetics/ oxygen as needed. - Follow CBC. Transfuse an additional unit of red cells 12/20 per hematology. Atypical chest pain Acute onset of chest pain on day of admission, likely s/t above. Comes and goes. CXR w/ no acute findings, similar to previous from 11/24. Has had recent cardiac work-up. Trops are flat. Repeat CXR stable. - pain control as needed with a bowel regimen. - telemetry. Seizure disorder Chronic. - Resume home Keppra. Hypernatremia Possibly s/t decreased PO intake. Improved with IVFs. - ADAT. - d/c 1/2 NS. DVT Prophylaxis: SCD/Teds Discharge Planning D/c to SNF when cleared by hematology Problem Qualifiers (1) Chest pain: Qualified Codes: R07.9 - Chest pain, unspecified Tim Contreras DO Dec 20, 2017 16:07
[2017-12-21] VITALS: BP 134/65; PULSE 66; RESP 18; TEMP 97.7; O2SAT 95
[2017-12-21] MEDS: HYDROmorphone HCL PF 2 MG/ML VIAL IV PUSH PRN ×2 (01:52→06:16)
[2017-12-21 04:00] VITALS: BP 148/70; PULSE 64; RESP 18; TEMP 97.1; O2SAT 92
[2017-12-21 05:06] LABS: AUTOMATED NEUTROPHIL # 2.5 TH/MM3 (1.8-7.7); BASOPHIL % 0.9 % (0.0-2.0); EOSINOPHIL # 0.4 TH/MM3 (0-0.4); EOSINOPHIL % 8.1 % (0.0-4.0); HEMOGLOBIN 7.7 GM/DL (11.6-15.3); LYMPH % 28.1 % (9.0-44.0); LYMPHOCYTE # 1.4 TH/MM3 (1.0-4.8); MEAN CELL VOLUME 96.1 FL (80.0-100.0); MEAN CORPUSCULAR HEMOGLOBIN 33.6 PG (27.0-34.0); MEAN PLATELET VOLUME 8.1 FL (7.0-11.0); MONO % 12.6 % (0.0-8.0); MONOCYTE # 0.6 TH/MM3 (0-0.9); NEUT % 50.3 % (16.0-70.0); PLATELET COUNT 172 TH/MM3 (150-450); RED BLOOD COUNT 2.29 MIL/MM3 (4.00-5.30); WHITE BLOOD COUNT 4.9 TH/MM3 (4.0-11.0)
[2017-12-21 07:34] LABS: CORRECTED NUCLEATED RBC 4 /100 WBC (0-0); LYMPHOCYTES 36 % (9-44); MONOCYTES 7 % (0-8); NEUTROPHIL # MANUAL DIFF 2.5 TH/MM3 (1.8-7.7); NUCLEATED RED BLOOD CELL 4 (0-0); POLYS (SEG NEUTROPHILS) 51 % (16-70)
[2017-12-21 07:36] LABS: HOWELL-JOLLY BODIES PRESENT (NONE SEEN); OVALOCYTES 1+ (NORMAL); SICKLE CELLS 1+ (NORMAL)
[2017-12-21 08:00] VITALS: BP 117/58; PULSE 54; PULSE 57; RESP 16; TEMP 97.2; O2SAT 95
[2017-12-21] MEDS: SODIUM CHLORIDE 0.9% FLUSH 10 ML FLUSH IV FLUSH SCH (08:52)
[2017-12-21] MEDS ORDERED: HYDROmorphone HCL PF 2 MG/ML VIAL IV PUSH PRN (09:45)
[2017-12-21] MEDS ORDERED: ACETAMINOPHEN/HYDROcodone 325 MG/10 MG TAB PO PRN (09:45)
--- NOTE | 2017-12-21 09:48 | HHI.PR ---
Subjective Remarks Follow-up sickle cell pain crisis, anemia. Patient has nausea and vomiting this morning. Seems to be associated with IV Dilaudid. No chest pain or dyspnea. Objective Vitals Vital Signs Date Time Temp Pulse Resp B/P (MAP) Pulse Ox O2 Delivery O2 Flow Rate FiO2 12/21/17 04:00 97.1 64 18 148/70 (96) 92 12/21/17 00:00 97.7 66 18 134/65 (88) 95 12/20/17 21:47 97.5 67 18 138/61 96 12/20/17 20:00 97.5 76 18 133/61 (85) 94 12/20/17 17:53 98.1 69 16 107/54 97 12/20/17 17:32 97.4 69 16 109/53 95 12/20/17 12:00 97.7 72 16 110/63 (79) 96 I/O 12/20/17 12/20/17 12/20/17 12/21/17 12/21/17 12/21/17 07:00 15:00 23:00 07:00 15:00 23:00 Intake Total 120 ml 1000 ml 1010 ml 290 ml Output Total 80 ml Balance 120 ml 1000 ml 1010 ml 210 ml Intake Oral 120 ml 600 ml 240 ml IV Total 1000 ml 50 ml Packed Cells 400 ml Blood Product IV Normal Saline Flush 10 ml Output Chest Tube Drainage Total 80 ml # Voids 2 2 2 # Bowel Movements 1 Result Diagram: 12/21/17 0325 12/19/17 0405 Imaging Last Impressions Chest X-Ray 12/20/17 0600 Signed Impressions: Service Date/Time: Wednesday, December 20, 2017 05:20 - CONCLUSION: Mild atelectasis and mild cardiomegaly unchanged. Suhail Alberto MD Objective Remarks General: No acute distress. Heart: Regular rate and rhythm. No murmur. Lungs: Clear to auscultation bilaterally. No wheezes, rales, or rhonchi. Breathing is nonlabored. Abdomen: Soft, nontender, nondistended. Extremities: No lower extremity edema. Psych: Alert, answers questions appropriately. Neuro: Normal speech. 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 Sickle cell pain crisis: Appreciate hematology recommendations. Status post transfusion PRBCs yesterday. Continue hydroxyurea. Continue pain control , oxygen as needed. 2. Nausea/vomiting: Continue antiemetics. May be secondary to pain medication. Will transition back to oral pain medication. 3. Seizure disorder: Chronic. Continue Keppra. 4. Atypical chest pain: Resolved. Recent cardiac workup negative. 5. Hypernatremia: Secondary to decreased oral intake. Improved with IV fluids. 6. DVT prophylaxis: GERARDO Joyce. Discharge Planning Cleared for discharge by hematology. Plan for discharge to SNF soon, when able to tolerate p.o. without nausea and vomiting. Problem Qualifiers (1) Chest pain: Qualified Codes: R07.9 - Chest pain, unspecified Derek Morel MD Dec 21, 2017 09:48
[2017-12-21] MEDS: levETIRAcetam 500 MG TAB PO SCH (09:58)
[2017-12-21] MEDS: HYDROXYUREA 500 MG CAP PO SCH (09:59)
[2017-12-21] MEDS: LISINOPRIL 5 MG TAB PO SCH (10:00)
[2017-12-21] MEDS: DOCUSATE SODIUM 50 MG/SENNA 8.6 MG TAB PO SCH (10:57)
[2017-12-21 12:00] VITALS: BP 121/62; PULSE 60; RESP 16; TEMP 97.3; O2SAT 100
[2017-12-21] MEDS ORDERED: HYDR-3583 PO (15:34)
--- NOTE | 2017-12-21 15:34 | HHI.DCPOC ---
Discharge Care Plan Diagnosis: (1) Seizure disorder (2) Sickle cell crisis (3) Anemia Goals to Promote Your Health * To prevent worsening of your condition and complications * To maintain your health at the optimal level Directions to Meet Your Goals Take your medications as prescribed Follow your dietary instruction Follow activity as directed Keep your appointments as scheduled Take your immunizations and boosters as scheduled If your symptoms worsen call your PCP, if no PCP go to Urgent Care Center or Emergency Room Smoking is Dangerous to Your Health. Avoid second hand smoke Call the 24-hour hour crisis hotline for domestic abuse at Derek Morel MD Dec 21, 2017 15:34
--- NOTE | 2017-12-21 15:46 | HHI.DS ---
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 Outpatient labs w/ Trop 0.02 , Hgb 6.4. No active bleeding noted. Pt poor historian due to developmental delay, but able to tell me she has no chest pain at this time. History obtained from pt's Mother and Grandmother at bedside. Per their report, pt complained of chest pain earlier today. No chest pain, no SOB, no fever/ chills. On arrival, BP 108/53, HR 86, O2 sat 96% on RA, Afebrile. Hemoglobin 6.4. Repeat troponin 0 0.02. CXR with cardiomegaly with mild basilar airspace disease, no significant change from previous. CBC/BMP: 12/21/17 0325 12/19/17 0405 Significant Findings Laboratory Tests Test 12/19/17 04:05 12/20/17 05:10 12/21/17 03:25 Red Blood Count 2.05 MIL/MM3 (4.00-5.30) 1.99 MIL/MM3 (4.00-5.30) 2.29 MIL/MM3 (4.00-5.30) Hemoglobin 7.1 GM/DL (11.6-15.3) 6.8 GM/DL (11.6-15.3) 7.7 GM/DL (11.6-15.3) Hematocrit 19.8 % (35.0-46.0) 19.4 % (35.0-46.0) 22.0 % (35.0-46.0) Mean Corpuscular Hemoglobin 34.6 PG (27.0-34.0) 34.2 PG (27.0-34.0) Red Cell Distribution Width 20.0 % (11.6-17.2) 20.6 % (11.6-17.2) 19.0 % (11.6-17.2) Reticulocyte Count 15.8 % (0.4-3.0) Absolute Reticulocyte Count 320.9 MIL/L (20.0-150.0) Total Bilirubin 1.3 MG/DL (0.2-1.0) Direct Bilirubin 0.3 MG/DL (0.0-0.2) Chloride Level 113 MEQ/L (98-107) Indirect Bilirubin 1.0 MG/DL (0.0-0.8) Lactate Dehydrogenase 448 U/L (84-246) Monocytes (%) (Auto) 13.6 % (0.0-8.0) 12.6 % (0.0-8.0) Eosinophils (%) (Auto) 8.5 % (0.0-4.0) 8.1 % (0.0-4.0) Monocytes % 13 % (0-8) Eosinophils % 11 % (0-4) 6 % (0-4) Nucleated Red Blood Cells 9 /100 WBC (0-0) 4 /100 WBC (0-0) Sickle Cells 1+ (NORMAL) 1+ (NORMAL) Ovalocytes 1+ (NORMAL) 1+ (NORMAL) Polychromasia 2.0 % (0.0-1.9) Imaging Last Impressions Chest X-Ray 12/20/17 0600 Signed Impressions: Service Date/Time: Wednesday, December 20, 2017 05:20 - CONCLUSION: Mild atelectasis and mild cardiomegaly unchanged. Suhail Alberto MD PE at Discharge General: No acute distress. Heart: Regular rate and rhythm. No murmur. Lungs: Clear to auscultation bilaterally. No wheezes, rales, or rhonchi. Breathing is nonlabored. Abdomen: Soft, nontender, nondistended. Extremities: No lower extremity edema. Psych: Alert, answers questions appropriately. Neuro: Normal speech. +developmental delay Pt update on day of discharge The patient had nausea and vomiting this morning, but that resolved once IV Dilaudid was discontinued. She was able to tolerate food by mouth. She was felt to be stable for discharge to SNF. Hospital Course The patient was admitted for management of sickle cell pain crisis, anemia. Hematology was consulted. She received transfusion of 2 units PRBCs during hospitalization. Pain was controlled. She continued to improve clinically throughout the hospitalization. She was cleared for discharge by hematology. She had nausea and vomiting, most likely associated with the pain medication. This improved and she was felt to be stable for discharge. Pt Condition on Discharge: Stable Discharge Disposition: Discharge to SNF Discharge Time: > 30 minutes Discharge Instructions DIET: Follow Instructions for: As Tolerated, No Restrictions Activities you can perform: Regular-No Restrictions Follow up Referrals: Oncology/Hematology - 1 Week with Micky Castro MD PCP Follow-up - 1 Week with Keenan Girard MD Continued Medications: Acetaminophen (Tylenol) 325 Mg Tab 650 MG PO Q4H PRN for PAIN/TEMP 100F OR ABOVE, TAB 0 Refills Enoxaparin Inj (Lovenox Inj) 40 Mg/0.4 Ml Syr 40 MG SQ Q24H, #30 INJECTION Furosemide (Furosemide) 20 Mg Tab 20 MG PO DAILY, TAB 0 Refills Hydrocodone/Acetaminophen (Hydrocodone-Acetamin 10-325 mg) 10 Mg-325 Mg Tablet 1 TAB PO Q6H PRN for PAIN, #12 TAB 0 Refills (This prescription has been renewed ) Hydroxyurea (Hydrea) 500 Mg Cap 500 MG PO DAILY, CAP 0 Refills Levetiracetam (Keppra) 500 Mg Tab 500 MG PO BID for Control Seizures, #60 TAB 0 Refills Lisinopril (Lisinopril) 5 Mg Tab 5 MG PO DAILY for Blood Pressure Management, #30 TAB 0 Refills Potassium Chloride ER (Potassium Chloride ER) 10 Meq Tab 10 MEQ PO DAILY for Electrolyte Replacement, #30 TAB 0 Refills Derek Morel MD Dec 21, 2017 15:46
[2017-12-21 16:00] VITALS: BP 105/56; PULSE 67; RESP 16; TEMP 98; O2SAT 96
== END 2017-12-21 17:44 | DRG 812 ==
LOC: NEPC 18:50 → NEDA 22:49 → N07A 12-18 00:11
PROVIDERS: ADMIT Family Medicine; ATTEND Family Medicine
PROC: 30233N1 Transfusion of Nonautologous Red Blood Cells into Peripheral Vein, Percutaneous Approach (ICD-10-PCS; principal; 2017-12-18)
DX: D57.00 Hb-SS disease with crisis, unspecified (principal); E87.0 Hyperosmolality and hypernatremia; R07.89 Other chest pain; I10 Essential (primary) hypertension; F32.9 Major depressive disorder, single episode, unspecified; F41.9 Anxiety disorder, unspecified; G40.909 Epilepsy, unspecified, not intractable, without status epilepticus; R62.50 Unspecified lack of expected normal physiological development in childhood
CPT/HCPCS: 36430; 71045; 80048; 80053; 81001; 82247; 82248; 82550; 83615; 83690; 83735; 83880; 84484; 85007; 85014; 85018; 85027; 85044; 86140; 86850; 86900; 86901; 86920; 93005; 96360; J1170; J1956; J2405; J7030; J7050; P9016